=== PATIENT | male | born 1955 | race Caucasian/White ===

== ENCOUNTER 2016-08-01 13:39 | Emergency (ER) | payer MEDICARE, OTHER ==
[2016-08-01] MEDS ORDERED: HYDROmorphone 1 MG/ML 1 ML SYRINGE IM STA (14:08)
--- NOTE | 2016-08-01 14:15 | ED ---
Back Pain HPI - General Chief Complaint: Back Pain/Injury Stated Complaint: Rt Side Pain Time Seen by Provider: 08/01/16 13:59 Source: patient Limitations: no limitations - History of Present Illness Initial Comments: 61-year-old male history of back pain presents with increasing back pain for the last 3 weeks pain radiating down his right lower abdomen worse with bending or moving. Patient suffered a L1 fracture in about 2007. He's had diarrhea multiple imaging studies he's had injections in the past. He did not suffer any new fall. Is no loss of bowel or bladder control pain does not radiate down the legs. He is currently on Percocet and gabapentin and has a pain contract with Dr. Kapadia. He was concerned about his abdomen he has no nausea vomiting diarrhea no pain with eating no fever no chills. He has had diabetes mellitus and hypertension is blood pressure somewhat elevated today per the nurse he states his sugars have been running somewhat elevated. Has been dealing with this with primary care. He did at the time of the injury have an injection of cement into the vertebra - Related Data Home Medications Medication Instructions Recorded Confirmed Gabapentin [Neurontin] 600 mg PO BID 12/17/13 08/01/16 Insulin Aspart [NovoLOG] 7 - 14 unit SQ TID 12/17/13 08/01/16 Insulin Glargine [Lantus] 50 - 100 unit SQ HS 12/17/13 08/01/16 rOPINIRole HCL [Requip] 0.5 mg PO BID 12/17/13 08/01/16 Gabapentin [Gabapentin] 900 mg PO HS 04/27/14 08/01/16 metFORMIN HCL [metFORMIN HCL] 1,000 mg PO BID 04/27/14 08/01/16 oxyCODONE-APAP 10-325MG [Percocet 1 tab PO Q6HR PRN 04/27/14 08/01/16 10-325 mg] Fenofibrate Nanocrystallized 145 mg PO DAILY 08/01/16 08/01/16 [Fenofibrate] Losartan Potassium 100 mg PO DAILY 08/01/16 08/01/16 Metoprolol Succinate [Toprol XL] 100 mg PO DAILY 08/01/16 08/01/16 Previous Rx's Medication Instructions Recorded Gabapentin 800 mg PO TID #90 tab 08/01/16 Allergies Allergy/AdvReac Type Severity Reaction Status Date / Time alprazolam [From Xanax] Allergy Rash/Hives Verified 08/01/16 14:24 duloxetine HCl Allergy "IT DIDN'T Verified 08/01/16 14:24 [From Cymbalta] MAKE ME FEEL WELL" fluoxetine HCl [From Prozac] Allergy Rash/Hives Verified 08/01/16 14:24 pregabalin [From Lyrica] Allergy Swelling Verified 08/01/16 14:24 Review of Systems ROS Statement: Those systems with pertinent positive or pertinent negative responses have been documented in the HPI. ROS Other: All systems not noted in ROS Statement are negative. Constitutional: Denies: fever, chills Eyes: Denies: eye discharge ENT: Denies: ear pain, throat pain, dental pain Respiratory: Denies: cough Cardiovascular: Denies: chest pain Gastrointestinal: Denies: abdominal pain, diarrhea Genitourinary: Denies: urgency, frequency Musculoskeletal: Reports: back pain (Burning pain radiating down from the low back across the right lower abdomen) Neurological: Denies: headache Psychiatric: Denies: anxiety, depression Hematological/Lymphatic: Denies: easy bleeding, easy bruising Past Medical History Past Medical History: Diabetes Mellitus, Hypertension Additional Past Medical History / Comment(s): STEROID INJECTION W/IN 3 MOS, chronic back pain History of Any Multi-Drug Resistant Organisms: None Reported Past Surgical History: Back Surgery Additional Past Surgical History / Comment(s): Facial surgery Past Anesthesia/Blood Transfusion Reactions: No Reported Reaction Past Psychological History: Depression Smoking Status: Current every day smoker Past Alcohol Use History: None Reported Additional Past Alcohol Use History / Comment(s): STARTED SMOKING AT AGE 19 Past Drug Use History: None Reported General Exam Limitations: no limitations General appearance: alert, in no apparent distress Head exam: Present: atraumatic Eye exam: Present: PERRL, EOMI. Absent: scleral icterus ENT exam: Present: normal oropharynx, mucous membranes moist, TM's normal bilaterally Neck exam: Present: normal inspection Respiratory exam: Present: normal lung sounds bilaterally Cardiovascular Exam: Present: regular rate, normal heart sounds GI/Abdominal exam: Present: soft, normal bowel sounds. Absent: tenderness, guarding, rebound Neurological exam: Present: alert, CN II-XII intact Psychiatric exam: Present: normal affect, normal mood Skin exam: Present: warm, dry Course Vital Signs 08/01/16 13:42 Temperature 97.5 F L Pulse Rate 73 Respiratory 20 Rate Blood Pressure 181/79 O2 Sat by Pulse 99 Oximetry Medical Decision Making - Medical Decision Making Good relief from the Dilaudid we'll increase his gabapentin 800 mg 3 times a day. Disposition Clinical Impression: Lumbar radiculopathy Disposition: HOME SELF-CARE Condition: Good Instructions: Chronic Back Pain (ED) Additional Instructions: Continue his Percocet follow-up with Dr. Kapadia and Dr. So Prescriptions: Gabapentin 800 mg PO TID #90 tab Referrals: Debra Rutledge DO [Primary Care Provider] - 1-2 days Time of Disposition: 15:01
[2016-08-01 15:13] VITALS: BP 133/76; PULSE 65; RESP 18; TEMP 97.4
== END 2016-08-01 15:13 | disposition home or self-care (01) ==
LOC: EC 13:39
DX: M54.16 Radiculopathy, lumbar region (principal); G89.29 Other chronic pain; M54.9 Dorsalgia, unspecified; I10 Essential (primary) hypertension; E11.9 Type 2 diabetes mellitus without complications; F17.200 Nicotine dependence, unspecified, uncomplicated; Z79.4 Long term (current) use of insulin; Z79.84 Long term (current) use of oral hypoglycemic drugs; Z79.899 Other long term (current) drug therapy; Z88.8 Allergy status to other drugs, medicaments and biological substances
CPT/HCPCS: 99283; 96372; J1170

== ENCOUNTER → 2019-08-18 | Outpatient (CLI) | payer MEDICARE, OTHER ==
--- NOTE | 2019-08-18 16:41 | MR ---
EXAMINATION TYPE: MR lumbar spine wo con DATE OF EXAM: 08/18/2019 COMPARISON: CT lumbar spine December 22, 2010 HISTORY: Failed back syndrome and radicular pain per order. History of surgery 2008 per patient with pain for 9 years into right leg. TECHNIQUE: Multiplanar, multisequence imaging of the lumbar spine is performed without IV contrast. FINDINGS: Sagittal images of the lumbar spine demonstrate vertebroplasty at L1 level through moderate compression fracture. There is new mild to moderate chronic compression fracture L4 level from 2011 CT. Alignment is stable. Multilevel disc desiccation with disc space heights fairly well maintained. The conus medullaris is normal in position and signal ending inferior L1 level. The bone marrow sig nal intensity is within normal limits. Mild multilevel anterior spurring is seen. Axial images show stable slight retropulsion of L1 vertebra mildly effaces the anterior thecal sac. A djacent disc spaces thought within normal limits. Axial images at L2-L3 level remain within normal limits. Axial images at L3-L4 level show mild facet degenerative changes bilaterally with ujub-wl-[id number] br oad disc bulge most prominent lateral aspects. Spinal canal is preserved. Bilateral neural foramina a re patent. Axial images at L4-L5 level shows moderate facet degenerative changes and ligament flavum hypertrophy effacing posterior lateral thecal sac. There is slight effacement anterior thecal sac due to posteri or retropulsion of the L4 vertebra axial image 12 and sagittal image 9. Moderate right and moderate t o severe left-sided neural foraminal narrowing are felt present. Axial images at L5-S1 level show advanced facet degenerative changes bilaterally. There is moderate l eft and mild right-sided neural foraminal narrowing. There is also a 7 mm synovial cyst on the left c ausing marked mass effect on the lateral aspect spinal canal confirmed on sagittal image 8. No suspicious incidental retroperitoneal findings. Paraspinal muscle bulk is preserved. IMPRESSION: New from 2011 but chronic jbcf-lh-[id number] compression type fracture L4 level. Multilevel degenerative changes greatest in the lower lumbar spine as detailed above.
== END | disposition home or self-care (01) ==
LOC: RADMRIMAIN 15:21
PROVIDERS: ATTEND Physician Assistant
DX: M47.26 Other spondylosis with radiculopathy, lumbar region (principal); S32.048A Other fracture of fourth lumbar vertebra, initial encounter for closed fracture
CPT/HCPCS: 72148

== ENCOUNTER 2020-06-24 13:47 | Emergency (ER) | payer MEDICARE, OTHER ==
[2020-06-24 13:56] VITALS: BP 157/80; PULSE 70; RESP 18; TEMP 98.5
--- NOTE | 2020-06-24 14:53 | ED ---
Back Pain [facility] - General Chief Complaint: Back Pain/Injury Stated Complaint: Back Pain Time Seen by Provider: 06/24/20 14:17 Source: patient Limitations: no limitations - History of Present Illness Initial Comments: Patient is a 65-year-old male presenting to emergency Department with complaints of an increase in his chronic back pain over the past few weeks. Patient has had previous surgeries with Dr. So, over 10 years ago. Patient states he takes Percocets and gabapentin for his pain. He states he hadn't lumbar MRI in July that has yet to follow up with Dr. So. Patient denies any falls or trauma. He states over the past 2 weeks he feels like his lower back pain has increasing. He denies any bowel or bladder incontinence. He denies any numbness and tingling into his lower extremities. He does state that sometimes the pain does radiate into the back of his left or right leg. He states it hurts to stand up straight. He does walk with a walking stick, he has been using this for years. He denies any saddle paresthesias. He denies any fever or chills. He has no further complaints at this time. - Related Data Home Medications Medication Instructions Recorded Confirmed Gabapentin [Neurontin] 600 mg PO BID 12/17/13 08/01/16 INSULIN ASPART (NovoLOG) [NovoLOG] 7 - 14 unit SQ TID 12/17/13 08/01/16 Insulin Glargine [Lantus] 50 - 100 unit SQ HS 12/17/13 08/01/16 rOPINIRole HCL [Requip] 0.5 mg PO BID 12/17/13 08/01/16 Gabapentin 900 mg PO HS 04/27/14 08/01/16 metFORMIN HCL 1,000 mg PO BID 04/27/14 08/01/16 oxyCODONE-APAP 10-325MG [Percocet 1 tab PO Q6HR PRN 04/27/14 08/01/16 10-325 mg] Fenofibrate Nanocrystallized 145 mg PO DAILY 08/01/16 08/01/16 [Fenofibrate] Losartan Potassium 100 mg PO DAILY 08/01/16 08/01/16 Metoprolol Succinate [Toprol XL] 100 mg PO DAILY 08/01/16 08/01/16 Previous Rx's Medication Instructions Recorded Gabapentin 800 mg PO TID #90 tab 08/01/16 Cyclobenzaprine [Flexeril] 5 mg PO BID #10 tablet 06/24/20 Allergies Allergy/AdvReac Type Severity Reaction Status Date / Time alprazolam [From Xanax] Allergy Rash/Hives Verified 06/24/20 13:56 duloxetine HCl Allergy "IT DIDN'T Verified 06/24/20 13:56 [From Cymbalta] MAKE ME FEEL WELL" fluoxetine HCl [From Prozac] Allergy Rash/Hives Verified 06/24/20 13:56 pregabalin [From Lyrica] Allergy Swelling Verified 06/24/20 13:56 Review of Systems ROS Statement: Those systems with pertinent positive or pertinent negative responses have been documented in the HPI. ROS Other: All systems not noted in ROS Statement are negative. Past Medical History Past Medical History: Diabetes Mellitus, Hypertension Additional Past Medical History / Comment(s): STEROID INJECTION W/IN 3 MOS, chronic back pain History of Any Multi-Drug Resistant Organisms: None Reported Past Surgical History: Back Surgery Additional Past Surgical History / Comment(s): Facial surgery Past Anesthesia/Blood Transfusion Reactions: No Reported Reaction Past Psychological History: Depression Smoking Status: Current every day smoker Past Alcohol Use History: None Reported Past Drug Use History: None Reported General Exam - General Exam Comments Initial Comments: GENERAL: Patient is well-developed and well-nourished. Patient is nontoxic and in no acute distress. HEAD: Atraumatic, normocephalic. EYES: Pupils equal round and reactive to light, extraocular movements intact, sclera anicteric, conjunctiva are normal. Eyelids were unremarkable. ENT: TMs normal, nares patent, oropharynx clear without exudates. Moist mucous membranes. NECK: Normal range of motion, supple without lymphadenopathy or JVD. LUNGS: Unlabored respirations. Breath sounds clear to auscultation bilaterally and equal. No wheezes rales or rhonchi. HEART: Regular rate and rhythm without murmurs, rubs or gallops. ABDOMEN: Soft, nontender, normoactive bowel sounds. No guarding, no rebound. No masses appreciated. : Deferred MUSCULOSKELETAL: Patient has no pain to palpation along the lumbar spine, lumbar paraspinals. He does have increased pain with lumbar extension. He has full 5 out of 5 strength of lower extremities bilaterally. He is neurovascular intact, sensation is equal and bilateral. No clubbing or cyanosis. NEUROLOGICAL: Patient is alert and oriented x 3. Motor and sensory are also intact. Cranial nerves II through XII grossly intact. Symmetrical smile. Normal speech, normal gait, patient walks with a walking stick. PSYCH: Normal mood, normal affect. SKIN: Warm, Dry, normal turgor, no rashes or lesions noted. Limitations: no limitations Course Vital Signs 06/24/20 13:52 Temperature 98.5 F Pulse Rate 70 Respiratory 18 Rate Blood Pressure 157/80 O2 Sat by Pulse 97 Oximetry Medical Decision Making - Medical Decision Making Patient is a 65-year-old male, with history of chronic back pain, presenting with an increase in his chronic back pain over the past 2 weeks. He denies any injuries or falls. Lumbar x-rays revealed diffuse osteopenia with multilevel degenerative disc disease, compression deformity of L4 which was present in the MRI in July, no other new findings. Patient has no saddle paresthesia, no numbness and tingling to his lower extremities, strength is equal and bilateral, no signs of cauda equina. I discussed these findings with the patient. I did offer pain medicine here, patient declined. Patient will have a trial of a muscle relaxer and heat to the area. He also follow-up with Dr. Vázquez. He is stable for discharge. He will continue with his already prescribed pain medications as well as gabapentin. Return parameters were discussed with the patient and he verbalized understanding. Disposition Clinical Impression: Acute exacerbation of chronic low back pain Disposition: HOME SELF-CARE Condition: Stable Instructions (If sedation given, give patient instructions): Acute Low Back Pain (ED) Additional Instructions: Please return to the Emergency Department if symptoms worsen or any other concerns. Continue with already prescribed medication for pain. Trial of Flexeril for muscle spasms. Heat to the area, follow-up with orthopedic doctor as discussed. Prescriptions: Cyclobenzaprine [Flexeril] 5 mg PO BID #10 tablet Is patient prescribed a controlled substance at d/c from ED?: No Referrals: Debra Rutledge DO [Primary Care Provider] - 1-2 days Chuy So DO [Doctor of Osteopathic Medicine] - 1-2 days
--- NOTE | 2020-06-24 14:59 | XR ---
EXAM TYPE: LUMBAR SPINE X RAY SERIES COMPARISON: 12/22/2010 HISTORY: Back pain TECHNIQUE: 4 views are submitted. FINDINGS: Alignment is anatomic. The pedicles are intact. Evidence of previous vertebroplasty noted. There is a mild superior endplate compression deformity of L4 which is new relative to the prior exam of 2010 but of indeterminate age. Diffuse osteopenia and multilevel degenerative change, hypertrophic changes and facet arthropathy. IMPRESSION: 1. Diffuse osteopenia with multilevel degenerative disc disease. Age-indeterminate moderate superior endplate compression fracture. Correlate with MRI or CT as clinically warranted.
== END 2020-06-24 15:38 | disposition home or self-care (01) ==
LOC: EC 13:47
DX: G89.29 Other chronic pain (principal); M54.5 Low back pain; M51.36 Other intervertebral disc degeneration, lumbar region; M85.88 Other specified disorders of bone density and structure, other site; E11.9 Type 2 diabetes mellitus without complications; I10 Essential (primary) hypertension; F17.200 Nicotine dependence, unspecified, uncomplicated; Z79.4 Long term (current) use of insulin; Z79.899 Other long term (current) drug therapy; Z88.8 Allergy status to other drugs, medicaments and biological substances
CPT/HCPCS: 72100; 99283

== ENCOUNTER → 2020-08-09 | Outpatient (CLI) | payer MEDICARE, OTHER ==
--- NOTE | 2020-08-09 14:35 | CT ---
EXAMINATION TYPE: CT lumbar spine wo con DATE OF EXAM: 08/09/2020 2:18 PM COMPARISON: CT lumbar spine December 22, 2010 HISTORY: Low back pain, hx of multiple falls with back injuries. CT DLP: 928 mGycm Automated exposure control for dose reduction was used. Unenhanced CT of the lumbar spine was performed. Bone and soft tissue window settings are submitted as well as coronal and sagittal reconstructions. 5 lumbar type vertebra are redemonstrated. There is persistent vertebroplasty and moderate compressio n type fracture at L1 level. Osseous structures are demineralized. There is mild to moderate compress ion type fracture L4 level without linear lucency to suggest acute fracture. There is severe disc spa ce narrowing T12-L1 level with grade 1 retrolisthesis T12 on L1. Posterior L1 retropulsion effacing a nterior thecal sac sagittal image 35 unchanged from prior study. Posterior spur disc complex L4-L5 le sedrick basis anterior thecal sac sagittal image 36. No acute fracture or dislocation is seen. Review of axial images show moderate to advanced facet degenerative changes and ligamentum flavum hyp ertrophy contributing to spinal canal stenosis at L4-L5 level on image 61. Moderate to advanced facet degenerative changes L5-S1 level are identified. Moderate calcified plaque of the abdominal aorta extends into branch vessels. There are scattered amanda cifications throughout the pancreas consistent with products of chronic pancreatitis. IMPRESSION: Demineralization. No acute fracture or dislocation is seen. Persistent moderate compressi on type fracture with vertebroplasty L1 level. Interval but chronic auux-zs-duwizias compression type fracture L4 level. Progression in degenerative changes lower lumbar spine. No paraspinal masses are identified. Lumbar segments are intact.
== END | disposition home or self-care (01) ==
LOC: RADCTMAIN 13:49
PROVIDERS: ATTEND Orthopaedic Surgery
DX: M47.816 Spondylosis without myelopathy or radiculopathy, lumbar region (principal); M81.8 Other osteoporosis without current pathological fracture; S32.018A Other fracture of first lumbar vertebra, initial encounter for closed fracture; Z88.8 Allergy status to other drugs, medicaments and biological substances; Z98.890 Other specified postprocedural states
CPT/HCPCS: 72131

== ENCOUNTER → 2020-08-15 | Day surgery (SDC) | payer MEDICARE, OTHER ==
[2020-08-13 14:09] VITALS: BMI 28.3
[~2020-08-15] MED LIST: DEXAMETHASONE SOD PHOSPHATE 10 MG/ML 1 ML VIAL ONE; IOPAMIDOL M200 10 ML VIAL ONE; IV FLUID CONTINUATION 1,000 ML IV ONE; LACTATED RINGERS 1,000 ML IV ONE; LIDOCAINE 1% (10MG/ML) FOR IV START INTRADERMA ONE; LIDOCAINE 1% (PF) 10 MG/ML (30 ML SDV) ONE; MIDAZOLAM 2 MG/2 ML VIAL ONE; fentaNYL (PF) 50 MCG/ML 2 ML AMP ONE
[2020-08-15 11:18] VITALS: TEMP 97.6
[2020-08-15 11:44] LABS: Glucose,Whole Blood 198 mg/dL (75-99)
--- NOTE | 2020-08-15 11:46 | P.PCN ---
Date of Procedure: 08/15/20 Surgeon: Cade Victoria Pathology: none sent Condition: stable Disposition: PACU Description of Procedure: PREOPERATIVE DIAGNOSIS: Lumbar radiculopathy POSTOPERATIVE DIAGNOSIS: Lumbar radiculopathy PROCEDURE 1. Transforaminal epidural steroid injection under fluoroscopic guidance at L5- S1 left side 2. Lumbar epidurogram. SURGEON: Cade Victoria MD HOLTER TECHNICIAN: ANESTHESIA: Local with 1% lidocaine; IV sedation with Versed and fentanyl. EBL: Minimal PROCEDURE INDICATION: The patient with low back pain and radiculopathy symptoms unresponsive to conservative treatment. PROCEDURE DESCRIPTION / TECHNIQUE: The patient was seen and identified in the preoperative area. Risks, benefits, complications, and alternatives were discussed with the patient. The patient agreed to proceed with the procedure and signed the consent. IV was started, and vital signs were stable. Patient was taken to the OR and time out was completed. The patient was placed in the prone position on procedure table and a pillow was placed under the abdomen to reduce lumbar lordosis. The lumbosacral area was prepped and draped in the usual sterile fashion. Critical pause was taken. Vital signs were closely monitored during the procedure. Conscious sedation was used during the procedure to decrease patients anxiety. The vertebral body of the lumbar vertebra L5 was squared off by tilting the C-arm cephalad then the C-arm was tilted to the oblique position and the target point was at the 6 o'clock position of the pedicle of then skin and deeper tissues were localized with 1% lidocaine. Subsequently, a 22-gauge 5- inch spinal needle was advanced under a tunneled view fluoroscopic guidance just underneath the chin of the Ender dog at the . Under lateral fluoroscopy, the needle was then advanced to the middle of the upper one third of the foramen between( ). After negative aspiration of CSF and blood and with no paresthesias, 1 mL of omnipaque contrast dye was injected excellent epidurogram and outlining of the L nerve root was identified. Subsequently, 2 mL of block solution containing 10 mg of Decadron and 1 mL of Lidocaine 1% PF was injected. Needle was removed and the same . At the end of the procedure, skin was cleansed, and bandages were applied. The patient has severe osteopenia which made the procedure technically more difficult due to difficulty identifying the bony landmarks. COMPLICATIONS: None COMMENTS: DISPOSITION / PLANS: The patient was placed in a supine position and transferred to the recovery area in a stable condition for observation. There was no evidence of lower extremity motor or sensory deficit after the procedure. Patient was discharged from the recovery room after meeting discharge criteria. Home discharge instructions were given to the patient by the staff.
[2020-08-15 12:08] VITALS: BP 134/76; PULSE 72; RESP 16
--- NOTE | 2020-08-15 12:20 | P.CONS ---
History of Present Illness - Reason for Consult Consult date: 08/15/20 - Chief Complaint Lower back and left leg pain - History of Present Illness This is a 65-year-old gentleman who was referred to our clinic by Dr. Hicksfor an L5-S1 transforaminal epidural steroid injection. The patient has chronic low back pain with radiation to the left ankle with numbness and tingling in the left leg in no specific radicular distribution. The patient had vertebral fracture due to trauma previously and also had kyphoplasty. He does have a history of osteopenia. The patient takes Percocet 4 times a day for his pain at home. He has tried physical therapy with little or no benefits as he states. His pain increases by standing, walking and any prolonged physical activities. The patient has a history of diabetes but he denies any treatment with anticoagulants. Past Medical History Past Medical History: Diabetes Mellitus, GERD/Reflux, Hypertension Additional Past Medical History / Comment(s): chronic back pain, rt leg RLS History of Any Multi-Drug Resistant Organisms: None Reported Past Surgical History: Back Surgery Additional Past Surgical History / Comment(s): Facial surgery Past Anesthesia/Blood Transfusion Reactions: No Reported Reaction Smoking Status: Current every day smoker Medications and Allergies Home Medications Medication Instructions Recorded Confirmed Type rOPINIRole HCL [Requip] 0.5 mg PO DAILY 12/17/13 08/15/20 History oxyCODONE-APAP 10-325MG [Percocet 1 tab PO Q6HR PRN 04/27/14 08/15/20 History 10-325 mg] Fenofibrate Nanocrystallized 145 mg PO DAILY 08/01/16 08/15/20 History [Fenofibrate] Gabapentin 800 mg PO TID #90 tab 08/01/16 08/15/20 Rx Losartan Potassium 100 mg PO DAILY 08/01/16 08/15/20 History Metoprolol Succinate [Toprol XL] 100 mg PO DAILY 08/01/16 08/15/20 History Dulaglutide [Trulicity] 1.5 mg SQ WALLIS 08/13/20 08/15/20 History Insulin Glargine,Hum.rec.anlog 36 unit SQ HS 08/13/20 08/15/20 History [Basaglar Kwikpen U-100] Meloxicam [Mobic] 15 mg PO DAILY 08/13/20 08/15/20 History amLODIPine [Norvasc] 5 mg PO DAILY 08/13/20 08/15/20 History buPROPion HCL [Wellbutrin XL] 300 mg PO DAILY 08/13/20 08/15/20 History rOPINIRole HCL [Requip] 1 mg PO HS 08/13/20 08/15/20 History Allergies Allergy/AdvReac Type Severity Reaction Status Date / Time alprazolam [From Xanax] Allergy Rash/Hives Verified 08/13/20 13:47 duloxetine HCl Allergy "IT DIDN'T Verified 08/13/20 13:47 [From Cymbalta] MAKE ME FEEL WELL" fluoxetine HCl [From Prozac] Allergy Rash/Hives Verified 08/13/20 13:47 pregabalin [From Lyrica] Allergy Swelling Verified 08/13/20 13:47 Physical Exam Vitals: Vital Signs Temp Pulse Resp BP Pulse Ox 08/15/20 12:07 72 16 134/76 97 08/15/20 11:50 76 15 128/73 97 08/15/20 11:11 97.6 F 88 16 167/85 94 L Intake and Output 08/14/20 08/15/20 08/15/20 22:59 06:59 14:59 Intake Total 300 Balance 300 Intake: IV 300 Other: Weight 102 kg - EENT Eyes: PERRLA - Neurologic Muscle strength in the lower extremities showed decreased but symmetrical weakness for knee flexion and extension to 4 out of 5 and normal ankle flexion and extension however decreased left toe dorsiflexion 4 out of 5 compared to the right side. He has positive tenderness in the lumbar paravertebral musculature bilaterally Straight leg raising test is mildly positive on the left side Neurologic: CNII-XII intact - Psychiatric Psychiatric: A&O x's 3, appropriate affect, intact judgment & insight Results Results: The patient had an MRI of the lumbar spine in 2019 which showed advanced facet the gentle changes bilaterally in the lower lumbar levels and moderate left neuroforaminal narrowing at the L5-S1 level with 7 mm synovial cyst on the left side causing marked mass effect on the lateral aspect of the spinal canal. It also showed moderate to severe neural foraminal stenosis on the left side at the L4-L5 level with multilevel disc desiccation and also fracture and the vertebral body of L1. Labs: Abnormal Lab Results - Last 24 Hours (Table) 08/15/20 Range/Units 11:23 POC Glucose (mg/dL) 198 H (75-99) mg/dL Assessment and Plan Plan: This is a 65-year-old gentleman with chronic lower back pain with radiation to the left lower extremity due to neuroforaminal stenosis and synovial cyst on the left side causing significant mass effect on the left side of the spinal canal. We will proceed with L5-S1 transforaminal epidural steroid injection on the left side under fluoroscopic guidance. The procedure will be repeated one more time and then the patient will follow up with . I thank you for the referral
--- NOTE | 2020-08-15 13:01 | FL ---
Fluoroscopy HISTORY: Pain 17 seconds fluoroscopy time supplied to the referring clinician. 2 intraoperative C-arm images docum ent the procedure. See dictated report from anesthesia.
== END ==
LOC: ORPAIN 10:59
PROVIDERS: ATTEND Anesthesiology
DX: G89.29 Other chronic pain (principal); M54.16 Radiculopathy, lumbar region; M48.061 Spinal stenosis, lumbar region without neurogenic claudication; M85.80 Other specified disorders of bone density and structure, unspecified site; E11.9 Type 2 diabetes mellitus without complications; I10 Essential (primary) hypertension; K21.9 Gastro-esophageal reflux disease without esophagitis; G25.81 Restless legs syndrome; F17.200 Nicotine dependence, unspecified, uncomplicated; Z88.8 Allergy status to other drugs, medicaments and biological substances; Z87.81 Personal history of (healed) traumatic fracture; Z98.890 Other specified postprocedural states; Z87.39 Personal history of other diseases of the musculoskeletal system and connective tissue; Z79.899 Other long term (current) drug therapy; Z79.891 Long term (current) use of opiate analgesic; Z79.4 Long term (current) use of insulin; Z79.1 Long term (current) use of non-steroidal anti-inflammatories (NSAID)
CPT/HCPCS: 64483; J2250; J1100; J2001; J3010; Q9966; 99152

== ENCOUNTER 2020-08-29 11:24 | Day surgery (SDC) | payer MEDICARE, OTHER ==
[2020-08-28 09:45] VITALS: BMI 28.1
[~2020-08-29 11:24] MED LIST changes: -DEXAMETHASONE SOD PHOSPHATE 10 MG/ML 1 ML VIAL ONE; -IOPAMIDOL M200 10 ML VIAL ONE; -IV FLUID CONTINUATION 1,000 ML IV ONE; -LACTATED RINGERS 1,000 ML IV ONE; +LACTATED RINGERS 1,000 ML IV SCH; -LIDOCAINE 1% (10MG/ML) FOR IV START INTRADERMA ONE; -LIDOCAINE 1% (PF) 10 MG/ML (30 ML SDV) ONE; -MIDAZOLAM 2 MG/2 ML VIAL ONE; -fentaNYL (PF) 50 MCG/ML 2 ML AMP ONE
[2020-08-29 11:55] VITALS: RESP 16; TEMP 97.4
[2020-08-29 12:09] LABS: Glucose,Whole Blood 156 mg/dL (75-99)
[2020-08-29] MEDS ORDERED: LIDOCAINE 1% (10MG/ML) FOR IV START INTRADERMA ONE (12:09)
[2020-08-29] MEDS ORDERED: methylPREDNISolone ACETATE 40 MG/ML 1 ML VIAL ONE (12:21)
[2020-08-29] MEDS ORDERED: fentaNYL (PF) 50 MCG/ML 2 ML AMP ONE (12:21)
[2020-08-29] MEDS ORDERED: MIDAZOLAM 2 MG/2 ML VIAL ONE (12:21)
[2020-08-29] MEDS ORDERED: IOPAMIDOL M200 10 ML VIAL ONE (12:21)
--- NOTE | 2020-08-29 12:36 | P.PCN ---
Date of Procedure: 08/29/20 Procedure(s) Performed: PREOPERATIVE DIAGNOSIS: Lumbar radiculopathy . POSTOPERATIVE DIAGNOSIS: Same as preoperative diagnoses. PROCEDURE 1. Transforaminal epidural steroid injection under fluoroscopic guidance at left L5-S1 level. (Fluoroscopy images stored on file in the radiology Department ) 2. Lumbar epidurogram . ANESTHESIA: Local with 1% lidocaine 3 ml , moderate sedation with intravenous Versed 2 mg ,and fentanyle 50 micrograms. EBL: Minimal PROCEDURE INDICATION: The patient with low back pain and radiculopathy symptoms unresponsive to conservative treatment. PROCEDURE DESCRIPTION / TECHNIQUE: The patient was seen and identified in the preoperative area. Risks, benefits, complications, and alternatives were discussed with the patient. The patient agreed to proceed with the procedure and signed the consent. IV was started, and vital signs were stable. Patient was taken to the OR and time out was completed. The patient was placed in the prone position on procedure table and a pillow was placed under the abdomen to reduce lumbar lordosis. The lumbosacral area was prepped and draped in the usual sterile fashion. Critical pause was taken. Vital signs were closely monitored during the procedure. Conscious sedation was used during the procedure to decrease patient s anxiety. Using oblique fluoroscopy, the chin of the `MelodyEnder dog at left L5-S1 level was identified, and the skin and deeper tissues just below was localized with 1% lidocaine. Subsequently, a 22-gauge 3.5-inch spinal needle was advanced under a tunneled view fluoroscopic guidance just underneath the chin of the `Cuauhtemocy dog at the left L5-S1 Under lateral fluoroscopy, the needle was then advanced to the posterior border of the interforaminal space. After negative aspiration of CSF and blood and with no paresthesias, 1 mL Isovue 200 contrast dye was injected excellent epidurogram and outlining of the nerve root Subsequently, 3 mL of block solution containing 40 mg Depo-Medrol and 2 mL of 0.9% normal saline PF was injected. Needle was removed . At the end of the procedure, skin was cleansed, and bandages were applied. COMPLICATIONS:none DISPOSITION / PLANS: The patient was placed in a supine position and transferred to the recovery area in a stable condition for observation. There was no evidence of lower extremity motor or sensory deficit after the procedure. Patient was discharged from the recovery room after meeting discharge criteria. Home discharge instructions were given to the patient by the staff. The patient was reexamined prior to discharge.
[2020-08-29] MEDS ORDERED: IV FLUID CONTINUATION 700 ML IV ONE (12:45)
[2020-08-29 12:56] VITALS: BP 131/77; PULSE 70
--- NOTE | 2020-08-29 13:54 | FL ---
Fluoroscopy HISTORY: Pain 6 seconds fluoroscopy time supplied to the referring clinician. 1 intraoperative C-arm images docume nt the procedure. See dictated report from anesthesia.
== END 2020-08-29 13:13 | disposition home or self-care (01) ==
LOC: ORPAIN 11:24
PROVIDERS: ATTEND Specialist
DX: M54.16 Radiculopathy, lumbar region (principal); E11.9 Type 2 diabetes mellitus without complications; Z88.1 Allergy status to other antibiotic agents; Z88.8 Allergy status to other drugs, medicaments and biological substances
CPT/HCPCS: 64483; J2250; J1030; J3010; Q9966

== ENCOUNTER 2020-10-08 11:53 | Day surgery (SDC) | payer MEDICARE, OTHER ==
[2020-10-04 14:21] VITALS: BMI 28.2
[2020-10-08 12:35] VITALS: TEMP 97.8
[2020-10-08 12:43] LABS: Glucose,Whole Blood 117 mg/dL (75-99)
[2020-10-08] MEDS ORDERED: methylPREDNISolone ACETATE 40 MG/ML 1 ML VIAL ONE (12:44)
[2020-10-08] MEDS ORDERED: IOPAMIDOL M200 10 ML VIAL ONE (12:44)
[2020-10-08] MEDS ORDERED: fentaNYL (PF) 50 MCG/ML 2 ML AMP ONE (12:44)
[2020-10-08] MEDS ORDERED: MIDAZOLAM 2 MG/2 ML VIAL ONE (12:44)
--- NOTE | 2020-10-08 13:03 | P.PCN ---
Date of Procedure: 10/08/20 Procedure(s) Performed: PREOPERATIVE DIAGNOSIS: Lumbar radiculopathy . POSTOPERATIVE DIAGNOSIS: Same as preoperative diagnoses. PROCEDURE 1. Transforaminal epidural steroid injection under fluoroscopic guidance at left L5-S1 level. (Fluoroscopy images stored on file in the radiology Department ) 2. Lumbar epidurogram . ANESTHESIA: Local with 1% lidocaine 3 ml , moderate sedation with intravenous Versed 2 mg ,and fentanyle 100 micrograms. EBL: Minimal PROCEDURE INDICATION: The patient with low back pain and radiculopathy symptoms unresponsive to conservative treatment. PROCEDURE DESCRIPTION / TECHNIQUE: The patient was seen and identified in the preoperative area. Risks, benefits, complications, and alternatives were discussed with the patient. The patient agreed to proceed with the procedure and signed the consent. IV was started, and vital signs were stable. Patient was taken to the OR and time out was completed. The patient was placed in the prone position on procedure table and a pillow was placed under the abdomen to reduce lumbar lordosis. The lumbosacral area was prepped and draped in the usual sterile fashion. Critical pause was taken. Vital signs were closely monitored during the procedure. Conscious sedation was used during the procedure to decrease patient s anxiety. Using oblique fluoroscopy, the chin of the `Cuauhtemocy dog at left L5-S1 level was identified, and the skin and deeper tissues just below was localized with 0.5% Ropivacaine 3 ml . Subsequently, a 22-gauge 5-inch spinal needle was advanced under a tunneled view fluoroscopic guidance just underneath the chin of the `Cuauhtemocy dog at the left L5-S1 Under lateral fluoroscopy, the needle was then advanced to the posterior border of the interforaminal space. After negative aspiration of CSF and blood and with no paresthesias, 1 mL Isovue 200 contrast dye was injected excellent epidurogram and outlining of the nerve root Subsequently, 3 mL of block solution containing 40 mg Depo-Medrol and 2 mL of 0.9% normal saline PF was injected. Needle was removed . At the end of the procedure, skin was cleansed, and bandages were applied. COMPLICATIONS:none DISPOSITION / PLANS: The patient was placed in a supine position and transferred to the recovery area in a stable condition for observation. There was no evidence of lower extremity motor or sensory deficit after the procedure. Patient was discharged from the recovery room after meeting discharge criteria. Home discharge instructions were given to the patient by
--- NOTE | 2020-10-08 13:11 | FL ---
EXAMINATION TYPE: FL guided pain mgmt statistic DATE OF EXAM: 10/08/2020 HISTORY: Fluoroscopy time 7 seconds of fluoroscopy provided. IMPRESSION: 1. Fluoroscopy time.
[2020-10-08] MEDS ORDERED: IV FLUID CONTINUATION 1,000 ML IV ONE (13:12)
[2020-10-08 13:13] VITALS: RESP 18
[2020-10-08 13:35] VITALS: BP 115/73; PULSE 82
== END 2020-10-08 13:52 | disposition home or self-care (01) ==
LOC: ORPAIN 11:53
PROVIDERS: ATTEND Specialist
DX: M54.16 Radiculopathy, lumbar region (principal); E11.9 Type 2 diabetes mellitus without complications; Z88.8 Allergy status to other drugs, medicaments and biological substances
CPT/HCPCS: 64483; J2250; J1030; J3010; Q9966; 99152

== ENCOUNTER → 2020-12-02 | Outpatient (CLI) | payer MEDICARE, OTHER | END | disposition home or self-care (01) | LOC: LABPAT 09:55 | PROVIDERS: ATTEND Orthopaedic Surgery | DX: Z01.818 Encounter for other preprocedural examination (principal); I10 Essential (primary) hypertension; I44.0 Atrioventricular block, first degree; M48.07 Spinal stenosis, lumbosacral region; M48.061 Spinal stenosis, lumbar region without neurogenic claudication | CPT/HCPCS: 86850; 86900; 86901; 87070; 93005 ==

== ENCOUNTER 2020-12-10 06:11 | Inpatient (IN) | payer MEDICARE, OTHER ==
[2020-12-05 12:49] VITALS: BMI 28.3
[~2020-12-10 06:11] MED LIST changes: +ACETAMINOPHEN TAB 500 MG TAB PO PRN; +GABAPENTIN 300 MG CAP PO PRN; -LACTATED RINGERS 1,000 ML IV SCH; +ONDANSETRON 4 MG/2 ML VIAL IVP PRN; +TRANEXAMIC ACID 1,000 MG in SODIUM CHLORIDE 0.9% 100 ML IVPB PRN
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
[2020-12-10] MEDS ORDERED: DEXAMETHASONE SOD PHOSPHATE 4 MG/ML 1 ML VIAL IV ONE (06:36)
[2020-12-10] MEDS ORDERED: LIDOCAINE 1% (10MG/ML) FOR IV START INTRADERMA PRN (06:36)
[2020-12-10] MEDS ORDERED: CYCLOBENZAPRINE 10 MG TAB PO PRN (07:04)
[2020-12-10] MEDS ORDERED: HYDROmorphone 0.5 MG/0.5 ML SYRINGE IVP PRN (07:04)
[2020-12-10] MEDS ORDERED: ONDANSETRON 4 MG/2 ML VIAL IVP PRN (07:04)
[2020-12-10 07:05] LABS: Glucose,Whole Blood 147 mg/dL (75-99)
[2020-12-10] MEDS: LACTATED RINGERS 1,000 ML IV SCH (07:05)
[2020-12-10] MEDS ORDERED: NEOSTIGMINE 1 MG/ML 10 ML VIAL ONE (07:25)
[2020-12-10] MEDS ORDERED: SUCCINYLCHOLINE CHLORIDE 100 MG/5 ML SYR IV ONE (07:25)
[2020-12-10] MEDS ORDERED: GLYCOPYRROLATE 0.2 MG/ML 2 ML VIAL ONE (07:25)
[2020-12-10] MEDS ORDERED: TRANEXAMIC ACID 1,000 MG/10 ML VIAL ONE (07:25)
[2020-12-10] MEDS ORDERED: ROCURONIUM 10 MG/ML (5 ML VIAL) IV ONE (07:25)
[2020-12-10] MEDS ORDERED: LIDOCAINE 1% INJ 10MG/ML (20 ML MDV) ONE (07:25)
[2020-12-10] MEDS ORDERED: SODIUM CHLORIDE 0.9% 100 ML BAG ONE (07:25)
[2020-12-10] MEDS ORDERED: fentaNYL (PF) 50 MCG/ML 2 ML AMP ONE (07:25)
[2020-12-10] MEDS ORDERED: MIDAZOLAM 2 MG/2 ML VIAL ONE (07:25)
[2020-12-10] MEDS ORDERED: PHENYLEPHRINE-0.9% NACL SYG 1,000 MCG/10 ML SYRINGE ONE (07:25)
[2020-12-10] MEDS ORDERED: PROPOFOL 10 MG/ML 20 ML VIAL IV ONE (07:25)
[2020-12-10] MEDS ORDERED: KETAMINE 10 MG/ML 20 ML VIAL ONE (07:25)
[2020-12-10] MEDS ORDERED: THROMBIN (BOVINE) 5,000 UNIT VIAL TOPICAL ONE (08:10)
[2020-12-10] MEDS ORDERED: GELATIN SPONGE,ABSORB (LARGE) 1 EACH SPONGE TOPICAL ONE (08:10)
[2020-12-10] MEDS ORDERED: VANCOMYCIN 1,000 MG VIAL MISCELLANE ONE (08:10)
[2020-12-10] MEDS ORDERED: BUPIVACAINE (PF) 0.25% 30 ML VIAL SQ ONE (08:10)
[2020-12-10] MEDS ORDERED: LACTATED RINGERS 1,000 ML IV ONE (10:09)
--- NOTE | 2020-12-10 10:57 | FL ---
Fluoroscopy HISTORY: Lumbar laminectomy 16 seconds fluoroscopy time supplied to the referring clinician. 4 intraoperative C-arm images docum ent the procedure. See dictated report from orthopedic surgery.
--- NOTE | 2020-12-10 10:57 | XR ---
Limited lumbar spine HISTORY: Lumbar laminectomy 4 intraoperative C-arm images document the procedure
[2020-12-10 12:01] LABS: Glucose,Whole Blood 187 mg/dL (75-99)
[2020-12-10] MEDS: KETOROLAC 15 MG/ML 1 ML VIAL IVP SCH ×3 (12:16→23:40)
[2020-12-10] MEDS: HYDROmorphone 0.5 MG/0.5 ML SYRINGE IVP PRN ×2 (13:00→13:08)
[2020-12-10] MEDS: ACETAMINOPHEN IV (For NPO) 1,000 MG in EMPTY BAG 1 BAG IVPB SCH ×2 (13:57→19:49)
[2020-12-10] MEDS: 0.9% NACL WITH KCL 20 MEQ/L 1,000 ML IV SCH (14:21)
--- NOTE | 2020-12-10 19:29 | P.OP ---
Date of Procedure: 12/10/20 Preoperative Diagnosis: 1. L4-S1 stenosis 2. 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 L4-5 stenosis 4. Neurogenic claudication Postoperative Diagnosis: 1. L4-S1 stenosis 2. 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 L4-5 stenosis 4. Neurogenic claudication Procedure(s) Performed: 1. L4-5 bilateral laminotomy, medial facetectomy and foraminotomy 2. L5-S1 bilateral laminotomy, medial facetectomy and foraminotomy 3. L4-5 coflex interspinous spacer placement Implants: Coflex 10 mm Anesthesia: GETA Surgeon: Hermes Hicks Washer Assembler #1: Cleve Salmon (was present for the entire case and necessary due to complextiy of the case. ) Estimated Blood Loss (ml): 200 IV fluids (ml): 1,500 Urine output (ml): 300 Pathology: other (L5-S1 L side facet cyst) Condition: stable Disposition: PACU Indications for Procedure: 65 yo male presented with continued leg pain, neurogenic claudication and back pain with buttock radiation and b/l LE radiculopathy. He was worked up and found to have L4-S1 stenosis with L5-S1 facet cyst on the L with severe stenosis. He underwent conservative measures including PT, injections, medications OTC and RX as well as home exercises. None of this helped the pt and he continued to be symptomatic. He has elected to undergo a procedure to address this problem as his legs have gotten weaker and have more pain. Pt does take chronic meds for pain percocet 10, and these are no longer controlling his pain as well. H denies any bowel or bladder issues. No perineal numbness/tingling but he does state constipation. Operative Findings: Severe stenosis L4-S1 with facet and ligamental hypertrophy, exuberent. Large L5-S1 L side facet cyst causing severe central and foraminal stenosis. Description of Procedure: The patient was seen and examined in the preoperative area. All preoperative protocols were followed. Informed consent was obtained risks and benefits of the procedure were discussed at length. Risks including bleeding infection damage to the surrounding tissue and risk of reoperation were discussed with the patient. Risk of anesthesia up to and including was a discussed with the patient. These are outlined in the risk review. They were willing to accept these risks and all of the risks of surgery. The patient was given a weight- based dose of antibiotics in the form of Ancef 2 g. The patient was seen and evaluated by the anesthesia team who deemed them fit for surgery. The site was marked, the patient was willing to proceed with the procedure. The patient was transferred to the operative suite by the Department of anesthesia. They were then drifted off to sleep by the department anesthesia GETA. The patient tolerated this well. [Henry catheter was placed by nursing staff, atraumatically]. Once confirmation of lines and ventilation the patient was transferred to a prone Butch Jamie table very carefully. All bony prominences including wrists, elbows, axilla, chest, hips, and thighs, and feet were padded very well. Special attention was paid to the genitalia and these were padded accordingly. SCDs were placed on bilateral lower extremities and were connected. Arms were well padded and placed [on arm boards up and out in the 90/90 position]. Once in position, again we confirmed good ventilation capabilities and that lines were running appropriately. The patient's lumbar spine was then exposed. 1010s were placed outlining the incision site. Standard alcohol was used to clean the incision site and allowed to dry. C-arm was used to biomark the patient and confirm level for incision which was marked with a skin marker. Operative briefing was performed with all teams and everyone in agreement to proceed. The patient was then prepped and draped in a normal sterile fashion. Timeout was then performed and all parties were in agreement with the procedure to be performed. Skin incision was made midline over the previous about marked area and taken down to the lumbosacral fascia which was identified and cleaned with a Ty. Dissection was using meticulous hemostasis was obtained and line fasciotomy was then made and subperiosteal dissection was taken down over the L4 and L5 lamina as well as the S1 lamina. It was noted the patient had transitional segment in this region which appeared to be more like a lumbar segment and sacral segment however on lateral fluoroscopy were able to confirm our levels of surgery is to be L4 and L5 which were the correct levels. We then proceeded to place the Ve rsatrac retractor was this is in place we irrigated the wound. We then proceeded with laminotomy on the left-hand side at L5-S1 there is a large facet cyst which was encountered during the laminotomy and medial facetectomy as well as a foraminotomy in this area. There is extreme adherence to the dura in this area as well meticulous dissection was done with a [place] 4 to remove this. There were no dural leaks are noted. Foraminotomies was performed as well as this level to open up the area and the cyst was removed in its entirety we did take out a piece of the cyst and sent it for pathology. We then proceeded to perform the L4 5 laminotomy on the left-hand side medial facetectomy as well as foraminotomies were also performed. We took special care not to undercut the lamina on the side too much as we are planning on placing a Coflex device. Interpretation of the right hand side redid a laminotomy of the right handed right side L4 5 region as well as medial facetectomy and foraminotomy. We will also perform the same at L5-S1. Meticulous hemostasis was achieved with FloSeal and Surgicel as well as bipolar electrocautery we then removed the interspinous ligament at L4-L5 using a narrow Ronjair once this was removed we cleaned up the edges of the spinous processes and lamina with a high-speed bur. We then used sizers and lateral fluoroscopy to size and placed the Coflex device within 2-3 mm of the dura. This is confirmed using a ball probe. We then selected a 10 mm device and placed this under AP and lateral fluoroscopy. It was impacted into place and the fins were then crimped into position. The device was tested with a Saxton and was stable. We will take AP and lateral fluoroscopy which showed good placement. The wound was then copiously irrigated with normal sterile saline. We then over the dura performed a Valsalva maneuver to 40 mmHg there is no dural tear noted however due to the erosion of the dura in the area secondary to the high amount of stenosis is elected to Prophylactically Pl., Surgicel as well as Tisseel in this area Surgicel and Tisseel were then placed in a sandwich fashion. We then placed Surgicel powder in the wound to decrease the bleeding and increased clotting in the area. We then placed vancomycin powder deep to the fascia. Fascia was then closed with #1 Vicryl in simple fashion followed by a running unidirectional strata fix for a watertight closure. Cellerate Guzman and placed in the subcu tissue subcu was closed in a layered fashion with 0 Vicryl 2-0 Vicryl followed by 2-0 nylon in the skin. The wound was then cleaned and dressed sterilely with Cellerate gel followed by Telfa 4 x 4's and Tegaderms. The patient was transferred back to his hospital bed atraumatically. Patient was then awakened and extubated by the department of anesthesia having tolerated the procedure very well with no complications. He was transferred to the postoperative care unit in stable condition.
[2020-12-11] MEDS: 0.9% NACL WITH KCL 20 MEQ/L 1,000 ML IV SCH (03:41)
[2020-12-11] MEDS: ACETAMINOPHEN IV (For NPO) 1,000 MG in EMPTY BAG 1 BAG IVPB SCH ×2 (03:41→08:31)
[2020-12-11 04:03] LABS: Basophils % (A) 0 %; Eosinophils # (A) 0.1 k/uL (0-0.7); Eosinophils % (A) 1 %; HCT 37.8 % (39.0-53.0); Lymphocytes # (A) 1.4 k/uL (1.0-4.8); Lymphocytes % (A) 12 %; MCH 30.7 pg (25.0-35.0); MCHC 34.4 g/dL (31.0-37.0); MCV 89.4 fL (80.0-100.0); Mean Platelet Volume 7.2; Monocytes # (A) 0.9 k/uL (0-1.0); Monocytes % (A) 7 %; Neutrophils # (A) 9.6 k/uL (1.3-7.7); Neutrophils % (A) 79 %; Platelet Count 252 k/uL (150-450); RBC 4.23 m/uL (4.30-5.90); RDW 12.7 % (11.5-15.5); WBC 12.1 k/uL (3.8-10.6)
[2020-12-11 05:08] VITALS: BP 121/62; PULSE 73; RESP 18; TEMP 98.5
[2020-12-11] MEDS: KETOROLAC 15 MG/ML 1 ML VIAL IVP SCH (05:58)
[2020-12-11] MEDS ORDERED: METOPROLOL SUCCINATE (ER) 100 MG TAB.ER.24H PO SCH (09:00)
[2020-12-11] MEDS ORDERED: LOSARTAN 50 MG TAB PO SCH (09:00)
[2020-12-11] MEDS ORDERED: buPROPion XL 300 MG TAB.ER.24H PO SCH (09:00)
[2020-12-11] MEDS ORDERED: NICOTINE 14MG/24HR PATCH TRANSDERM SCH (09:00)
[2020-12-11] MEDS ORDERED: amLODIPine 5 MG TAB PO SCH (09:00)
[2020-12-11] MEDS ORDERED: PANTOPRAZOLE 40 MG/10 ML VIAL IVP SCH (09:00)
[2020-12-11] MEDS ORDERED: FENOFIBRATE 160 MG TAB PO SCH (09:00)
--- NOTE | 2020-12-11 09:27 | P.PN ---
Subjective Progress Note Date: 12/11/20 Principal diagnosis: Status post L4-5 bilateral laminotomy, medial facetectomy and foraminotomy, L5- S1 bilateral laminotomy, medial facetectomy and foraminotomy, L4-5 coflex inter spinous spacer placement Patient was examined today at bedside, he is resting comfortably in his hospital chair. She's been ambulating well with no difficulty. Having no bowel or bladder issues at this time. He states the pain is controlled currently. Patient denies any headaches, lightheadedness, chest pain or shortness of breath. Patient is eager to go home today. Patient does have a caregiver that will be around 3-4 days a week, he also has a friend that will be stopped again to visit him. Objective - Vital Signs Vital signs: Vital Signs Temp 98.5 F 12/11/20 05:00 Pulse 73 12/11/20 05:00 Resp 18 12/11/20 05:00 BP 121/62 12/11/20 05:00 Pulse Ox 97 12/11/20 05:00 Intake & Output 12/10/20 12/11/20 12/11/20 18:59 06:59 18:59 Intake Total 2400 Output Total 580 Balance 1820 Weight 101 kg Intake: IV 2250 Intake, IV Titration 150 Amount 0.9% NaCl with KCl 20 Meq 150 /l 1,000 ml @ 75 mls/hr IV .[id number] [facility] Rx#: [id number] Output: Urine 380 Estimated Blood Loss 200 Other: Voiding Method Toilet Toilet Urinal Urinal # Voids 3 - Exam Gen: AOx3, NAD VSS stable at this time Integument: Postoperative bandages regular position and condition, no obvious drainage. There is no obvious fluctuance appreciated with palpation of the midline and paraspinal regions in the lumbar spine Palpation: Mild tenderness with palpation of the paraspinal lumbar region ROM: Full range of motion in all major muscle groups of the bilateral upper and lower extremities Sensory Exam: Senory exam to light touch is intact C5-T1 Senosry exam to light touch is intact L2-S1 Reflexes: 2/4 in all UE and LE Negative Nuris's bilaterally Negative Babinski bilaterally Negative clonus bilaterally - Labs CBC & Chem 7: 12/11/20 03:27 Labs: Abnormal Lab Results - Last 24 Hours (Table) 12/10/20 12/11/20 Range/Units 11:59 03:27 WBC 12.1 H (3.8-10.6) k/uL RBC 4.23 L (4.30-5.90) m/uL Hct 37.8 L (39.0-53.0) % Neutrophils # 9.6 H (1.3-7.7) k/uL POC Glucose (mg/dL) 187 H (75-99) mg/dL Assessment and Plan Assessment: Postop day 1 status post: 1. L4-5 bilateral laminotomy, medial facetectomy and foraminotomy 2. L5-S1 bilateral laminotomy, medial facetectomy and foraminotomy 3. L4-5 coflex interspinous spacer placement Plan: Pain control, plan for discharge home on oral medication Wound care instructions were discussed with patient Activity level and restrictions were discussed with patient Other medical billing assistant and recommendations Plan for discharge home today Time with Patient: Less than 30
--- NOTE | 2020-12-11 09:38 | P.DS ---
Providers Date of admission: 12/10/20 06:11 Expected date of discharge: 12/11/20 Attending physician: Hermes Hicks DO Consults: 12/10/20 07:04 Consult Physician Routine Consulting Provider: Christoph Cheng Reason/Comments: medical management Do you want consulting provider notified?: Yes Primary care physician: Debra Rutledge Hospital Course: Date of admission: 12/10/2000 Date of discharge: 12/11/2020 Admission diagnosis: 1. L4-S1 stenosis 2. 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 L4-5 stenosis Discharge diagnosis: Same Attending physician: Dr. Hicks Surgical procedures: 1. L4-5 bilateral laminotomy, medial facetectomy and foraminotomy 2. L5-S1 bilateral laminotomy, medial facetectomy and foraminotomy 3. L4-5 coflex interspinous spacer placement Brief history: Patient is a 65-year-old male with a history of progressive low back pain with radicular symptoms. At this point patient has failed conservative treatment measures and has opted to proceed with a elective L4 to S1 decompression with Coflex interspinous spacer placement. Hospital course: Details of patient's surgery can be found in operative report. Patient tolerated the procedure well and was subsequently transported to orthopedic floor. Patient's orthopeidc and medical care was provided daily. Patient had daily laboratory tests performed for evaluation of overall blood counts. Patient had daily physical therapy to include strengthening range of motion as well as education with walker ambulation. Patient was noted to have a relatively uneventful postoperative course. Patient reported satisfactory pain control with oral pain medications by postoperative day 0. Patient showed satisfactory progress with physical therapy. Patient moved steadily through the program and had no difficulty meeting the goals by postoperative day 1. Given patient's otherwise satisfactory course and having met physical therapy goals, plan is to discharge patient home on postoperative day 1. Discharge condition/disposition: Patient will be discharged home in stable condition. Discharge medications: See discharge medication list Spine Discharge and Recovery Instructions All medication refills should be obtained through your primary care doctor or your clinic spine surgeon. Please discuss prescription refills at your follow up appointment. Do not call the hospital for medication refills. Dressing: Leave your dressing in place for a total of 5 days post operatively. Then you may remove your dressing and leave open to air. Keep the area clean and if not able to keep area clean, then cover with sterile gauze and tape. Showering: You may shower 3 days after your procedure allowing soap and water to run over incision. Do not scrub. Do not soak. Blot dry. Follow up: Please confirm a follow up appointment with your surgeon 3 weeks post operatively. Please make an appointment to follow up with your PCP in 1-2 weeks after surger y for evaluation 3 phase, 3-week plan POST OP WEEKS 1-3 1. Lifting/carrying/pushing/pulling limited to less than 5 pounds. 2. Do not sit for longer than 15 minutes at one time. Get up and walk around. Prolonged sitting is NOT advised. If you lay down, see if you can tolerate laying down on you front (belly side) 3. Walk for periods of 15 minutes = 1 mile but no longer; do it multiple times times each day. 4. Ice your low back after activity. POST OP WEEKS 3-6 1. Lifting limited to less than 20 pounds. 2. Do not sit for longer than 30 minutes at a time. Frequently change positions. Use a sit-to stand workstation or take frequent breaks from sitting if you have returned to work. 3. Walk for 30 minutes each day. If possible, do these three or more times a day POST OP WEEKS 6+ At your 6-week appointment we will give you a physical therapy referral to focus on a core stabilization and strengthening program. You should also work on leg & buttock strengthening, hamstring & quadriceps stretching, and continue a low impact aerobic activity program such as swimming, walking, or riding a [facility] bicycle. During the initial 6 weeks after your surgery, you are at the highest risk of re-injuring your spine. You should generally avoid BLTs (bending, lifting and twisting combination motions) and follow the above guidelines to reduce the chance of reinjury. You can anticipate post op appointments in our office at approximately 3 weeks and 6 weeks after your surgery. INCISION CARE: If your incision is not draining you do NOT need to cover it with a dressing. Keep your incision clean, dry and intact. In most cases, we apply skin glue, molly or sutures to the incision at the time of surgery. This will be like a crust or have the appearance of a scab and will fall off in time on its own. The stitches or molly need to be removed at 3 weeks post op appointment. You may begin to shower 3 days after surgery (this allows the glue to hatch well). However, please avoid scrubbing the incision site or peeling off any of the skin glue. This will ensure optimal healing of your incision. Also, during this time avoid soaking the incision area in water - this includes swimming pools, hot tubs or baths. No ointments, lotions or oils on the incision until your surgeon allows. Leave molly, sutures or glue in place. Neurological dysfunction that comes on suddenly can also be a sign of a stroke. Below some common symptoms of a stroke are listed: B - balance difficulty such as sudden onset walking or leaning to one side - NEW E - eye problem such as sudden double vision or trouble seeing on one side - NEW F - Facial weakness or numbness on one side - NEW A - Arm or leg weakness or numbness on one side - NEW S - Slurred speech or difficulty with word finding - NEW T - Time is BRAIN! Call 911 as soon as you recognize these symptoms Diet: Consume a regular diet rich in vegetables and lean protein such as chicken or fish. You should consume in a ratio of approximately 20% fats|40% c arbohydrates|40%protein. Vegetables, sweet potatoes, brown rice or quinoa are examples of good carbohydrates. Chips, white bread, cookies and sweets/sugar are examples of bad carbohydrates. Limit your bad carbs, go wild with good carbs. "Life's Simple 7" Guidelines as per [place] [employer] These will help you reclaim your life after surgery and filter tank tender helper in your recovery, keeping in mind your restrictions. (1) Get Active. Physical activity can help people lose weight, control high blood pressure and cholesterol, feel emotionally better, and sleep better. (2) Control Cholesterol. Avoid a diet high in saturated fat, trans fat, & cholesterol. Limit whole milk & cream, ice cream, butter, egg yolks, processed meats (like sausage and hot dogs), and fatty meats. Choose healthy foods that are low in saturated fat, trans fat and cholesterol which include: Fruits and vegetables, fiber rich grain products (like whole grain pasta and brown rice), lean meat such as chicken, fish, nuts, seeds, and legumes. (3) Eat Better. Eat small portions. Shop at the grocery with a list and do not stray from it. Tips for a healthy diet include: Limit sodium intake to less than 1500mg daily, avoid prepackaged, processed, and fast foods, choose a diet rich in fruits, vegetables, and whole grain, high fiber foods, and limit saturated & cholesterol in your diet. (4) Manage Blood Pressure. If you have high blood pressure, you should have a cuff at home so that you can check your blood pressure regularly. Be sure you have a good cuff. An arm one is generally better than a wrist one. Bring the cuff to a doctor's appointment to validate that the measurements that your cuff are taking are accurate. Take your blood pressure twice daily when you are sit ting down and relaxing. Record the numbers in a log and bring this log with you to your doctors' appointments. (5) Lose Weight if your BMI is above 25. A healthy BMI is between 19-25. To calculate Your BMI, you may use a Standard BMI Calculator on the NIH BMI website: <www.nhlbi.nih.gov/guidelines/obesity/BMI/bmicalc.htm>. Weigh oneself daily. If you are overweight, set a goal to lose weight. A pound a week loss if needed is a good target. (6) Reduce Blood Sugar. Limit foods and liquids with "added sugars." (Added sugars include sucrose, fructose, glucose, maltose, dextrose, high fructose corn syrup, corn syrup, concentrated fruit juice and honey). (7) Stop Smoking. If you smoke, quitting smoking is one of the best things that you can do for your health. Smoking increases your risk of heart attack, stroke, and peripheral vascular disease, which is a build-up of plaque in your arteries. Please discard all the cigarettes and lighters in your house. Have a plan for what you will do when you have the urge to smoke. Direct and second- hand smoke shortens your life as well as the lives of your family, friends and others around you. For your health and the health of those around you, please consider quitting! Proper Bending Body Mechanics: Maintain a wide stance with one foot slightly in front of the other. Keep your back straight. Bend utilizing the strength in your hips and knees. Do not bend at the waist. Maintain the lifted object at your waist-level close to your body. Avoid lifting weight that causes immediately pain or pain anywhere in the body afterwards. Smoking/Nicotine If there was ever one thing that you could do to increase your overall health, decrease your risk of cardiovascular problems by about 39% the second you make the choice, it is to STOP SMOKING. Your body's most instant gratification is the second you stop smoking. We have all heard the studies, read the articles but it is true, smoking is extremely bad for your overall health, and moreover it is detrimental to your bone health. Nicotine, IN ANY FORM, kills bone cells, prevents your body from healing fractures, and significantly prolongs healing after surgery. In spine surgery specifically, it increases your risk of not healing your bones to create a fusion and increases your risk of having a revision surgery due to this up to 60%. I know it is hard. I know it feels impossible. But there are ways. Take control of your life. We are here to help you through it. And when you are jose a dy, ask us and we can direct you to help if you desire. Use the START Plan to Quit Smoking (please visit the [employer] and [employer] website listed below for more information): S = Set a quit date. Choose a date within the next 2 weeks, so you have enough time to prepare without losing your motivation to quit. If you mainly smoke at work, quit on the weekend, so you have a few days to adjust to the change. T = Tell family, friends, and co-workers that you plan to quit. Let your friends and family in on your plan to quit smoking and tell them you need their support and encouragement to stop. Look for a quit edgar who wants to stop smoking as well. You can help each other get through the rough times. A = Anticipate and plan for the challenges you'll face while quitting. Most people who begin smoking again do so within the first 3 months. You can help yourself make it through by preparing ahead for common challenges, such as nicotine withdrawal and cigarette cravings. R = Remove cigarettes and other tobacco products from your home, car, and work. Throw away all your cigarettes (no emergency pack!), lighters, ashtrays, and matches. Wash your clothes and freshen up anything that smells like smoke. Shampoo your car, clean your drapes and carpet, and steam your furniture. T = Talk to your doctor about getting help to quit. Your doctor can prescribe medication to help with withdrawal and suggest other alternatives. If you can't see a doctor, you can get many products over the counter at your local pharmacy or grocery store, including the nicotine patch, nicotine lozenges, and nicotine gum. Resources for Quitting Smoking: <https://www.[place].gov/documents/[facility]/Quit_Tobacco_Resources_for_patients_313 480_7.pdf> Supplementation: Take recommended dosages of Vitamin D and Calcium to help fortify your bones and help them to heal. See your health maintenance packet for dosages and recommended levels. DVT/VTE prophylaxis: You will be given compression stockings from the hospital. Wear these daily for the first two weeks after surgery. You may take them off at night. You may be prescribed a medication to help thin your blood. Take this as directed. If you are not prescribed this medication, early and frequent ambulation has been shown to be the best prophylaxis to deep vein thrombosis and sequelae related to this event. Procedures: 1. L4-5 bilateral laminotomy, medial facetectomy and foraminotomy 2. L5-S1 bilateral laminotomy, medial facetectomy and foraminotomy 3. L4-5 coflex interspinous spacer placement Patient Condition at Discharge: Good Plan - Discharge Summary Discharge Rx Participant: Yes New Discharge Prescriptions: New Cyclobenzaprine [Flexeril] 10 mg PO TID #90 tab Sennosides/Docusate Sodium [Senna Plus 8.6-50 mg Softgel] 1 each PO BID PRN #30 capsule PRN Reason: Constipation cefaDROXiL [Duricef] 1 gm PO DAILY #5 tablet Gabapentin 800 mg PO BID 3 Days #6 tab oxyCODONE HCL/ACETAMINOPHEN [Percocet 10-325 mg] 1 tab PO Q4HR PRN 7 Days #56 tab PRN Reason: Pain No Action rOPINIRole HCL [Requip] 0.5 mg PO DAILY oxyCODONE-APAP 10-325MG [Percocet 10-325 mg] 1 tab PO QID Gabapentin 800 mg PO TID #90 tab Losartan Potassium 100 mg PO DAILY Metoprolol Succinate [Toprol XL] 100 mg PO DAILY Fenofibrate Nanocrystallized [Fenofibrate] 145 mg PO DAILY buPROPion HCL [Wellbutrin XL] 300 mg PO DAILY rOPINIRole HCL [Requip] 1 mg PO HS amLODIPine [Norvasc] 5 mg PO DAILY Insulin Glargine,Hum.rec.anlog [Basaglar Kwikpen U-100] 36 unit SQ HS Dulaglutide [Trulicity] 1.5 mg SQ [place] Discharge Medication List rOPINIRole HCL [Requip] 0.5 mg PO DAILY 12/17/13 [History] oxyCODONE-APAP 10-325MG [Percocet 10-325 mg] 1 tab PO QID 04/27/14 [History] Fenofibrate Nanocrystallized [Fenofibrate] 145 mg PO DAILY 08/01/16 [History] Gabapentin 800 mg PO TID #90 tab 08/01/16 [Rx] Losartan Potassium 100 mg PO DAILY 08/01/16 [History] Metoprolol Succinate [Toprol XL] 100 mg PO DAILY 08/01/16 [History] Dulaglutide [Trulicity] 1.5 mg SQ [place]IS 08/13/20 [History] Insulin Glargine,Hum.rec.anlog [Basaglar Kwikpen U-100] 36 unit SQ HS 08/13/20 [History] amLODIPine [Norvasc] 5 mg PO DAILY 08/13/20 [History] buPROPion HCL [Wellbutrin XL] 300 mg PO DAILY 08/13/20 [History] rOPINIRole HCL [Requip] 1 mg PO HS 08/13/20 [History] Cyclobenzaprine [Flexeril] 10 mg PO TID #90 tab 12/11/20 [Rx] Gabapentin 800 mg PO BID 3 Days #6 tab 12/11/20 [Rx] Sennosides/Docusate Sodium [Senna Plus 8.6-50 mg Softgel] 1 each PO BID PRN #30 capsule 12/11/20 [Rx] cefaDROXiL [Duricef] 1 gm PO DAILY #5 tablet 12/11/20 [Rx] oxyCODONE HCL/ACETAMINOPHEN [Percocet 10-325 mg] 1 tab PO Q4HR PRN 7 Days #56 tab 12/11/20 [Rx] Follow up Appointment(s)/Referral(s): Hermes Hicks DO [Doctor of Osteopathic Medicine] - 2 Weeks Debra Rutledge DO [Primary Care Provider] - 1 Week Activity/Diet/Wound Care/Special Instructions: Spine Discharge and Recovery Instructions Date of Surgery: 12/10/2020 Diagnosis: L4-S1 stenosis Procedure: L4 to S1 decompression with L4 5 complex placement Medications: List All medication refills should be obtained through your primary care doctor or your clinic spine surgeon. Please discuss prescription refills at your follow up appointment. Do not call the hospital for medication refills. Dressing: Leave your dressing in place for a total of 3 days post operatively. Then you may remove your dressing and leave open to air. Keep the area clean and if not able to keep area clean, then cover with sterile gauze and tape. Showering: You may shower 3 days after your procedure allowing soap and water to run over incision. Do not scrub. Do not soak. Blot dry. Follow up: Please confirm a follow up appointment with your surgeon 2 weeks post operatively. Please make an appointment to follow up with your PCP in 1-2 weeks after surgery for evaluation 3 phase, 3-week plan POST OP WEEKS 1-3 1. Lifting/carrying/pushing/pulling limited to less than 5 pounds. 2. Do not sit for longer than 15 minutes at one time. Get up and walk around. Prolonged sitting is NOT advised. If you lay down, see if you can tolerate laying down on you front (belly side) 3. Walk for periods of 15 minutes = 1 mile but no longer; do it multiple times times each day. 4.Ice your low back after activity. POST OP WEEKS 3-6 1. Lifting limited to less than 20 pounds. 2. Do not sit for longer than 30 minutes at a time. Frequently change positions. Use a sit-to stand workstation or take frequent breaks from sitting if you have returned to work. 3. Walk for 30 minutes each day. If possible, do these three or more times a day POST OP WEEKS 6+ At your 6-week appointment we will give you a physical therapy referral to focus on a core stabilization and strengthening program. You should also work on leg & buttock strengthening, hamstring & quadriceps stretching, and continue a low impact aerobic activity program such as swimming, walking, or riding a stationary bicycle. During the initial 6 weeks after your surgery, you are at the highest risk of re-injuring your spine. You should generally avoid BLTs (bending, lifting and twisting combination motions) and follow the above guidelines to reduce the chance of reinjury. You can anticipate post op appointments in our office at approximately 3 weeks and 6 weeks after your surgery. INCISION CARE: If your incision is not draining you do NOT need to cover it with a dressing. Keep your incision clean, dry and intact. In most cases, we apply skin glue, molly or sutures to the incision at the time of surgery. This will be like a crust or have the appearance of a scab and will fall off in time on its own. The stitches or molly need to be removed at 3 weeks post op appointment. You may begin to shower 3 days after surgery (this allows the glue to hatch well). However, please avoid scrubbing the incision site or peeling off any of the skin glue. This will ensure optimal healing of your incision. Also, during this time avoid soaking the incision area in water - this includes swimming pools, hot tubs or baths. No ointments, lotions or oils on the incision until your surgeon allows. Leave molly, sutures or glue in place. Neurological dysfunction that comes on suddenly can also be a sign of a stroke. Below some common symptoms of a stroke are listed: B - balance difficulty such as sudden onset walking or leaning to one side - NEW E - eye problem such as sudden double vision or trouble seeing on one side - NEW F - Facial weakness or numbness on one side - NEW A - Arm or leg weakness or numbness on one side - NEW S - Slurred speech or difficulty with word finding - NEW T - Time is BRAIN! Call 911 as soon as you recognize these symptoms Diet: Consume a regular diet rich in vegetables and lean protein such as chicken or fish. You should consume in a ratio of approximately 20% fats|40% carbohydrates|40%protein. Vegetables, sweet potatoes, brown rice or quinoa are examples of good carbohydrates. Chips, white bread, cookies and sweets/sugar are examples of bad carbohydrates. Limit your bad carbs, go wild with good carbs. "Life's Simple 7" Guidelines as per [place] [employer] These will help you reclaim your life after surgery and filter tank tender helper in your recovery, keeping in mind your restrictions. (1) Get Active. Physical activity can help people lose weight, control high blood pressure and cholesterol, feel emotionally better, and sleep better. (2) Control Cholesterol. Avoid a diet high in saturated fat, trans fat, & cholesterol. Limit whole milk & cream, ice cream, butter, egg yolks, processed meats (like sausage and hot dogs), and fatty meats. Choose healthy foods that are low in saturated fat, trans fat and cholesterol which include: Fruits and vegetables, fiber rich grain products (like whole grain pasta and brown rice), lean meat such as chicken, fish, nuts, seeds, and legumes. (3) Eat Better. Eat small portions. Shop at the grocery with a list and do not stray from it. Tips for a healthy diet include: Limit sodium intake to less than 1500mg daily, avoid prepackaged, processed, and fast foods, choose a diet rich in fruits, vegetables, and whole grain, high fiber foods, and limit saturated & cholesterol in your diet. (4) Manage Blood Pressure. If you have high blood pressure, you should have a cuff at home so that you can check your blood pressure regularly. Be sure you have a good cuff. An arm one is generally better than a wrist one. Bring the cuff to a doctor's appointment to validate that the measurements that your cuff are taking are accurate. Take your blood pressure twice daily when you are sitting down and relaxing. Record the numbers in a log and bring this log with you to your doctors' appointments. (5) Lose Weight if your BMI is above 25. A healthy BMI is between 19-25. To calculate Your BMI, you may use a Standard BMI Calculator on the NIH BMI website: <www.nhlbi.nih.gov/guidelines/obesity/BMI/bmicalc.htm>. Weigh oneself daily. If you are overweight, set a goal to lose weight. A pound a week loss if needed is a good target. (6) Reduce Blood Sugar. Limit foods and liquids with "added sugars." (Added sugars include sucrose, fructose, glucose, maltose, dextrose, high fructose corn syrup, corn syrup, concentrated fruit juice and honey). (7) Stop Smoking. If you smoke, quitting smoking is one of the best things that you can do for your health. Smoking increases your risk of heart attack, stroke, and peripheral vascular disease, which is a build-up of plaque in your arteries. Please discard all the cigarettes and lighters in your house. Have a plan for what you will do when you have the urge to smoke. Direct and second- hand smoke shortens your life as well as the lives of your family, friends and others around you. For your health and the health of those around you, please consider quitting! Proper Bending Body Mechanics: Maintain a wide stance with one foot slightly in front of the other. Keep your back straight. Bend utilizing the strength in your hips and knees. Do not bend at the waist. Maintain the lifted object at your waist-level close to your body. Avoid lifting weight that causes immediately pain or pain anywhere in the body afterwards. Smoking/Nicotine If there was ever one thing that you could do to increase your overall health, decrease your risk of cardiovascular problems by about 39% the second you make the choice, it is to STOP SMOKING. Your body's most instant gratification is the second you stop smoking. We have all heard the studies, read the articles but it is true, smoking is extremely bad for your overall health, and moreover it is detrimental to your bone health. Nicotine, IN ANY FORM, kills bone cells, prevents your body from healing fractures, and significantly prolongs healing after surgery. In spine surgery specifically, it increases your risk of not healing your bones to create a fusion and increases your risk of having a revision surgery due to this up to 60%. I know it is hard. I know it feels impossible. But there are ways. Take control of your life. We are here to help you through it. And when you are ready, ask us and we can direct you to help if you desire. Use the START Plan to Quit Smoking (please visit the Helpguide.org website listed below for more information): S = Set a quit date. Choose a date within the next 2 weeks, so you have enough time to prepare without losing your motivation to quit. If you mainly smoke at work, quit on the weekend, so you have a few days to adjust to the change. T = Tell family, friends, and co-workers that you plan to quit. Let your friends and family in on your plan to quit smoking and tell them you need their support and encouragement to stop. Look for a quit edgar who wants to stop smoking as well. You can help each other get through the rough times. A = Anticipate and plan for the challenges you'll face while quitting. Most people who begin smoking again do so within the first 3 months. You can help yourself make it through by preparing ahead for common challenges, such as nicotine withdrawal and cigarette cravings. R = Remove cigarettes and other tobacco products from your home, car, and work. Throw away all your cigarettes (no emergency pack!), lighters, ashtrays, and matches. Wash your clothes and freshen up anything that smells like smoke. Shampoo your car, clean your drapes and carpet, and steam your furniture. T = Talk to your doctor about getting help to quit. Your doctor can prescribe medication to help with withdrawal and suggest other alternatives. If you can't see a doctor, you can get many products over the counter at your local pharmacy or grocery store, including the nicotine patch, nicotine lozenges, and nicotine gum. Resources for Quitting Smoking: <htt ps://www.[place].gov/documents/[facility]/Quit_Tobacco_Resources_for_patients_313480_ 7.pdf> Supplementation: Take recommended dosages of Vitamin D and Calcium to help fortify your bones and help them to heal. See your health maintenance packet for dosages and recommended levels. DVT/VTE prophylaxis: You will be given compression stockings from the hospital. Wear these daily for the first two weeks after surgery. You may take them off at night. You may be prescribed a medication to help thin your blood. Take this as directed. If you are not prescribed this medication, early and frequent ambulation has been shown to be the best prophylaxis to deep vein thrombosis and sequelae related to this event. Discharge Disposition: HOME WITH HOME HEALTH SERVICES
[2020-12-11 10:54] LABS: African American GFR (CKD) 60.3 (60.0-200.0); Anion Gap 11.5 mmol/L (4.00-12.00); BUN/Creat Ratio 16.43 Ratio (12.00-20.00); Calcium 9.4 mg/dL (8.7-10.3); Carbon Dioxide 21.5 mmol/L (21.6-31.8)
[2020-12-11] MEDS ORDERED: INSULIN ASPART (NovoLOG) 100 UNIT/ML VIAL SQ SCH (12:30)
[2020-12-11] MEDS ORDERED: INSULIN DETEMIR (LEVEMIR) 100 UNIT/ML SYR SQ SCH (21:00)
[2020-12-15] MEDS ORDERED: NON FORMULARY DRUG (Dulaglutide [Trulicity] 1.5 MG/0.5 ML Pen.Injctr) SQ SCH (09:00)
== END 2020-12-11 12:43 | disposition home health service (06) | DRG 517 ==
LOC: 2ORMAIN 06:11 → 5NMEDONC 13:12
PROVIDERS: ADMIT Orthopaedic Surgery; ATTEND Orthopaedic Surgery
PROC: 01NR0ZZ Release Sacral Nerve, Open Approach (ICD-10-PCS; principal; 2020-12-10 07:30)
PROC: 01NB0ZZ Release Lumbar Nerve, Open Approach (ICD-10-PCS; principal; 2020-12-10 07:30)
PROC: 0SH008Z Insertion of Spacer into Lumbar Vertebral Joint, Open Approach (ICD-10-PCS; principal; 2020-12-10 07:30)
DX: M48.062 Spinal stenosis, lumbar region with neurogenic claudication (principal); M48.07 Spinal stenosis, lumbosacral region; M54.10 Radiculopathy, site unspecified; M85.68 Other cyst of bone, other site; E11.9 Type 2 diabetes mellitus without complications; M19.90 Unspecified osteoarthritis, unspecified site; F17.210 Nicotine dependence, cigarettes, uncomplicated; Z20.822 Contact with and (suspected) exposure to COVID-19; Z82.0 Family history of epilepsy and other diseases of the nervous system; Z81.8 Family history of other mental and behavioral disorders; I10 Essential (primary) hypertension; Z79.4 Long term (current) use of insulin; K59.00 Constipation, unspecified; Z79.899 Other long term (current) drug therapy
CPT/HCPCS: 72100; 80048; 85025; 86850; 86900; 86901; 87635; 88304

== ENCOUNTER 2020-12-26 21:29 | Inpatient (IN) | payer MEDICARE, OTHER ==
[2020-12-26] MEDS ORDERED: SODIUM CHLORIDE 0.9% 1,000 ML IV STA (21:40)
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
[2020-12-26] MEDS ORDERED: MORPHINE SULFATE 4 MG/ML SYRINGE IVP STA (22:53)
[2020-12-26] MEDS ORDERED: PANTOPRAZOLE 40 MG/10 ML VIAL IVP STA (23:03)
[2020-12-26] MEDS ORDERED: ONDANSETRON 4 MG/2 ML VIAL IVP PRN (23:03)
[2020-12-26] MEDS ORDERED: ONDANSETRON 4 MG/2 ML VIAL IVP STA (23:03)
--- NOTE | 2020-12-26 23:09 | XR ---
EXAMINATION TYPE: XR Hip Complete RT DATE OF EXAM: 12/26/2020 COMPARISON: NONE HISTORY: Fall. Pain TECHNIQUE: 2 views FINDINGS: There is an acute comminuted intertrochanteric fracture right femur. There is no dislocatio n. Acetabulum appears intact. IMPRESSION: Intertrochanteric fracture right femur.
--- NOTE | 2020-12-26 23:11 | XR ---
EXAMINATION TYPE: XR chest 1V DATE OF EXAM: 12/26/2020 COMPARISON: NONE HISTORY: Fall. Weakness. TECHNIQUE: 2 views FINDINGS: There is no heart failure nor confluent pneumonic infiltrate. Costophrenic angles are clear . There are chest leads. Mediastinum is normal. IMPRESSION: No active cardiopulmonary disease.
--- NOTE | 2020-12-26 23:15 | CT ---
EXAMINATION TYPE: CT brain joy wo con DATE OF EXAM: 12/26/2020 COMPARISON: None HISTORY: Pt fall CT DLP: 1570 mGycm Automated exposure control for dose reduction was used. There is slight prominence of the ventricles. There is no mass effect nor midline shift. There is no sign of intracranial hemorrhage. There is cerebral mild cortical atrophy. The calvarium is intact. Th ere is some mucosal thickening left frontal sinus. The skull base is intact. There is normal aeration of the mastoid sinuses. Cervical vertebra have normal alignment. There is large anterior bridging osteophyte formation from C 4 to T1. There is hypertrophic mild multilevel facet arthropathy. IMPRESSION: Multilevel cervical spondylotic changes. No fracture. Cerebral atrophy. No acute intracranial abnormality.
[2020-12-26 23:19] LABS: Basophils % (A) 0 %; Eosinophils # (A) 0.2 k/uL (0-0.7); Eosinophils % (A) 2 %; HCT 38.5 % (39.0-53.0); HGB 13.4 gm/dL (13.0-17.5); Lymphocytes # (A) 1.2 k/uL (1.0-4.8); Lymphocytes % (A) 9 %; MCH 31.2 pg (25.0-35.0); MCHC 34.8 g/dL (31.0-37.0); MCV 89.7 fL (80.0-100.0); Mean Platelet Volume 7.1; Monocytes # (A) 0.7 k/uL (0-1.0); Monocytes % (A) 5 %; Neutrophils # (A) 11.4 k/uL (1.3-7.7); Neutrophils % (A) 84 %; Platelet Count 415 k/uL (150-450); RBC 4.29 m/uL (4.30-5.90); RDW 12.2 % (11.5-15.5); WBC 13.6 k/uL (3.8-10.6)
[2020-12-26 23:29] LABS: Albumin 3.9 g/dL (3.5-5.0); Calcium 9.6 mg/dL (8.4-10.2); Magnesium 1.7 mg/dL (1.6-2.3); Phosphorus 3.3 mg/dL (2.5-4.5); Total Bilirubin 0.4 mg/dL (0.2-1.3); Total Protein 6.3 g/dL (6.3-8.2)
[2020-12-26 23:35] LABS: Appearance,Urine Clear (Clear); Bilirubin,Urine Negative (Negative); Blood,Urine Negative (Negative); Color,Urine Yellow; Glucose,Urine (UA) 4+ (Negative); Ketones,Urine Negative (Negative); Leukocyte Esterase,Urine Negative (Negative); Nitrite,Urine Negative (Negative); Protein,Urine Trace (Negative); Specific Gravity,Urine 1.017 (1.001-1.035); Urobilinogen,Urine <2.0 mg/dL (<2.0)
[2020-12-26 23:41] LABS: Prothrombin Time 10.4 sec (9.0-12.0)
[2020-12-27 00:03] LABS: Potassium 4.5 mmol/L (3.5-5.1)
--- NOTE | 2020-12-27 00:03 | XR ---
EXAMINATION TYPE: XR pelvis AP view DATE OF EXAM: 12/26/2020 COMPARISON: 12/22/2010 HISTORY: Pain TECHNIQUE: Single view FINDINGS: The pelvic ring is intact. There is comminuted intertrochanteric fracture of the right femu r. Hip joint spaces are fairly normal. Sacroiliac joints are intact. There is some vascular calcifica tion. IMPRESSION: Acute fracture right proximal femur. No pelvic fracture seen.
--- NOTE | 2020-12-27 00:05 | XR ---
EXAMINATION TYPE: XR femur RT DATE OF EXAM: 12/26/2020 COMPARISON: NONE HISTORY: Pain TECHNIQUE: 4 views FINDINGS: There is acute intertrochanteric fracture right femur with mild coxa vera deformity. There is no dislocation. The hip joint space is fairly normal. The distal femur is intact. There is no sign of knee joint effusion. IMPRESSION: Acute intertrochanteric fracture right femur.
[2020-12-27] MEDS: MORPHINE SULFATE 4 MG/ML SYRINGE IVP PRN ×4 (03:35→20:50)
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
[2020-12-27] MEDS: PANTOPRAZOLE 40 MG/10 ML VIAL IVP SCH (08:12)
--- NOTE | 2020-12-27 09:05 | XR ---
EXAM TYPE: LUMBAR SPINE X RAY SERIES COMPARISON: NONE HISTORY: Pain TECHNIQUE: 3 views are submitted. FINDINGS: Evidence of previous vertebroplasty. Stable appearing wedge deformity of L4. Diffuse osteopenia. Hype rtrophic and degenerative change of the spine with multilevel facet arthropathy. Metallic density pos terior to L4-L5 suggest previous surgery correlate clinically. IMPRESSION: 1. Diffuse osteopenia with multilevel hypertrophic and degenerative change. 2. Stable wedge deformity L4.
[2020-12-27] MEDS: GABAPENTIN 400 MG CAP PO SCH ×3 (10:10→20:50)
[2020-12-27] MEDS: amLODIPine 5 MG TAB PO SCH (10:10)
[2020-12-27] MEDS: METOPROLOL SUCCINATE (ER) 100 MG TAB.ER.24H PO SCH (10:10)
[2020-12-27] MEDS: LOSARTAN 50 MG TAB PO SCH (10:10)
[2020-12-27] MEDS: buPROPion XL 300 MG TAB.ER.24H PO SCH (10:11)
[2020-12-27 11:41] LABS: Glucose,Whole Blood 242 mg/dL (75-99)
[2020-12-27] MEDS: INSULIN ASPART (NovoLOG) 100 UNIT/ML VIAL SQ SCH ×3 (11:42→20:50)
[2020-12-27] MEDS ORDERED: LACTATED RINGERS 1,000 ML IV ONE ×3 (15:57→18:43)
[2020-12-27 16:02] LABS: Glucose,Whole Blood 195 mg/dL (75-99)
[2020-12-27] MEDS ORDERED: ONDANSETRON 4 MG/2 ML VIAL IVP ONE (16:27)
[2020-12-27] MEDS ORDERED: DEXAMETHASONE SOD PHOSPHATE 4 MG/ML 1 ML VIAL IVP ONE (16:27)
[2020-12-27] MEDS ORDERED: SUCCINYLCHOLINE CHLORIDE VIAL 200 MG/10 ML VIAL IV ONE (16:32)
[2020-12-27] MEDS ORDERED: KETAMINE 10 MG/ML 20 ML VIAL ONE (16:32)
[2020-12-27] MEDS ORDERED: ROCURONIUM 10 MG/ML (5 ML VIAL) IV ONE (16:32)
[2020-12-27] MEDS ORDERED: PROPOFOL 10 MG/ML 20 ML VIAL IV ONE (16:32)
[2020-12-27] MEDS ORDERED: fentaNYL (PF) 50 MCG/ML 2 ML AMP ONE (16:32)
[2020-12-27] MEDS ORDERED: LIDOCAINE 1% INJ 10MG/ML (20 ML MDV) ONE (16:32)
[2020-12-27] MEDS ORDERED: MIDAZOLAM 2 MG/2 ML VIAL ONE (16:32)
[2020-12-27] MEDS ORDERED: SODIUM CHLORIDE 0.9% 100 ML with ceFAZolin 2,000 MG IV ONE ×2 (16:38)
--- NOTE | 2020-12-27 16:43 | P.PN ---
Progress Note - Text Progress Note Date: 12/27/20 Orthopedic Surgery Risk Review Abdulaziz Serrano is a 65-year-old malepresenting for evaluation of sudden onset right hip pain, inability to ambulate after fall from standing at home It was my pleasure to have seen and examined Abdulaziz Serrano. In our visit today we have had a chance to go over subjective complaints, physical examination findings and treatments including the natural course history without intervention and various interventional options. hisimaging demonstrates right intertrochanteric hip fracture with subtrochanteric extension. On physical exam, Abdulaziz Serrano demonstrates pain with motion of right hip, which is NV intact at this time. I have explained to the patient that this fracture needs stabilization. Based on the patients imaging, physical exam, and the rapid progression and disabling n ature of her symptoms, at this time I recommend surgery in the form or a: right hip and intramedullary nail fixation I discussed the risk and benefits of this procedure at length with Abdulaziz Serrano. Questions were invited and answered, and the patient wishes to proceed as outlined below. Currently, I am recommendin. right hip intramedullary nail fixation 2. Review of surgical risks and benefits as well as an educational packet on the proposed surgical procedure. Risks: All surgical procedures come with inherent risks, including those related to positioning, anesthesia, intraoperative findings, and postoperative complications. It is important to understand that surgery does not come with any guarantee of a successful outcome as complications and adverse events are always possible. The patient was given a handout discussing the surgical procedure and risks associated with the intervention, both of which were discussed with the patient. These risks include but are not limited to the following: - Experiencing same, different or even worse symptoms compared to before surgery. - Requiring further surgery or other forms of treatment presently or at some time in the future . - On an extreme but fortunately relatively rare basis severe complication such as blindness, stroke, heart attack, temporary and/or permanent nerve injury, paralysis, coma, or may occur, sometimes without known explanation. - Surgical complications may include but are not limited to risk of infection, fluid accumulation in the surgical dissection site, including a seroma or hematoma, that requires additional surgery, wound drainage, bleeding, new numbness or weakness, vision changes/loss, spinal fluid leakage, non-healing and/or infected incision, headaches, difficulty or inability to swallow, hoarseness, hemopneumothorax, pneumothorax, injury to nerves, spinal cord, blood vessels, lymphatics or other vital organs (i.e., bowel injury, injury to the great vessels); heterotopic bone formation; complications related to the hardware such as screws, rods, including misplaced hardware, device failure, hardware fracture/breakage, or hardware loosening; retained surgical instrumentations or devices and the need for further surgery. - Medical risks of the planned surgery include but are not limited to generalized Infections to the whole body or local areas outside of the surgical site (sepsis), heart attack, bleeding, anaphylaxis, meningitis, seizure, epilepsy, hearing loss, burn brown, laceration of the head or other areas of the body, bruising, hypersensitivity of the skin, bladder over distension; allergic reaction; shoulder injury related to positioning; fat, blood and air clots to other areas of the body like heart, lungs, brain; failure of internal organs such as lungs, kidneys, liver and excessive bleeding. If blood transfusions are necessary, note that transfusions may cause intolerance reactions such as anaphylaxis or other complex reactions. Despite best efforts, the results of surgery might not heal in terms of bone, soft tissues such as skin, fascia, ligaments, and joints. [facility] is an educational center that serves as a training facility for physician assistants, nurses, orthopedic residents and fellows. Residents are physicians who are completing their surgical intensive training following medical school. They assist in the operating room with direct supervision of the attending surgeons. [employer] are surgeons who have completed their training and eligible for board certification. They have opted for an elective year of more specialized training in their field. They assist in the operating room under the supervision of the attending surgeons. Physician assistants are medically trained surgical providers who function in the outpatient, inpatient, and operating room setting under the direct supervision of the attending surgeon. [facility] has multiple operating rooms with single and overlapping rooms running daily. They currently function under the required guidelines as produced by the Senate Finance Committee with regards to the overlapping rooms and will continue to comply with changes to this policy as they occur. The requirements include and are complied with as follows: (1) the critical portions of the overlapping rooms will not occur at the same time, (2) the attending physician will be physically present during the critical portions of the pr ocedure and immediately available during the entire case, and (3) a back-up attending is designated should the primary attending not be immediately available. The patient has had a chance to review all the listed information, has been given print outs detailing this information, and has had all his/her questions answered to their satisfaction. It was my pleasure to have seen and examinedAbdulaziz Serrano. In our visit today we have had a chance to go over my understanding of our patient's current condition, the natural course history without intervention and various interventional options. Questions were invited and answered, and the patient wishes to proceed as outlined above. I have seen and examined the patient for 25 minutes and we have spent more than 50% of the time in repeat and detailed counseling about the patient's condition, its natural course history with out and as much as can be predicted with surgery and re-review of various surgical treatment options. In conclusion, Abdulaziz Serrano requested we proceed with the above suggested surgery and are willing to accept risks and limitations of the suggested surgery as nature of the disease process and our best attempts at treatment for the condition. Thank you again for allowing us to be part of your patient's care. Please don't hesitate to contact me if you have any further questions. Signed and authenticated by: Hermes Song [facility] [address] [place], [address] [address]
[2020-12-27] MEDS ORDERED: TRANEXAMIC ACID 1,000 MG/10 ML VIAL IRRIGATION ONE (16:45)
[2020-12-27] MEDS ORDERED: TRANEXAMIC ACID 1,000 MG in SODIUM CHLORIDE 0.9% 100 ML IVPB ONE (16:45)
[2020-12-27 19:00] LABS: Glucose,Whole Blood 205 mg/dL (75-99)
[2020-12-27] MEDS ORDERED: INSULIN ASPART (NovoLOG) 100 UNIT/ML VIAL SQ ONE (19:06)
--- NOTE | 2020-12-27 19:13 | P.OP ---
Date of Procedure: 12/27/20 Preoperative Diagnosis: 1. Right IT fracture, 3 part, displaced, comminuted, closed 2. s/p L4-5 decompression with coflex placement 3. s/p ffs Postoperative Diagnosis: 1. Right IT fracture, 3 part, displaced, comminuted, closed 2. s/p L4-5 decompression with coflex placement 3. s/p ffs Procedure(s) Performed: 1. Closed reduction with IM nail fixation right hip Implants: [employer] intertan nail 46 x 11.5 130 deg with 120 mm lag screw 115 mm compression screw and 42.5 distal locking screw Anesthesia: GETA Surgeon: Hermes Hicks Tube Man #1: Cleve Salmon (Was present for the entire case and was necessary due to the complexity of the case. ) Estimated Blood Loss (ml): 100 IV fluids (ml): 500 Urine output (ml): 200 Pathology: none sent Condition: stable Disposition: PACU Indications for Procedure: 65 yo male sustained a ffs at home. He had been doing very well after his lumbar decompression and follow up in office stating he was doing well but having some weakness after surgery that was not unexpected. He was otherwise strong and was getting up to go outside when he tripped and fell onto his right hip. He had immediate pain and inability to abulate and was brought to ED via EMS. Found to have IT fracture on the R. We discussed surgery and he agreed. We discussed all the risks and benefits of surgery including but not limited to bleeding, infection, damage to surrounding tissues, weakness, risk of anesthesia up to and including , he was willing to assume these risks and all the risks of surgery. He was willing to proceed. Description of Procedure: The patient was seen and examined in the preoperative area. All preoperative protocols were followed. Informed consent was obtained risks and benefits of the procedure were discussed at length. Risks including bleeding infection damage to the surrounding tissue and risk of reoperation were discussed with the patient. Risk of anesthesia up to and including was a discussed with the patient. These are outlined in the risk reviewed. They were willing to accept these risks and all of the risks of surgery. The patient was given a weight-bas ed dose of antibiotics in the form of 2 g Ancef IVPB. The patient was seen and evaluated by the anesthesia team who deemed them fit for surgery. The site was marked, the patient was willing to proceed with the procedure. The patient was transferred to the operative suite by the Department of anesthesia. There were then drifted off to sleep by the department of anesthesia and GETA anesthesia was used. Once adequate anesthesia had been obtained the patient was carefully transferred to the operative bed. All bony prominences were padded accordingly. SCDs were placed on the nonoperative lower extremities. Arms were well padded. once on the hand table is placed in a boot on the right-hand side in a well leg white on the left-hand side right leg was well-padded and exposed was then reduced on the Dori table x-rays were taken ensured and showed good reduction T fracture in the AP and lateral planes Preoperative briefing was done with the operative team and everyone was ready fo r the procedure to start. The patientsright leg was then prepped and draped in the normal sterile fashion. Timeout was then performed and all parties in agreement with the procedure to be performed. then marked to make appointment made an incision to centers proximally greater trochanter tip within traveled down to the fascia with blunt dissection until the tip was palpated within place a guidewire in the tip of the greater trochanter which was placed in AP and lateral in good position to allow for access to the canal as well as the femoral neck discovered wire was then placed opening reamer was placed over this under fluoroscopic guidance we then placed a ball-tipped guidewire through this hole down to the tip of the patella under fluoroscopic guidance in AP and lateral were then measured for a nail it measured 48 and so we placed a 46 11 x 11.5 nail we did ream to 13 sequentially starting at 9 by ones I which allowed for easy fit of the nail. Once we reaming was completed we placed the nail under fluoroscopic guidance this was then tapped into place once in good position the guide for the lag screw was placed on the lateral portion of the leg incision was made over the lateral portion leg in line with this taken down through the tensor fascia to bone which we then seated the jig against bone pin was then placed and measured 120 mm screw was selected we ensured that the pin was within 10 mm of the subchondral bone on AP and lateral fluoroscopy and that we are center center in the head and neck we then overdrilled this pin. We then drilled for the compression screw and the second slot under AP and lateral fluoroscopy and then placed the spatula to hold it in position we then placed to the leg screw over the wire and secured this in the position it was in good position on AP and lateral fluoroscopy and had good bite. We then removed the spatula and placed the compression screw under AP and lateral fluoroscopy the set and good position. This also had good bite. We then confirmed our positions on AP and lateral fluoroscopy and we are in good position. We then removed the jig for the lateral aspect and removed the outrigger getting jig. Then turned our attention to the distal hole were reperformed perfect circles to allow to drill in this area skin knife was used to incise down to the fascia a stat was used to clear the bone and we then drilled under perfect circles in the lateral guidance through the nail we then took an AP and measured for the screw length of the screw was selected and placed under AP and lateral fluoroscopy and had good bite within took our final shots to confirm good placement of the nail as well as reduction of the fracture maintained. We then copiously irrigated the wounds with normal sterile saline fascia was closed with 0 Vicryl in a simple fashion subcu was closed 2-0 Vicryl followed by molly within the skin the wound was then cleaned and dressed sterilely with sterile Adaptic 4 x 4's ABDs and tape. The patient was then transferred back to their hospital bed. There were awakened by department of anesthesia having tolerated the procedure very well with no complications. The patient was then transported to the postoperative care unit in stable condition.
[2020-12-27] MEDS ORDERED: SODIUM CHLORIDE 0.9% 1,000 ML IV ONE (19:24)
--- NOTE | 2020-12-27 19:36 | XR ---
EXAMINATION TYPE: XR femur RT DATE OF EXAM: 12/27/2020 COMPARISON: Yesterday HISTORY: Hip surgery TECHNIQUE: 7 views FINDINGS: Multiple fluoroscopic images were obtained at show placement of intramedullary kale and schaffer sverse screw fixing the intertrochanteric fracture of the right femur. Components appear in anatomic position. IMPRESSION: No complicating process seen.
--- NOTE | 2020-12-27 20:42 | XR ---
EXAMINATION TYPE: XR Hip RT and AP Pelvis DATE OF EXAM: 12/27/2020 COMPARISON: Yesterday HISTORY: Postop TECHNIQUE: 4 views FINDINGS: There is intramedullary kale and transverse screw fixing the intertrochanteric fracture of t he right femur in anatomic position. Pelvic ring is intact. IMPRESSION: No complicating process seen.
--- NOTE | 2020-12-27 20:43 | XR ---
EXAMINATION TYPE: XR femur RT DATE OF EXAM: 12/27/2020 COMPARISON: NONE HISTORY: Postop femur TECHNIQUE: 4 views FINDINGS: There is intramedullary kale in the femur. There is transverse screw fixing the intertrochan teric fracture in anatomic position. The knee joint appears anatomic. There is some narrowing of the knee joint spaces. IMPRESSION: Satisfactory reduction. No complicating process seen.
[2020-12-27 20:44] LABS: Glucose,Whole Blood 237 mg/dL (75-99)
[2020-12-27] MEDS ORDERED: INSULIN DETEMIR (LEVEMIR) 100 UNIT/ML SYR SQ SCH (21:00)
[2020-12-28] MEDS: MORPHINE SULFATE 4 MG/ML SYRINGE IVP PRN ×2 (05:45→20:07)
[2020-12-28 07:11] LABS: Glucose,Whole Blood 229 mg/dL (75-99)
[2020-12-28] MEDS: amLODIPine 5 MG TAB PO SCH (07:39)
[2020-12-28] MEDS: GABAPENTIN 400 MG CAP PO SCH ×3 (07:39→20:06)
[2020-12-28] MEDS: PANTOPRAZOLE 40 MG/10 ML VIAL IVP SCH (07:39)
[2020-12-28] MEDS: METOPROLOL SUCCINATE (ER) 100 MG TAB.ER.24H PO SCH (07:39)
[2020-12-28] MEDS: buPROPion XL 300 MG TAB.ER.24H PO SCH (07:40)
[2020-12-28] MEDS: LOSARTAN 50 MG TAB PO SCH (07:40)
[2020-12-28] MEDS: INSULIN ASPART (NovoLOG) 100 UNIT/ML VIAL SQ SCH ×4 (07:40→21:15)
[2020-12-28] MEDS: oxyCODONE-APAP 10-325MG 1 EACH TAB PO PRN ×2 (07:46→15:44)
--- NOTE | 2020-12-28 07:51 | P.PN ---
Subjective Progress Note Date: 12/28/20 Principal diagnosis: Status post intramedullary nailing right intertrochanteric femur fracture Patient evaluated at bedside, resting comfortably. Pain is little bit worse today., We will restart his home oral pain medication. He has been up ambulating at this time. He denies any headaches, lightheadedness, chest pain or shortness of breath. Objective - Vital Signs Vital signs: Vital Signs Temp 98.5 F 12/28/20 02:36 Pulse 82 12/28/20 02:36 Resp 17 12/28/20 02:36 BP 130/74 12/28/20 02:36 Pulse Ox 92 L 12/28/20 02:36 Intake & Output 12/27/20 12/28/20 12/28/20 18:59 06:59 18:59 Intake Total 1100 200 Output Total 975 1350 Balance 125 -1150 Weight 102.512 kg Intake: IV 1100 200 Output: Urine 875 1350 Estimated Blood Loss 100 Other: Voiding Method Indwelling Catheter # Bowel Movements 0 - Exam Right lower extremity: Postoperative bandages removed at the site, molly are all in good position and condition. Minimal swelling and ecchymosis present. No drainage is present. Patient is able to wiggle the toes and no difficulty, plantar flexion, dorsiflexion, EHL and FHL are intact. Knee extension, knee flexion and hip flexion were difficult due to pain. Calf is soft, no tenderness with palpation. Sensory exam to light touch is intact throughout the extremity, soft tissue touch is diminished on the plantar aspect of the foot due to chronic neuropathy. Dorsalis pedis pulses 2+. Low back: At surgery on 12/27/2020 the incision was examined from his recent lumbar surger y. The sutures are all in good position and condition. There is no erythema or areas of soft tissue swelling. A new silver impregnated dressing was applied. - Labs CBC & Chem 7: 12/26/20 22:47 12/26/20 22:47 Labs: Abnormal Lab Results - Last 24 Hours (Table) 12/27/20 12/27/20 12/27/20 Range/Units 11:39 16:01 18:58 POC Glucose (mg/dL) 242 H 195 H 205 H (75-99) mg/dL 12/27/20 12/28/20 Range/Units 20:42 07:09 POC Glucose (mg/dL) 237 H 229 H (75-99) mg/dL Assessment and Plan Assessment: Postoperative day #1 status post right intramedullary nail right intertrochanteric femur fracture with subtrochanteric extension History of recent lumbar decompression with fusion Other medical comorbidities Plan: Pain control, continue IV medication as needed. Oral pain medication was restarted. GI and DVT prophylaxis, will heparin on 12/29/2020 Wound care instructions: dressing change every 2 days, continue to ice the right hip as needed Weight-bear as tolerated with walker, PT/OT evaluation Medical recommendations Discharge planning: Patient will likely need subacute rehab, plan for discharge on 12/31/2020 Time with Patient: Less than 30
[2020-12-28 11:24] LABS: Potassium 4.2 mmol/L (3.5-5.1)
[2020-12-28 11:25] LABS: African American GFR (CKD) 87 (>60 ml/min/1.73 sqM); Anion Gap 9 mmol/L; Blood Urea Nitrogen 20 mg/dL (9-20); Calcium 8.7 mg/dL (8.4-10.2); Carbon Dioxide 22 mmol/L (22-30); Chloride 105 mmol/L (98-107); Glucose 220 mg/dL (74-99); Non-African American GFR(CKD) 75 (>60 ml/min/1.73 sqM); Sodium 136 mmol/L (137-145)
[2020-12-28 11:34] LABS: Glucose,Whole Blood 262 mg/dL (75-99)
[2020-12-28 11:48] LABS: Basophils # (A) 0.03 X 10*3/uL (0.00-0.10); Basophils % (A) 0.3 %; Eosinophils # (A) 0.03 X 10*3/uL (0.04-0.35); Eosinophils % (A) 0.3 %; HCT 34.6 % (39.6-50.0); HGB 11.6 g/dL (13.0-17.0); Lymphocytes % (A) 9.9 %; MCH 30.4 pg (27.0-32.0); MCHC 33.5 g/dL (32.0-37.0); MCV 90.6 fL (80.0-97.0); Mean Platelet Volume 10.4 fL (9.5-12.2); Monocytes # (A) 1.05 X 10*3/uL (0.20-1.00); Monocytes % (A) 10.4 %; Neutrophils # (A) 7.93 X 10*3/uL (1.80-7.70); Neutrophils % (A) 78.7 %; Platelet Count 240 X 10*3/uL (140-440); RBC 3.82 X 10*6/uL (4.40-5.60); RDW 12.2 % (11.5-14.5); WBC 10.08 X 10*3/uL (4.50-10.00)
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
[2020-12-28] MEDS ORDERED: GABAPENTIN 300 MG CAP PO SCH (16:00)
[2020-12-28 16:42] LABS: Glucose,Whole Blood 305 mg/dL (75-99)
[2020-12-28 20:23] LABS: Glucose,Whole Blood 309 mg/dL (75-99)
[2020-12-28] MEDS ORDERED: INSULIN DETEMIR (LEVEMIR) 100 UNIT/ML SYR SQ SCH (21:00)
[2020-12-29] MEDS: MORPHINE SULFATE 4 MG/ML SYRINGE IVP PRN ×3 (07:03→19:36)
[2020-12-29 07:05] LABS: Glucose,Whole Blood 200 mg/dL (75-99)
[2020-12-29] MEDS: LOSARTAN 50 MG TAB PO SCH (07:05)
[2020-12-29] MEDS: METOPROLOL SUCCINATE (ER) 100 MG TAB.ER.24H PO SCH (07:06)
[2020-12-29] MEDS: amLODIPine 5 MG TAB PO SCH (07:06)
[2020-12-29] MEDS: buPROPion XL 300 MG TAB.ER.24H PO SCH (07:06)
[2020-12-29] MEDS: PANTOPRAZOLE 40 MG TABLET PO SCH (07:06)
[2020-12-29] MEDS: GABAPENTIN 400 MG CAP PO SCH ×3 (07:06→20:10)
[2020-12-29] MEDS: INSULIN ASPART (NovoLOG) 100 UNIT/ML VIAL SQ SCH ×4 (07:09→21:04)
[2020-12-29] MEDS: oxyCODONE-APAP 10-325MG 1 EACH TAB PO PRN ×2 (08:23→14:26)
--- NOTE | 2020-12-29 08:42 | P.PN ---
Subjective Progress Note Date: 12/29/20 Principal diagnosis: Status post intramedullary nailing right intertrochanteric femur fracture Patient evaluated at bedside, resting comfortably. Patient notes some soreness in the right lower extremity and low back. He denies any headaches, lightheadedness, chest pain or shortness of breath. Objective - Vital Signs Vital signs: Vital Signs Temp 98.7 F 12/29/20 06:52 Pulse 82 12/29/20 06:52 Resp 14 12/29/20 07:09 BP 130/75 12/29/20 06:52 Pulse Ox 94 L 12/29/20 06:52 Intake & Output 12/28/20 12/29/20 12/29/20 18:59 06:59 18:59 Intake Total 2340 Output Total 500 1000 Balance 1840 -1000 Intake: Intake, IV Titration 500 Amount Sodium Chloride 0.9% 100 400 ml @ 0 mls/hr IV .STK-MED ONE with ceFAZolin 2,000 mg Rx#:[id number] ceFAZolin 2 gm In Sodium 100 Chloride 0.9% 50 ml @ 100 mls/hr IVPB Q8HR [facility] Rx# :[id number] Oral 1840 Output: Urine 500 1000 Other: Voiding Method Indwelling Catheter Indwelling Catheter Indwelling Catheter - Exam Right lower extremity: Postoperative bandages removed at the site, molly are all in good position and condition. Minimal swelling and ecchymosis present. No drainage is present. Patient is able to wiggle the toes and no difficulty, plantar flexion, dorsiflexion, EHL and FHL are intact. Knee extension, knee flexion and hip flexion were difficult due to pain. Calf is soft, no tenderness with palpation. Sensory exam to light touch is intact throughout the extremity, soft tissue touch is diminished on the plantar aspect of the foot due to chronic neuropathy. Dorsalis pedis pulses 2+. Low back: At surgery on 12/27/2020 the incision was examined from his recent lumbar chrissie jordan. The sutures are all in good position and condition. There is no erythema or areas of soft tissue swelling. A new silver impregnated dressing was applied. - Labs CBC & Chem 7: 12/28/20 07:11 12/28/20 07:11 Labs: Abnormal Lab Results - Last 24 Hours (Table) 12/28/20 12/28/20 12/28/20 Range/Units 07:11 07:11 11:30 WBC 10.08 H (4.50-10.00) X 10*3/uL RBC 3.82 L (4.40-5.60) X 10*6/uL Hgb 11.6 L (13.0-17.0) g/dL Hct 34.6 L (39.6-50.0) % Neutrophils # 7.93 H (1.80-7.70) X 10*3/uL Monocytes # 1.05 H (0.20-1.00) X 10*3/uL Eosinophils # 0.03 L (0.04-0.35) X 10*3/uL Sodium 136 L (137-145) mmol/L Glucose 220 H (74-99) mg/dL POC Glucose (mg/dL) 262 H (75-99) mg/dL 12/28/20 12/28/20 12/29/20 Range/Units 16:31 20:19 07:03 WBC (4.50-10.00) X 10*3/uL RBC (4.40-5.60) X 10*6/uL Hgb (13.0-17.0) g/dL Hct (39.6-50.0) % Neutrophils # (1.80-7.70) X 10*3/uL Monocytes # (0.20-1.00) X 10*3/uL Eosinophils # (0.04-0.35) X 10*3/uL Sodium (137-145) mmol/L Glucose (74-99) mg/dL POC Glucose (mg/dL) 305 H 309 H 200 H (75-99) mg/dL Assessment and Plan Assessment: Postoperative day #2 status post right intramedullary nail right inter trochanteric femur fracture with subtrochanteric extension History of recent lumbar decompression with fusion Other medical comorbidities Plan: Pain control, continue IV medication as needed. Oral pain medication was restarted. GI and DVT prophylaxis, continue heparin 5000 units every 12 Wound care instructions: dressing change every 2 days, continue to ice the right hip as needed Weight-bear as tolerated with walker, PT/OT evaluation Medical recommendations Discharge planning: Patient will likely need subacute rehab, plan for discharge on 12/31/2020 Time with Patient: Less than 30
[2020-12-29] MEDS: HEPARIN SODIUM,PORCINE/PF 5,000 UNIT/0.5 ML SYRINGE SQ SCH ×2 (10:19→20:11)
[2020-12-29 11:30] LABS: Glucose,Whole Blood 186 mg/dL (75-99)
--- NOTE | 2020-12-29 11:30 | P.PN ---
Subjective Patient is a pleasant 65-year-old male was admitted for intramedullary nailing of right intertrochanteric femoral fracture. Patient is clinically doing well blood sugars are elevated. Patient was started on a low-dose of Lantus and long-acting insulin as patient was nothing by mouth last night. Patient started eating today and blood sugars are very high. Patient also takes with Prozac at home. Patient will be resumed on home regimen. Patient blood sugars are fairly stable on home regimen which will be continued. Patient also has mild acute renal failure because of which I cut down on developing came which will be resumed again as his creatinine and kidney function improved. Patient presently doesn't have any signs or symptoms of sepsis does have mild leukocytosis patient doesn't have a Henry catheter. 12/29/2020 Patient is passing gas. Constitutional: Denied any fatigue denied any fever. Cardio vascular: denied any chest pain, palpitations Gastrointestinal denied any nausea vomiting Pulmonary: Denied any shortness of breath cough Neurologic denied any new focal deficits All inpatient medications were reviewed and appropriate changes in these medications as dictated in the interval history and assessment and plan. Objective - Vital Signs Vital signs: Vital Signs Temp 98.7 F 12/29/20 06:52 Pulse 82 12/29/20 06:52 Resp 14 12/29/20 07:09 BP 130/75 12/29/20 06:52 Pulse Ox 94 L 12/29/20 06:52 Intake & Output 12/28/20 12/29/20 12/29/20 18:59 06:59 18:59 Intake Total 2340 Output Total 500 1000 Balance 1840 -1000 Intake: Intake, IV Titration 500 Amount Sodium Chloride 0.9% 100 400 ml @ 0 mls/hr IV .STK-MED ONE with ceFAZolin 2,000 mg Rx#:[id number] ceFAZolin 2 gm In Sodium 100 Chloride 0.9% 50 ml @ 100 mls/hr IVPB Q8HR [facility] Rx# :[id number] Oral 1840 Output: Urine 500 1000 Other: Voiding Method Indwelling Catheter Indwelling Catheter Indwelling Catheter - Exam PHYSICAL EXAMINATION: GENERAL: The patient is alert and oriented x3, not in any acute distress. Well developed, well nourished. HEENT: Pupils are round and equally reacting to light. EOMI. No scleral icterus. No conjunctival pallor. Normocephalic, atraumatic. No pharyngeal erythema. No thyromegaly. CARDIOVASCULAR: S1 and S2 present. No murmurs, rubs, or gallops. PULMONARY: Chest is clear to auscultation, no wheezing or crackles. ABDOMEN: Soft, nontender, nondistended, normoactive bowel sounds. No palpable organomegaly. MUSCULOSKELETAL: Deferred to orthopedic surgery EXTREMITIES: No cyanosis, clubbing, or pedal edema. NEUROLOGICAL: Gross neurological examination did not reveal any focal deficits. SKIN: No rashes. - Labs CBC & Chem 7: 12/28/20 07:11 12/28/20 07:11 Labs: Abnormal Lab Results - Last 24 Hours (Table) 12/28/20 12/28/20 12/28/20 Range/Units 07:11 07:11 11:30 WBC 10.08 H (4.50-10.00) X 10*3/uL RBC 3.82 L (4.40-5.60) X 10*6/uL Hgb 11.6 L (13.0-17.0) g/dL Hct 34.6 L (39.6-50.0) % Neutrophils # 7.93 H (1.80-7.70) X 10*3/uL Monocytes # 1.05 H (0.20-1.00) X 10*3/uL Eosinophils # 0.03 L (0.04-0.35) X 10*3/uL Sodium 136 L (137-145) mmol/L Glucose 220 H (74-99) mg/dL POC Glucose (mg/dL) 262 H (75-99) mg/dL 12/28/20 12/28/20 12/29/20 Range/Units 16:31 20:19 07:03 WBC (4.50-10.00) X 10*3/uL RBC (4.40-5.60) X 10*6/uL Hgb (13.0-17.0) g/dL Hct (39.6-50.0) % Neutrophils # (1.80-7.70) X 10*3/uL Monocytes # (0.20-1.00) X 10*3/uL Eosinophils # (0.04-0.35) X 10*3/uL Sodium (137-145) mmol/L Glucose (74-99) mg/dL POC Glucose (mg/dL) 305 H 309 H 200 H (75-99) mg/dL Assessment and Plan Plan: -Type 2 diabetes mellitus uncontrolled elevated blood sugars , will increase along acting insulin. -Hypertension continue with present regimen -Diabetic peripheral neuropathy patient will be resumed on home regimen of gabapentin -Acute renal failure we'll azotemia secondary to intravascular depletion, dehydration improved serum creatinine now. -Right intertrochanteric fracture status post intramedullary nailing DVT prophylaxis and pain management as per primary service -Continued nicotine use: Counseling was provided
[2020-12-29] MEDS: CYCLOBENZAPRINE 10 MG TAB PO SCH ×2 (16:21→20:10)
[2020-12-29] MEDS: FERROUS SULFATE 325 MG TAB PO SCH (16:21)
[2020-12-29 16:46] LABS: Glucose,Whole Blood 335 mg/dL (75-99)
[2020-12-29 20:16] LABS: Glucose,Whole Blood 422 mg/dL (75-99)
[2020-12-29] MEDS ORDERED: INSULIN DETEMIR (LEVEMIR) 100 UNIT/ML SYR SQ SCH (21:00)
[2020-12-30] MEDS: MORPHINE SULFATE 4 MG/ML SYRINGE IVP PRN (02:13)
[2020-12-30] MEDS: oxyCODONE-APAP 10-325MG 1 EACH TAB PO PRN ×5 (03:55→23:27)
--- NOTE | 2020-12-30 04:56 | FL ---
EXAMINATION TYPE: FL guidance operating room DATE OF EXAM: 12/27/2020 FLUOROSCOPY Fluoroscopy time of 2 minutes 32 seconds was used during right hip ORIF. 7 image/s document/s the chani quintanilla.
[2020-12-30 07:22] LABS: Glucose,Whole Blood 203 mg/dL (75-99)
--- NOTE | 2020-12-30 07:47 | P.PN ---
Subjective Progress Note Date: 12/30/20 Principal diagnosis: R hip fracture Patient seen and examined is sitting up in bed eating breakfast he complains of pain. He states is very difficult to ambulate and he tried yesterday was able to do so he will try again today he denies any other symptoms denies any numbness or tingling denies effusion chills shortness breath or chest pain. He states his back feels really good and really has no issues but his hip is very painful in his right leg is painful. Objective - Vital Signs Vital signs: Vital Signs Temp 100.2 F H 12/30/20 03:15 Pulse 62 12/30/20 03:15 Resp 17 12/30/20 03:15 BP 112/65 12/30/20 03:15 Pulse Ox 93 L 12/30/20 03:15 Intake & Output 12/29/20 12/30/20 12/30/20 18:59 06:59 18:59 Intake Total 720 Output Total 400 1000 Balance 320 -1000 Intake: Oral 720 Output: Urine 400 1000 Other: Voiding Method Indwelling Catheter Indwelling Catheter # Voids 1 - Exam Patient is alert and oriented 3 appears well-nourished well-hydrated is in no acute distress. They does not appear septic. On exam the patient has no tenderness to palpation of her thoracic or lumbar spine. There is no edema or ballottement sign. Lower extremities with 5 out of 5 strength in all major muscle groups Upper extremities show 5/5 strength in all major muscle groups. There is FROM that is painless of the b/l UE and LE in all major joints. They are intact to light touch sensation in L2 to S1 nerve distribution. Patient has palpable dorsalis pedis was posterior tibial pulses. Compartments are soft and compressible. Patient shows a negative Homans, Chase's, negative Babinski's negative clonus bilaterally. negative straight leg raise bilaterally. No tensioning signs. Cranial nerves II through XII are grossly intact. Overall alignment is well-maintained in the sagittal coronal planes. Incisions are clean dry and intact dressing are clean dry and intact of the back as well as right leg will change right leg dressings today. - Labs CBC & Chem 7: 12/28/20 07:11 12/28/20 07:11 Labs: Abnormal Lab Results - Last 24 Hours (Table) 12/29/20 12/29/20 12/29/20 Range/Units 11:28 16:44 20:14 POC Glucose (mg/dL) 186 H 335 H 422 H (75-99) mg/dL 12/30/20 Range/Units 07:13 POC Glucose (mg/dL) 203 H (75-99) mg/dL Assessment and Plan Assessment: 65-year-old male postop day 2 right inch medullary nail fixation Status post lumbar decompression Status post fall from standing Plan: -Appreciate medicine management. Symptom Control: -Pain control: Adequate at this time . Would recommend low on the narcotic side of pain medications if needed. Could try a muscle relaxer as well Activity: -Aggressive ambulation protocol. OOB with all meals. OOB or in chair 4-5x daily. -PT/OT Prophylaxis: -TEDs, SCDs, mechanical ppx. OK for heparin today. Early ambulation is best. -GI ppx. Imaging/labs: No further imaging needed at this time -Trend labs as appropriate Dispo: Pending, will likely need rehab
[2020-12-30] MEDS: GABAPENTIN 400 MG CAP PO SCH ×3 (07:50→21:32)
[2020-12-30] MEDS: CYCLOBENZAPRINE 10 MG TAB PO SCH ×2 (07:54→19:24)
[2020-12-30] MEDS: buPROPion XL 300 MG TAB.ER.24H PO SCH (07:54)
[2020-12-30] MEDS: FERROUS SULFATE 325 MG TAB PO SCH ×2 (07:54→16:12)
[2020-12-30] MEDS: HEPARIN SODIUM,PORCINE/PF 5,000 UNIT/0.5 ML SYRINGE SQ SCH ×2 (07:54→21:33)
[2020-12-30] MEDS: PANTOPRAZOLE 40 MG TABLET PO SCH (07:54)
[2020-12-30] MEDS: INSULIN ASPART (NovoLOG) 100 UNIT/ML VIAL SQ SCH ×5 (07:55→21:33)
[2020-12-30] MEDS: LOSARTAN 50 MG TAB PO SCH (08:35)
[2020-12-30] MEDS: METOPROLOL SUCCINATE (ER) 100 MG TAB.ER.24H PO SCH (08:36)
[2020-12-30] MEDS: amLODIPine 5 MG TAB PO SCH (08:36)
[2020-12-30 08:45] LABS: African American GFR (CKD) 79 (>60 ml/min/1.73 sqM); Anion Gap 7 mmol/L; Blood Urea Nitrogen 30 mg/dL (9-20); Calcium 8.4 mg/dL (8.4-10.2); Carbon Dioxide 23 mmol/L (22-30); Chloride 103 mmol/L (98-107); Glucose 176 mg/dL (74-99); Non-African American GFR(CKD) 68 (>60 ml/min/1.73 sqM); Sodium 133 mmol/L (137-145)
[2020-12-30 11:14] LABS: Basophils # (A) 0.06 X 10*3/uL (0.00-0.10); Basophils % (A) 0.5 %; Eosinophils # (A) 0.45 X 10*3/uL (0.04-0.35); Eosinophils % (A) 3.8 %; HCT 33.1 % (39.6-50.0); HGB 10.8 g/dL (13.0-17.0); Lymphocytes # (A) 1.38 X 10*3/uL (0.90-5.00); Lymphocytes % (A) 11.5 %; MCH 29.5 pg (27.0-32.0); MCHC 32.6 g/dL (32.0-37.0); MCV 90.4 fL (80.0-97.0); Mean Platelet Volume 10.6 fL (9.5-12.2); Monocytes # (A) 1.46 X 10*3/uL (0.20-1.00); Monocytes % (A) 12.2 %; Neutrophils # (A) 8.59 X 10*3/uL (1.80-7.70); Neutrophils % (A) 71.5 %; Platelet Count 268 X 10*3/uL (140-440); RBC 3.66 X 10*6/uL (4.40-5.60); RDW 11.9 % (11.5-14.5)
[2020-12-30 11:29] LABS: Glucose,Whole Blood 358 mg/dL (75-99)
--- NOTE | 2020-12-30 14:53 | P.PN ---
Subjective Progress Note Date: 12/30/20 This is a 65-year-old gentleman status post fall admitted with right intertrochanteric fracture status post intramedullary nailing, recent lumbar surgery 12/10 and multiple other medical issues.Reports "sharp" pain with movement. Unable to stand up at bedside yesterday with PT, but sat at at bedside. PT pending for today. T-max 100.2, WBC 12. Maintaining O2 sats in the 90s on room air .Good diet intake, denies nausea vomiting or diarrhea, hyperglycemic. BUN 30, creatinine 1.12. Passing flatus. Denies chest pain, palpitations or increasing shortness of breath. Objective - Vital Signs Vital signs: Vital Signs Temp 99.1 F 12/30/20 13:42 Pulse 81 12/30/20 13:42 Resp 18 12/30/20 13:42 BP 101/62 12/30/20 13:42 Pulse Ox 97 12/30/20 13:42 Intake & Output 12/29/20 12/30/20 12/30/20 18:59 06:59 18:59 Intake Total 720 Output Total 400 1000 Balance 320 -1000 Intake: Oral 720 Output: Urine 400 1000 Other: Voiding Method Indwelling Catheter Indwelling Catheter Indwelling Catheter # Voids 1 - Exam PHYSICAL EXAMINATION: GENERAL: alert and oriented x3, no acute distress. HEENT: Pupils are round and equally reacting to light. EOMI. No scleral icterus. No conjunctival pallor. Normocephalic, atraumatic CARDIOVASCULAR: S1 and S2 present. No murmurs, rubs, or gallops. PULMONARY: Chest is clear to auscultation, no wheezing or crackles. Bilateral bases diminished. ABDOMEN: Soft, nontender, nondistended, normoactive bowel sounds. No palpable organomegaly. EXTREMITIES: Right lower extremity dressing C,D,I, mild edema.No cyanosis, clubbing or pedal edema. NEUROLOGICAL: Gross neurological examination did not reveal any focal deficits. SKIN: Warm and dry, No rashes. - Labs CBC & Chem 7: 12/30/20 07:44 12/30/20 07:44 Labs: Abnormal Lab Results - Last 24 Hours (Table) 12/29/20 12/29/20 12/30/20 Range/Units 16:44 20:14 07:13 WBC (4.50-10.00) X 10*3/uL RBC (4.40-5.60) X 10*6/uL Hgb (13.0-17.0) g/dL Hct (39.6-50.0) % Immature Gran # (0.00-0.04) X 10*3/uL Neutrophils # (1.80-7.70) X 10*3/uL Monocytes # (0.20-1.00) X 10*3/uL Eosinophils # (0.04-0.35) X 10*3/uL Sodium (137-145) mmol/L BUN (9-20) mg/dL Glucose (74-99) mg/dL POC Glucose (mg/dL) 335 H 422 H 203 H (75-99) mg/dL 12/30/20 12/30/20 12/30/20 Range/Units 07:44 07:44 11:22 WBC 12.00 H (4.50-10.00) X 10*3/uL RBC 3.66 L (4.40-5.60) X 10*6/uL Hgb 10.8 L (13.0-17.0) g/dL Hct 33.1 L (39.6-50.0) % Immature Gran # 0.06 H (0.00-0.04) X 10*3/uL Neutrophils # 8.59 H (1.80-7.70) X 10*3/uL Monocytes # 1.46 H (0.20-1.00) X 10*3/uL Eosinophils # 0.45 H (0.04-0.35) X 10*3/uL Sodium 133 L (137-145) mmol/L BUN 30 H (9-20) mg/dL Glucose 176 H (74-99) mg/dL POC Glucose (mg/dL) 358 H (75-99) mg/dL Assessment and Plan Assessment: Right intertrochanteric fracture, reported prior fall, status post intramedullary nailing History of recent lumbar decompression with fusion Atelectasis Diabetes mellitus type 2, uncontrolled, hyperglycemia Diabetic peripheral neuropathy Acute renal failure, azotemia, secondary to intravascular depletion, dehydration Ongoing nicotine dependence, smoking cessation reinforced Plan: Continue on current medication regime ,monitoring and symptomatic treatment. Chest x-ray ordered related to fever, mild leukocytosis, suspect ate lectasis. Aggressive pulmonary toileting with Incentive spirometer ordered. Levemir dose increased, pre-meal insulin added with parameters. Close monitoring of Accu-Cheks. PT/OT. Pain management/anticoagulation as per orthopedic surgery. The impression and plan of care has been dictated as directed. : I performed a history and examination of this patient, discussed the same with the dictator. I agree with the dictator's note ,documented as a scribe. Any additional findings or plans will be noted.
--- NOTE | 2020-12-30 15:51 | XR ---
EXAMINATION TYPE: XR chest 1V portable DATE OF EXAM: 12/30/2020 COMPARISON: 12/26/2020 HISTORY: Fever TECHNIQUE: Single frontal view of the chest is obtained. FINDINGS: There is no focal air space opacity, pleural effusion, or pneumothorax seen. The cardiac silhouette size is within normal limits. The osseous structures are intact. Heart is enlarged and t here is a coarsened interstitium with hyperinflation. Diffuse osteopenia. A vague nodular density in the left retrosternal region. IMPRESSION: 1. Cardiomegaly, COPD and chronic interstitial lung disease. Vague nodular density in the retrosterna l region on the left likely is artifactual and was not clearly seen on the prior exam. Possibly relat ed to nipple shadow. Standard PA and lateral views the chest could be obtained in a short-term basis.
[2020-12-30 16:10] LABS: Glucose,Whole Blood 258 mg/dL (75-99)
[2020-12-30] MEDS ORDERED: INSULIN DETEMIR (LEVEMIR) 100 UNIT/ML SYR SQ SCH (21:00)
[2020-12-30 21:11] LABS: Glucose,Whole Blood 181 mg/dL (75-99)
[2020-12-31] MEDS: oxyCODONE-APAP 10-325MG 1 EACH TAB PO PRN (05:21)
[2020-12-31 07:13] LABS: Glucose,Whole Blood 378 mg/dL (75-99)
[2020-12-31] MEDS: LOSARTAN 50 MG TAB PO SCH (08:09)
[2020-12-31] MEDS: METOPROLOL SUCCINATE (ER) 100 MG TAB.ER.24H PO SCH (08:09)
[2020-12-31] MEDS: PANTOPRAZOLE 40 MG TABLET PO SCH (08:09)
[2020-12-31] MEDS: HEPARIN SODIUM,PORCINE/PF 5,000 UNIT/0.5 ML SYRINGE SQ SCH ×2 (08:09→20:39)
[2020-12-31] MEDS: CYCLOBENZAPRINE 10 MG TAB PO SCH (08:09)
[2020-12-31] MEDS: buPROPion XL 300 MG TAB.ER.24H PO SCH (08:09)
[2020-12-31] MEDS: GABAPENTIN 400 MG CAP PO SCH ×3 (08:09→20:39)
[2020-12-31] MEDS: FERROUS SULFATE 325 MG TAB PO SCH ×2 (08:10→16:58)
[2020-12-31] MEDS: amLODIPine 5 MG TAB PO SCH (08:10)
[2020-12-31] MEDS: INSULIN ASPART (NovoLOG) 100 UNIT/ML VIAL SQ SCH ×8 (08:10→20:39)
--- NOTE | 2020-12-31 10:24 | P.PN ---
Subjective Progress Note Date: 12/31/20 Principal diagnosis: Status post intramedullary nailing right intertrochanteric femur fracture Patient evaluated at bedside, resting comfortably. Discussed with nursing prior to entering the patient's room. He is having some confusion today. He's not moving very much at this time. He notes mostly discomfort in the right lower extremity. He denies any headaches, lightheadedness, chest pain or shortness of breath. Objective - Vital Signs Vital signs: Vital Signs Temp 98.8 F 12/31/20 07:49 Pulse 95 12/31/20 07:49 Resp 18 12/31/20 07:49 BP 107/63 12/31/20 07:49 Pulse Ox 95 12/31/20 07:49 Intake & Output 12/30/20 12/31/20 12/31/20 18:59 06:59 18:59 Output Total 600 1000 Balance -600 -1000 Output: Urine 600 1000 Other: Voiding Method Indwelling Catheter Indwelling Catheter Indwelling Catheter # Bowel Movements 0 - Exam Right lower extremity: Minimal swelling and ecchymosis present. No drainage is present. Patient is able to wiggle the toes and no difficulty, plantar flexion, dorsiflexion, EHL and FHL are intact. Knee extension, knee flexion and hip flexion were difficult due to pain. Calf is soft, no tenderness with palpation. Sensory exam to light touch is intact throughout the extremity, soft tissue touch is diminished on the plantar aspect of the foot due to chronic neuropathy. Dorsalis pedis pulses 2+. - Labs CBC & Chem 7: 12/30/20 07:44 12/30/20 07:44 Labs: Abnormal Lab Results - Last 24 Hours (Table) 12/30/20 12/30/20 12/30/20 Range/Units 07:44 11:22 16:06 WBC 12.00 H (4.50-10.00) X 10*3/uL RBC 3.66 L (4.40-5.60) X 10*6/uL Hgb 10.8 L (13.0-17.0) g/dL Hct 33.1 L (39.6-50.0) % Immature Gran # 0.06 H (0.00-0.04) X 10*3/uL Neutrophils # 8.59 H (1.80-7.70) X 10*3/uL Monocytes # 1.46 H (0.20-1.00) X 10*3/uL Eosinophils # 0.45 H (0.04-0.35) X 10*3/uL POC Glucose (mg/dL) 358 H 258 H (75-99) mg/dL 12/30/20 12/31/20 Range/Units 21:09 07:11 WBC (4.50-10.00) X 10*3/uL RBC (4.40-5.60) X 10*6/uL Hgb (13.0-17.0) g/dL Hct (39.6-50.0) % Immature Gran # (0.00-0.04) X 10*3/uL Neutrophils # (1.80-7.70) X 10*3/uL Monocytes # (0.20-1.00) X 10*3/uL Eosinophils # (0.04-0.35) X 10*3/uL POC Glucose (mg/dL) 181 H 378 H (75-99) mg/dL Assessment and Plan Assessment: Postoperative day #3 status post right intramedullary nail right intertro chanteric femur fracture with subtrochanteric extension History of recent lumbar decompression with fusion Other medical comorbidities Plan: Pain control, will adjust medication GI and DVT prophylaxis, continue heparin 5000 units every 12 Wound care instructions: dressing change every 2 days, continue to ice the right hip as needed Weight-bear as tolerated with walker, PT/OT evaluation Primary mission will be changed to internal medicine at this time, our orthop edic team will remain on for consult Discharge planning: Hopeful discharge to rehab seen Time with Patient: Less than 30
[2020-12-31 11:25] LABS: Glucose,Whole Blood 259 mg/dL (75-99)
[2020-12-31] MEDS ORDERED: IPRATROPIUM-ALBUTEROL 3 ML NEB INHALATION PRN (13:45)
[2020-12-31] MEDS: oxyCODONE-APAP 7.5-325MG 1 EACH TAB PO PRN (14:02)
[2020-12-31] MEDS: SENNOSIDES-DOCUSATE SODIUM 1 EACH TAB PO SCH ×2 (14:02→20:39)
--- NOTE | 2020-12-31 14:19 | P.PN ---
Subjective Progress Note Date: 12/31/20 This is a 65-year-old gentleman status post fall admitted with right intertrochanteric fracture status post intramedullary nailing, recent lumbar surgery 12/10 and multiple other medical issues.Reports "sharp" pain with movement. Unable to stand up at bedside yesterday with PT, but sat at at bedside. PT pending for today. T-max 100.2, WBC 12. Maintaining O2 sats in the 90s on room air .Good diet intake, denies nausea vomiting or diarrhea, hyperglycemic. BUN 30, creatinine 1.12. Passing flatus. Denies chest pain, palpitations or increasing shortness of breath. 12/31/2020 reports rough night, did not sleep well. Reports pain about the same. Sleepy this morning reporting periods of confusion, upon awakening he states confused, disoriented; thought he was in [place], [place]. Chest x-ray reported cardiomegaly, COPD, chronic interstitial lung disease, vague nodular density in the retroperitoneal region on the left, likely artifact, possibly related to nipple shadow . T-max 100.2, WBC trending up, 12. Maintaining O2 sats in the 90s on room air. Borderline hypotension, mildly elevated renal function, Norvasc discontinued. Objective - Vital Signs Vital signs: Vital Signs Temp 98.8 F 12/31/20 07:49 Pulse 95 12/31/20 07:49 Resp 18 12/31/20 07:49 BP 107/63 12/31/20 07:49 Pulse Ox 95 12/31/20 07:49 Intake & Output 12/30/20 12/31/20 12/31/20 18:59 06:59 18:59 Output Total 600 1000 Balance -600 -1000 Output: Urine 600 1000 Other: Voiding Method Indwelling Catheter Indwelling Catheter Indwelling Catheter # Bowel Movements 0 - Exam PHYSICAL EXAMINATION: GENERAL: alert and oriented x3, no acute distress. HEENT: Pupils are round and equally reacting to light. No scleral icterus. No c onjunctival pallor. Normocephalic, atraumatic CARDIOVASCULAR: S1 and S2 present. No murmurs, rubs, or gallops. PULMONARY: Chest is clear to auscultation, Bilateral bases diminished. ABDOMEN: Soft, nontender, nondistended, normoactive bowel sounds. No palpable organomegaly. EXTREMITIES: Right lower extremity dressing C,D,I, mild edema.No cyanosis, clubbing or pedal edema. NEUROLOGICAL: Gross neurological examination did not reveal any focal deficits. SKIN: Warm and dry, No rashes. - Labs CBC & Chem 7: 12/30/20 07:44 12/30/20 07:44 Labs: Abnormal Lab Results - Last 24 Hours (Table) 12/30/20 12/30/20 12/31/20 Range/Units 16:06 21:09 07:11 POC Glucose (mg/dL) 258 H 181 H 378 H (75-99) mg/dL 12/31/20 Range/Units 11:22 POC Glucose (mg/dL) 259 H (75-99) mg/dL Assessment and Plan Assessment: Right intertrochanteric fracture, reported prior fall, status post intramedullary nailing History of recent lumbar decompression with fusion Atelectasis Acute metabolic encephalopathy, suspect secondary to atelectasis, opioids. Pro- calcitonin ordered. Diabetes mellitus type 2, uncontrolled, hyperglycemia Diabetic peripheral neuropathy Acute renal failure, azotemia, secondary to intravascular depletion, dehydration Ongoing nicotine dependence, smoking cessation reinforced COPD Chronic interstitial lung disease Plan: Continue on current medication regime ,monitoring and symptomatic treatment. Pro-calcitonin level ordered. Maintain aggressive pulmonary toileting,reinstructed on how to use his incentive spirometer. Borderline hypotension, Norvasc discontinued.gentle IV fluid hydration .close monitoring of renal function with repeat labs ordered for a.m. Levemir dose increased, pre- meal insulin increased with parameters. Close monitoring of Accu-Cheks. PT/OT. Pain management/anticoagulation as per orthopedic surgery. Discharge planning in progress, soon. The impression and plan of care has been dictated as directed. : I performed a history and examination of this patient, discussed the same with the dictator. I agree with the dictator's note ,documented as a scribe. Any additional findings or plans will be noted.
[2020-12-31 16:37] LABS: Glucose,Whole Blood 222 mg/dL (75-99)
[2020-12-31] MEDS: SODIUM CHLORIDE 0.9% 1,000 ML IV SCH (16:59)
[2020-12-31] MEDS: IPRATROPIUM-ALBUTEROL 3 ML NEB INHALATION SCH ×2 (17:07→21:32)
[2020-12-31] MEDS: SYMBICORT 160-4.5 MCG INHALER INHALATION SCH ×2 (17:07→21:33)
[2020-12-31 20:17] LABS: Glucose,Whole Blood 248 mg/dL (75-99)
[2020-12-31] MEDS: CYCLOBENZAPRINE 5 MG TAB PO SCH (20:39)
[2020-12-31] MEDS: DOCUSATE 100 MG CAP PO SCH (20:39)
[2020-12-31] MEDS: INSULIN DETEMIR (LEVEMIR) 100 UNIT/ML SYR SQ SCH (20:39)
[2020-12-31] MEDS: LEVOFLOXACIN 750MG-D5W PMX 750 MG in DEXTROSE/WATER 1 150ML.BAG IVPB SCH (22:43)
[2021-01-01 06:45] LABS: Glucose,Whole Blood 146 mg/dL (75-99)
[2021-01-01] MEDS: GABAPENTIN 400 MG CAP PO SCH ×3 (08:47→21:05)
[2021-01-01] MEDS: buPROPion XL 300 MG TAB.ER.24H PO SCH (08:47)
[2021-01-01] MEDS: DOCUSATE 100 MG CAP PO SCH ×2 (08:47→21:05)
[2021-01-01] MEDS: METOPROLOL SUCCINATE (ER) 100 MG TAB.ER.24H PO SCH (08:47)
[2021-01-01] MEDS: CYCLOBENZAPRINE 5 MG TAB PO SCH ×2 (08:47→21:05)
[2021-01-01] MEDS: HEPARIN SODIUM,PORCINE/PF 5,000 UNIT/0.5 ML SYRINGE SQ SCH ×2 (08:47→21:04)
[2021-01-01] MEDS: LOSARTAN 50 MG TAB PO SCH (08:47)
[2021-01-01] MEDS: SENNOSIDES-DOCUSATE SODIUM 1 EACH TAB PO SCH ×2 (08:47→21:05)
[2021-01-01] MEDS: PANTOPRAZOLE 40 MG TABLET PO SCH (08:47)
[2021-01-01] MEDS: FERROUS SULFATE 325 MG TAB PO SCH ×2 (08:47→16:57)
[2021-01-01] MEDS: INSULIN ASPART (NovoLOG) 100 UNIT/ML VIAL SQ SCH ×7 (09:06→21:11)
[2021-01-01] MEDS: SYMBICORT 160-4.5 MCG INHALER INHALATION SCH ×2 (09:43→22:24)
[2021-01-01] MEDS: IPRATROPIUM-ALBUTEROL 3 ML NEB INHALATION SCH ×4 (09:44→22:24)
[2021-01-01] MEDS: oxyCODONE-APAP 7.5-325MG 1 EACH TAB PO PRN ×2 (09:59→16:58)
[2021-01-01 10:28] LABS: Basophils # (A) 0.04 X 10*3/uL (0.00-0.10); Basophils % (A) 0.4 %; Eosinophils # (A) 0.33 X 10*3/uL (0.04-0.35); Eosinophils % (A) 2.9 %; HCT 30.4 % (39.6-50.0); HGB 10.1 g/dL (13.0-17.0); Lymphocytes # (A) 0.95 X 10*3/uL (0.90-5.00); Lymphocytes % (A) 8.5 %; MCHC 33.2 g/dL (32.0-37.0); MCV 90.2 fL (80.0-97.0); Mean Platelet Volume 10.7 fL (9.5-12.2); Monocytes # (A) 1.41 X 10*3/uL (0.20-1.00); Monocytes % (A) 12.6 %; Neutrophils # (A) 8.43 X 10*3/uL (1.80-7.70); Platelet Count 292 X 10*3/uL (140-440); RBC 3.37 X 10*6/uL (4.40-5.60); RDW 12.2 % (11.5-14.5); WBC 11.23 X 10*3/uL (4.50-10.00)
--- NOTE | 2021-01-01 10:32 | P.PN ---
Subjective Progress Note Date: 01/01/21 Principal diagnosis: Status post intramedullary nailing right intertrochanteric femur fracture Patient evaluated at bedside, resting comfortably. Discussed with the patient he needs to get out of bed and start moving. I discussed with nursing today that his goal is to get in the shower and also up in the hospital chair. He denies any headaches, lightheadedness, chest pain or shortness of breath. Objective - Vital Signs Vital signs: Vital Signs Temp 98.4 F 01/01/21 08:00 Pulse 85 01/01/21 09:54 Resp 16 01/01/21 08:00 BP 110/70 01/01/21 08:00 Pulse Ox 93 L 01/01/21 08:00 Intake & Output 12/31/20 01/01/21 01/01/21 18:59 06:59 18:59 Output Total 375 Balance -375 Output: Urine 375 Other: Voiding Method Indwelling Catheter Urinal # Voids 2 - Exam Right lower extremity: Minimal swelling and ecchymosis present. No drainage is present. Patient is able to wiggle the toes and no difficulty, plantar flexion, dorsiflexion, EHL and FHL are intact. Knee extension, knee flexion and hip flexion were difficult due to pain. Calf is soft, no tenderness with palpation. Sensory exam to light touch is intact throughout the extremity, soft tissue touch is diminished on the plantar aspect of the foot due to chronic neuropathy. Dorsalis pedis pulses 2+. - Labs CBC & Chem 7: 01/01/21 05:35 12/30/20 07:44 Labs: Abnormal Lab Results - Last 24 Hours (Table) 12/31/20 12/31/20 12/31/20 Range/Units 09:34 11:22 16:36 WBC (4.50-10.00) X 10*3/uL RBC (4.40-5.60) X 10*6/uL Hgb (13.0-17.0) g/dL Hct (39.6-50.0) % Immature Gran # (0.00-0.04) X 10*3/uL Neutrophils # (1.80-7.70) X 10*3/uL Monocytes # (0.20-1.00) X 10*3/uL POC Glucose (mg/dL) 259 H 222 H (75-99) mg/dL Procalcitonin 0.38 H (0.02-0.09) ng/mL 12/31/20 01/01/21 01/01/21 Range/Units 20:15 05:35 06:45 WBC 11.23 H (4.50-10.00) X 10*3/uL RBC 3.37 L (4.40-5.60) X 10*6/uL Hgb 10.1 L (13.0-17.0) g/dL Hct 30.4 L (39.6-50.0) % Immature Gran # 0.07 H (0.00-0.04) X 10*3/uL Neutrophils # 8.43 H (1.80-7.70) X 10*3/uL Monocytes # 1.41 H (0.20-1.00) X 10*3/uL POC Glucose (mg/dL) 248 H 146 H (75-99) mg/dL Procalcitonin (0.02-0.09) ng/mL Assessment and Plan Assessment: Postoperative day #5 status post right intramedullary nail right intertrochanteric femur fracture with subtrochanteric extension History of recent lumbar decompression with fusion Other medical comorbidities Plan: Pain control, continue with oral medication GI and DVT prophylaxis, continue heparin 5000 units every 12 Wound care instructions: dressing change every 2 days, continue to ice the right hip as needed Weight-bear as tolerated with walker, PT/OT evaluation Discharge planning: Orthopedic standpoint patient is stable for discharge to rehab Time with Patient: Less than 30
[2021-01-01 11:15] LABS: Glucose,Whole Blood 153 mg/dL (75-99)
[2021-01-01 12:47] VITALS: BMI 28.2
[2021-01-01] MEDS: SODIUM CHLORIDE 0.9% 1,000 ML IV SCH (12:53)
[2021-01-01 16:12] LABS: Glucose,Whole Blood 190 mg/dL (75-99)
[2021-01-01] MEDS ORDERED: bisacodyL 10 MG SUPP RECTAL STA (16:21)
--- NOTE | 2021-01-01 16:35 | P.PN ---
Subjective Progress Note Date: 01/01/21 This is a 65-year-old gentleman status post fall admitted with right intertrochanteric fracture status post intramedullary nailing, recent lumbar surgery 12/10 and multiple other medical issues.Reports "sharp" pain with movement. Unable to stand up at bedside yesterday with PT, but sat at at bedside. PT pending for today. T-max 100.2, WBC 12. Maintaining O2 sats in the 90s on room air .Good diet intake, denies nausea vomiting or diarrhea, hyperglycemic. BUN 30, creatinine 1.12. Passing flatus. Denies chest pain, palpitations or increasing shortness of breath. 12/31/2020 reports rough night, did not sleep well. Reports pain about the same. Sleepy this morning reporting periods of confusion, upon awakening he states confused, disoriented; thought he was in [place], at first he [place] he was [place]. Chest x-ray reported cardiomegaly, COPD, chronic interstitial lung disease, vague nodular density in the retroperitoneal region on the left, likely artifact, possibly related to nipple shadow . T-max 100.2, WBC trending up, 12. Maintaining O2 sats in the 90s on room air. Borderline hypotension, mildly elevated renal function, Norvasc discontinued. 01/01/2021. Calcitonin elevated at 0.38, Levaquin initiated. Afebrile, T-max 99.1, labs pending. Pain currently controlled. Passing flatus, no bowel movement. Minimal movement/activity/ambulation. Denies chest pain, pa lpitations or shortness of breath. Reports occasional cough. Objective - Vital Signs Vital signs: Vital Signs Temp 98.9 F 01/01/21 14:00 Pulse 85 01/01/21 14:00 Resp 16 01/01/21 14:00 BP 93/59 01/01/21 14:00 Pulse Ox 93 L 01/01/21 14:00 Intake & Output 12/31/20 01/01/21 01/01/21 18:59 06:59 18:59 Output Total 375 Balance -375 Weight 102.512 kg Output: Urine 375 Other: Voiding Method Indwelling Catheter Urinal # Voids 2 - Exam PHYSICAL EXAMINATION: GENERAL: alert and oriented x3, no acute distress. HEENT: Pupils are round and equally reacting to light. No scleral icterus. No conjunctival pallor. Normocephalic, atraumatic CARDIOVASCULAR: S1 and S2 present. No murmurs, rubs, or gallops. PULMONARY: Bilateral bases diminished with fine bibasilar crackles. ABDOMEN: Soft, nontender, nondistended, normoactive bowel sounds. No palpable organomegaly. EXTREMITIES: Right lower minimal edema, no drainage.No cyanosis, clubbing or pedal edema. NEUROLOGICAL: Gross neurological examination did not reveal any focal deficits. SKIN: Warm and dry, No rashes. - Labs CBC & Chem 7: 01/01/21 05:35 12/30/20 07:44 Labs: Abnormal Lab Results - Last 24 Hours (Table) 12/31/20 12/31/20 12/31/20 Range/Units 09:34 16:36 20:15 WBC (4.50-10.00) X 10*3/uL RBC (4.40-5.60) X 10*6/uL Hgb (13.0-17.0) g/dL Hct (39.6-50.0) % Immature Gran # (0.00-0.04) X 10*3/uL Neutrophils # (1.80-7.70) X 10*3/uL Monocytes # (0.20-1.00) X 10*3/uL POC Glucose (mg/dL) 222 H 248 H (75-99) mg/dL Procalcitonin 0.38 H (0.02-0.09) ng/mL 01/01/21 01/01/21 01/01/21 Range/Units 05:35 06:45 11:14 WBC 11.23 H (4.50-10.00) X 10*3/uL RBC 3.37 L (4.40-5.60) X 10*6/uL Hgb 10.1 L (13.0-17.0) g/dL Hct 30.4 L (39.6-50.0) % Immature Gran # 0.07 H (0.00-0.04) X 10*3/uL Neutrophils # 8.43 H (1.80-7.70) X 10*3/uL Monocytes # 1.41 H (0.20-1.00) X 10*3/uL POC Glucose (mg/dL) 146 H 153 H (75-99) mg/dL Procalcitonin (0.02-0.09) ng/mL 01/01/21 Range/Units 16:11 WBC (4.50-10.00) X 10*3/uL RBC (4.40-5.60) X 10*6/uL Hgb (13.0-17.0) g/dL Hct (39.6-50.0) % Immature Gran # (0.00-0.04) X 10*3/uL Neutrophils # (1.80-7.70) X 10*3/uL Monocytes # (0.20-1.00) X 10*3/uL POC Glucose (mg/dL) 190 H (75-99) mg/dL Procalcitonin (0.02-0.09) ng/mL Assessment and Plan Assessment: Right intertrochanteric fracture, reported prior fall, status post intramedullary nailing History of recent lumbar decompression with fusion Atelectasis Acute metabolic encephalopathy, suspect secondary to atelectasis, opioids. Pro- calcitonin ordered. Diabetes mellitus type 2, uncontrolled, hyperglycemia Diabetic peripheral neuropathy Acute renal failure, azotemia, secondary to intravascular depletion, dehydration Ongoing nicotine dependence, smoking cessation reinforced COPD Chronic interstitial lung disease Plan: Continue on current medication regime ,monitoring and symptomatic treatment. Maintain antibiotics. Labs pending, if improvement in renal function, we will DC IV fluids.Aggressive pulmonary toileting,incentive spirometer reinforced. Increase activity as ordered per orthopedic surgery with assistance from PT. Close monitoring of Accu-Cheks. PT/OT. Pain manag ement/anticoagulation as per orthopedic surgery. Discharge planning in progress for tomorrow to subacute rehab. The impression and plan of care has been dictated as directed. : I performed a history and examination of this patient, discussed the same with the dictator. I agree with the dictator's note ,documented as a scribe. Any additional findings or plans will be noted.
[2021-01-01 17:57] LABS: African American GFR (CKD) 90.5 (60.0-200.0); Anion Gap 8.2 mmol/L (4.00-12.00); Calcium 8.1 mg/dL (8.7-10.3); Carbon Dioxide 22.8 mmol/L (21.6-31.8); Non-African American GFR(CKD) 78.1 (60.0-200.0); Potassium 4.3 mmol/L (3.5-5.5)
[2021-01-01 20:56] LABS: Glucose,Whole Blood 178 mg/dL (75-99)
[2021-01-01] MEDS: LEVOFLOXACIN 750MG-D5W PMX 750 MG in DEXTROSE/WATER 1 150ML.BAG IVPB SCH (21:06)
[2021-01-01] MEDS: INSULIN DETEMIR (LEVEMIR) 100 UNIT/ML SYR SQ SCH (21:11)
[2021-01-02 06:57] LABS: Glucose,Whole Blood 182 mg/dL (75-99)
[2021-01-02 07:32] VITALS: BP 116/97; RESP 16; TEMP 97.6
[2021-01-02] MEDS: buPROPion XL 300 MG TAB.ER.24H PO SCH (08:20)
[2021-01-02] MEDS: LOSARTAN 50 MG TAB PO SCH (08:20)
[2021-01-02] MEDS: oxyCODONE-APAP 7.5-325MG 1 EACH TAB PO PRN (08:20)
[2021-01-02] MEDS: CYCLOBENZAPRINE 5 MG TAB PO SCH (08:20)
[2021-01-02] MEDS: METOPROLOL SUCCINATE (ER) 100 MG TAB.ER.24H PO SCH (08:20)
[2021-01-02] MEDS: FERROUS SULFATE 325 MG TAB PO SCH (08:21)
[2021-01-02] MEDS: GABAPENTIN 400 MG CAP PO SCH (08:21)
[2021-01-02] MEDS: HEPARIN SODIUM,PORCINE/PF 5,000 UNIT/0.5 ML SYRINGE SQ SCH (08:21)
[2021-01-02] MEDS: PANTOPRAZOLE 40 MG TABLET PO SCH (08:21)
[2021-01-02] MEDS: INSULIN ASPART (NovoLOG) 100 UNIT/ML VIAL SQ SCH ×4 (08:21→12:02)
[2021-01-02] MEDS: DOCUSATE 100 MG CAP PO SCH (08:21)
[2021-01-02] MEDS: SENNOSIDES-DOCUSATE SODIUM 1 EACH TAB PO SCH (08:21)
[2021-01-02] MEDS: SYMBICORT 160-4.5 MCG INHALER INHALATION SCH (09:35)
[2021-01-02] MEDS: IPRATROPIUM-ALBUTEROL 3 ML NEB INHALATION SCH ×3 (09:35→16:19)
[2021-01-02 11:06] LABS: Glucose,Whole Blood 229 mg/dL (75-99)
--- NOTE | 2021-01-02 12:03 | P.DS ---
Providers Date of admission: 12/26/20 23:02 Expected date of discharge: 01/02/21 Attending physician: Christoph Cheng MD Consults: 12/27/20 06:36 Consult Physician Routine Consulting Provider: Christoph Cheng Consult Reason/Comments: med Do you want consulting provider notified?: Yes Primary care physician: Debra Rutledge [place] Course: Final Diagnoses: Right intertrochanteric fracture, reported prior fall, status post intramedullary nailing History of recent lumbar decompression with fusion Possible early left-sided pneumonia Atelectasis Acute metabolic encephalopathy, suspect secondary to atelectasis, opioids. Pro- calcitonin ordered. Diabetes mellitus type 2, uncontrolled, hyperglycemia Diabetic peripheral neuropathy Acute renal failure, azotemia, secondary to intravascular depletion, dehydration Ongoing nicotine dependence, smoking cessation reinforced COPD Chronic interstitial lung disease Hospital course:This is a 65-year-old gentleman status post fall admitted with right intertrochanteric fracture status post intramedullary nailing, recent lumbar surgery 12/10 and multiple other medical issues.Reports "sharp" pain with movement. Unable to stand up at bedside yesterday with PT, but sat at at bedside. PT pending for today. T-max 100.2, WBC 12. Maintaining O2 sats in the 90s on room air .Good diet intake, denies nausea vomiting or diarrhea, hyp erglycemic. BUN 30, creatinine 1.12. Passing flatus. Denies chest pain, palpitations or increasing shortness of breath. 12/31/2020 reports rough night, did not sleep well. Reports pain about the s dimple. Sleepy this morning reporting periods of confusion, upon awakening he states confused, disoriented; thought he was in [place], at first he [place] he was [place] bus [place]. Chest x-ray reported cardiomegaly, COPD, chronic interstitial lung disease, vague nodular density in the retroperitoneal region on the left, likely artifact, possibly related to nipple shadow . T-max 100.2, WBC trending up, 12. Maintaining O2 sats in the 90s on room air. Borderline hypotension, mildly elevated renal function, Norvasc discontinued. 01/01/2021. Calcitonin elevated at 0.38, Levaquin initiated. Afebrile, T-max 99.1, labs pending. Pain currently controlled. Passing flatus, no bowel movement. Minimal movement/activity/ambulation. Denies chest pain, palpitations or shortness of breath. Reports occasional cough. Patient needs much encouragement to increase activity. Advised he is not to be staying in his bed. Needs to be up in chair and increase activity, shower. Continue aggressive pulmonary toileting with incentive spirometer reinforced. Antibiotics 3 more days related to suspected early pneumonia on top of atelectasis. Maintaining O2 sats in the 90s on room air. Afebrile. Denies chest pain, palpitations or shortness of breath. Denies lightheadedness dizziness or focal deficits. Significant clinical improvement. Cleared by orthopedic surgery for discharge. Pain management/anticoagulation as per orthopedic surgery. Patient will be discharged to [facility] subacute rehab today in a stable condition with guarded prognosis pending her follow-up chest x-ray. The impression and plan of care has been dictated as directed. : I performed a history and examination of this patient, discussed the same with the dictator. I agree with the dictator's note ,documented as a scribe. Any additional findings or plans will be noted. Patient Condition at Discharge: Stable Plan - Discharge Summary Discharge Rx Participant: No New Discharge Prescriptions: New Cyclobenzaprine [Flexeril] 5 mg PO BID PRN #14 tablet PRN Reason: Muscle Spasm Heparin Sodium,Porcine [Heparin Sodium] 5,000 unit SQ Q12HR #10 vial polyethylene glycoL 3350 [Miralax] 17 gm PO DAILY PRN #3 packet PRN Reason: Constipation oxyCODONE-APAP 7.5-325MG [Percocet 7.5-325 mg] 1 tab PO Q6HR PRN 3 Days #12 tab PRN Reason: Pain Ipratropium-Albuterol Nebulize [Duoneb 0.5 mg-3 mg/3 ml Soln] 3 ml INHALATION RT-QID ml Ipratropium-Albuterol Nebulize [Duoneb 0.5 mg-3 mg/3 ml Soln] 3 ml INHALATION Q4H PRN ml PRN Reason: Shortness Of Breath Or Wheezing Ferrous Sulfate [Iron (65 MG Elemental)] 325 mg PO BID-W/MEALS tab Pantoprazole [Protonix] 40 mg PO DAILY tablet. Budesonide-Formot 160-4.5 Mcg [Symbicort 160-4.5 Mcg Inhaler] 2 puff INHALATION RT-BID puff Amoxicillin/Potassium Clav [Augmentin 875-125 Tablet] 1 tab PO Q12HR 3 Days #6 tab Docusate [Colace] 100 mg PO DAILY PRN #10 capsule PRN Reason: Constipation Gabapentin 800 mg PO TID 3 Days #9 tab Sennosides-Docusate Sodium [Senokot-S] 2 each PO BID tab INSULIN LISPRO (HumaLOG) [humaLOG] 0 unit SQ ACHS #1 vial Continue Losartan Potassium 100 mg PO DAILY Metoprolol Succinate [Toprol XL] 100 mg PO DAILY Fenofibrate Nanocrystallized [Fenofibrate] 145 mg PO DAILY buPROPion HCL [Wellbutrin XL] 300 mg PO DAILY rOPINIRole HCL [Requip] 1 mg PO HS amLODIPine [Norvasc] 5 mg PO DAILY Insulin Glargine,Hum.rec.anlog [Basaglar Kwikpen U-100] 36 unit SQ HS rOPINIRole HCL [Requip] 0.5 mg PO DAILY Dulaglutide [Trulicity] 3 mg SQ [place] Discontinued oxyCODONE-APAP 10-325MG [Percocet 10-325 mg] 1 tab PO QID Gabapentin 800 mg PO TID #90 tab Cyclobenzaprine [Flexeril] 10 mg PO TID #90 tab Naloxegol Oxalate [Movantik] 25 mg PO DAILY PRN PRN Reason: Constipation Discharge Medication List Fenofibrate Nanocrystallized [Fenofibrate] 145 mg PO DAILY 08/01/16 [History] Losartan Potassium 100 mg PO DAILY 08/01/16 [History] Metoprolol Succinate [Toprol XL] 100 mg PO DAILY 08/01/16 [History] Insulin Glargine,Hum.rec.anlog [Basaglar Kwikpen U-100] 36 unit SQ HS 08/13/20 [History] amLODIPine [Norvasc] 5 mg PO DAILY 08/13/20 [History] buPROPion HCL [Wellbutrin XL] 300 mg PO DAILY 08/13/20 [History] rOPINIRole HCL [Requip] 1 mg PO HS 08/13/20 [History] Dulaglutide [Trulicity] 3 mg SQ [place] 12/26/20 [History] rOPINIRole HCL [Requip] 0.5 mg PO DAILY 12/26/20 [History] Amoxicillin/Potassium Clav [Augmentin 875-125 Tablet] 1 tab PO Q12HR 3 Days #6 tab 01/02/21 [Rx] Budesonide-Formot 160-4.5 Mcg [Symbicort 160-4.5 Mcg Inhaler] 2 puff INHALATION RT-BID puff 01/02/21 [Rx] Cyclobenzaprine [Flexeril] 5 mg PO BID PRN #14 tablet 01/02/21 [Rx] Docusate [Colace] 100 mg PO DAILY PRN #10 capsule 01/02/21 [Rx] Ferrous Sulfate [Iron (65 MG Elemental)] 325 mg PO BID-W/MEALS tab 01/02/21 [Rx] Gabapentin 800 mg PO TID 3 Days #9 tab 01/02/21 [Rx] Heparin Sodium,Porcine [Heparin Sodium] 5,000 unit SQ Q12HR #10 vial 01/02/21 [Rx] INSULIN LISPRO (HumaLOG) [humaLOG] 0 unit SQ ACHS #1 vial 01/02/21 [Rx] Ipratropium-Albuterol Nebulize [Duoneb 0.5 mg-3 mg/3 ml Soln] 3 ml INHALATION Q4H PRN ml 01/02/21 [Rx] Ipratropium-Albuterol Nebulize [Duoneb 0.5 mg-3 mg/3 ml Soln] 3 ml INHALATION RT-QID ml 01/02/21 [Rx] Pantoprazole [Protonix] 40 mg PO DAILY tablet. 01/02/21 [Rx] Sennosides-Docusate Sodium [Senokot-S] 2 each PO BID tab 01/02/21 [Rx] oxyCODONE-APAP 7.5-325MG [Percocet 7.5-325 mg] 1 tab PO Q6HR PRN 3 Days #12 tab 01/02/21 [Rx] polyethylene glycoL 3350 [Miralax] 17 gm PO DAILY PRN #3 packet 01/02/21 [Rx] Follow up Appointment(s)/Referral(s): Christoph Cheng MD [STAFF PHYSICIAN] - 1 Week (After DC from subacute rehab) Hermes Hicks DO [Doctor of Osteopathic Medicine] - 01/10/21 8:40 am Activity/Diet/Wound Care/Special Instructions: Chest x-ray pending [facility] Orthopedic discharge instructions: 1. Resume home medications 2. Pain medication as needed 3. Heparin 5000 units every 12 for DVT prophylaxis 4. Okay to shower directly over incisions 5. Weight-bear as tolerated with walker at all times 6. Plan for [facility] at [facility] 1 week CBC,BMP in 3 days Discharge Disposition: TRANSFER TO SNF/ECF
--- NOTE | 2021-01-02 12:46 | XR ---
EXAMINATION TYPE: XR chest 1V portable DATE OF EXAM: 01/02/2021 COMPARISON: 12/30/2020 HISTORY: Follow-up pneumonia TECHNIQUE: Single frontal view of the chest is obtained. FINDINGS: The heart is mildly enlarged. There is underlying suspected COPD and chronic interstitial lung disease with focal infiltrate involving the right lower lobe. No sizable pleural effusion or pne umothorax as visualized. Diffuse osteopenia. IMPRESSION: 1. COPD, cardiomegaly and right lower lobe infiltrate new from prior exam. 2. Persistent retrocardiac nodule on the left unchanged from prior exam.
--- NOTE | 2021-01-02 12:55 | P.PN ---
Subjective Progress Note Date: 01/02/21 Principal diagnosis: Status post intramedullary nailing right intertrochanteric femur fracture Patient evaluated at bedside, resting comfortably. Patient states they really he has been having some left-sided chest pain with deep breaths. He notices more of a sharp pain. He denies any pressure-like feeling in the chest. He states that when he moves and has to exert himself more he notices the discomfort. He denies any headaches, lightheadedness, chest pain or shortness o f breath. Objective - Vital Signs Vital signs: Vital Signs Temp 97.6 F 01/02/21 07:31 Pulse 80 01/02/21 09:45 Resp 16 01/02/21 07:52 BP 116/97 01/02/21 07:31 Pulse Ox 93 L 01/02/21 07:31 Intake & Output 01/01/21 01/02/21 01/02/21 18:59 06:59 18:59 Intake Total 600 750 Output Total 350 Balance 600 750 -350 Weight 102.512 kg Intake: IV 600 600 Sodium Chloride 0.9% 1, 600 600 000 ml @ 50 mls/hr IV . Q20H AISHWARYA Rx#:[id number] Intake, IV Titration 150 Amount Levofloxacin 750Mg-D5w 150 Pmx 750 mg In Dextrose/ Water 1 150ml.bag @ 100 mls/hr IVPB Q24H AISHWARYA Rx#: [id number] Output: Urine 350 Other: Voiding Method Urinal Urinal # Bowel Movements 1 - Exam Right lower extremity: Minimal swelling and ecchymosis present. No drainage is present. Patient is able to wiggle the toes and no difficulty, plantar flexion, dorsiflexion, EHL and FHL are intact. Knee extension, knee flexion and hip flexion were difficult due to pain. Calf is soft, no tenderness with palpation. Sensory exam to light touch is intact throughout the extremity, soft tissue touch is diminished on the plantar aspect of the foot due to chronic neuropathy. Dorsalis pedis pulses 2+. Low back: The silver dressing was changed at bedside. The nylon sutures are in good posi tion and condition. Minimal tenderness with palpation throughout the lumbar spine. No areas of fluctuance appreciated. - Labs CBC & Chem 7: 01/01/21 05:35 01/01/21 05:35 Labs: Abnormal Lab Results - Last 24 Hours (Table) 01/01/21 01/01/21 01/01/21 Range/Units 05:35 16:11 20:54 Sodium 134 L (135-145) mmol/L BUN 30.0 H (9.0-27.0) mg/dL BUN/Creatinine Ratio 30.00 H (12.00-20.00) Ratio Glucose 143 H (70-110) mg/dL POC Glucose (mg/dL) 190 H 178 H (75-99) mg/dL Calcium 8.1 L (8.7-10.3) mg/dL 01/02/21 01/02/21 Range/Units 06:51 11:05 Sodium (135-145) mmol/L BUN (9.0-27.0) mg/dL BUN/Creatinine Ratio (12.00-20.00) Ratio Glucose (70-110) mg/dL POC Glucose (mg/dL) 182 H 229 H (75-99) mg/dL Calcium (8.7-10.3) mg/dL Microbiology - Last 24 Hours (Table) 12/31/20 22:50 Blood Culture - Preliminary Blood No Growth after 24 hours Assessment and Plan Assessment: Postoperative day #6 status post right intramedullary nail right intertrochanteric femur fracture with subtrochanteric extension History of recent lumbar decompression with fusion Other medical comorbidities Plan: Discussed with nursing to contact internal medicine regarding the chest pain issue prior to discharge Pain control, plan for discharge on oral medication GI and DVT prophylaxis, continue heparin 5000 units every 12 Wound care instructions: dressing change every 2 days, continue to ice the right hip as needed Weight-bear as tolerated with walker, PT/OT evaluation Discharge planning: Orthopedic standpoint patient is stable for discharge to rehab Time with Patient: Less than 30
[2021-01-02 16:20] VITALS: PULSE 80
[2021-01-02] MEDS ORDERED: LEVOFLOXACIN 750 MG TAB PO SCH (21:00)
[2021-01-02 22:05] LABS: Hemoglobin A1C 7.6 % (4.0-6.0)
== END 2021-01-02 18:04 | DRG 480 ==
LOC: EC 21:29 → 4SSUR 23:02
PROVIDERS: ADMIT Family Medicine; ATTEND Family Medicine
PROC: 0QS636Z Reposition Right Upper Femur with Intramedullary Internal Fixation Device, Percutaneous Approach (ICD-10-PCS; principal; 2020-12-27 12:50)
DX: S72.141A Displaced intertrochanteric fracture of right femur, initial encounter for closed fracture (principal); J18.9 Pneumonia, unspecified organism; G93.41 Metabolic encephalopathy; J44.0 Chronic obstructive pulmonary disease with (acute) lower respiratory infection; J98.11 Atelectasis; E11.42 Type 2 diabetes mellitus with diabetic polyneuropathy; I95.9 Hypotension, unspecified; E11.65 Type 2 diabetes mellitus with hyperglycemia; Z79.4 Long term (current) use of insulin; E86.0 Dehydration; Z20.822 Contact with and (suspected) exposure to COVID-19; E86.9 Volume depletion, unspecified; F32.9 Major depressive disorder, single episode, unspecified; I10 Essential (primary) hypertension; G89.29 Other chronic pain; M19.90 Unspecified osteoarthritis, unspecified site; M25.512 Pain in left shoulder; M54.9 Dorsalgia, unspecified; R79.89 Other specified abnormal findings of blood chemistry; F17.210 Nicotine dependence, cigarettes, uncomplicated; Z71.6 Tobacco abuse counseling; Z79.899 Other long term (current) drug therapy; Z79.891 Long term (current) use of opiate analgesic; Z87.820 Personal history of traumatic brain injury; Z87.828 Personal history of other (healed) physical injury and trauma; Z98.1 Arthrodesis status; Z98.890 Other specified postprocedural states; W01.0XXA Fall on same level from slipping, tripping and stumbling without subsequent striking against object, initial encounter; Y92.009 Unspecified place in unspecified non-institutional (private) residence as the place of occurrence of the external cause; Z88.8 Allergy status to other drugs, medicaments and biological substances
CPT/HCPCS: 70450; 71045; 72100; 72125; 72170; 73502; 80048; 80053; 81003; 82550; 83036; 83605; 83735; 83880; 84100; 84145; 84484; 85025; 85610; 85730; 87040; 87635; 93005; 94640; 96374; 99285

== ENCOUNTER → 2021-01-08 | Outpatient (CLI) | payer MEDICARE, OTHER ==
--- NOTE | 2021-01-08 17:54 | XR ---
EXAMINATION TYPE: XR lumbar spine 2 or 3V DATE OF EXAM: 01/08/2021 COMPARISON: 12/27/2020 HISTORY: Laminectomy TECHNIQUE: 3 views FINDINGS: There is posterior surgery at L4-5. Vertebra have normal alignment. There is 25% anterior w edging of L4 vertebral body unchanged. There is 50% wedging of L1 vertebral body with vertebroplasty unchanged. I see no acute fracture. Sacroiliac joints appear intact. IMPRESSION: Fractures of L1 and L4 without change.
--- NOTE | 2021-01-08 17:58 | XR ---
EXAMINATION TYPE: XR femur RT DATE OF EXAM: 01/08/2021 COMPARISON: 12/27/2020 HISTORY: Postop femur TECHNIQUE: 4 views FINDINGS: There is intramedullary kale with transverse screw fixing the intertrochanteric fracture of the right femur. Fragments are in anatomic position. There are lateral skin molly. Hip joint is martínez tomic. Knee joint appears anatomic. IMPRESSION: Right hip surgery. No complicating process seen. No change in position compared to old ex am.
== END | disposition home or self-care (01) ==
LOC: RADXRMAIN 16:39
PROVIDERS: ATTEND Orthopaedic Surgery
DX: Z98.890 Other specified postprocedural states (principal); S32.019A Unspecified fracture of first lumbar vertebra, initial encounter for closed fracture; S32.049A Unspecified fracture of fourth lumbar vertebra, initial encounter for closed fracture
CPT/HCPCS: 72100

== ENCOUNTER → 2021-11-28 | Outpatient (CLI) | payer MEDICARE, OTHER ==
--- NOTE | 2021-11-30 10:58 | NM ---
EXAMINATION TYPE: NM bone scan whole body DATE OF EXAM: 11/28/2021 COMPARISON: Right femur radiograph 01/08/2021 HISTORY: 66-year-old male right shoulder pain, broke right femur last year. Osteoarthritis throughout the body. Technique: Delayed whole-body scanning was performed following the injection of 23.5 mCi Tc 99m MDP. Images acquired 4 hours post injection. FINDINGS: Activity along the intertrochanteric region of the proximal right femur compatible with site of previ ous fracture. Small foci on either side distal right femur compatible with site of the distal interlo cking screw. Mild increased degenerative tracer activity posterior elements lower lumbar spine. Also mild increase d tracer activity at both shoulders and sternoclavicular joints, fairly symmetric side to side. IMPRESSION: 1. Mild degenerative tracer activity in both shoulders and sternoclavicular joints appear symmetric s viry to side. 2. Linear activity at the right intertrochanteric region at the site of previous fracture fixation. C onsider radiographic follow-up to ensure appropriate healing. 3. No scintigraphic evidence for osseous metastatic disease.
== END | disposition home or self-care (01) ==
LOC: RADNMMAIN 10:12
PROVIDERS: ATTEND Family Medicine
DX: M19.012 Primary osteoarthritis, left shoulder (principal); M19.011 Primary osteoarthritis, right shoulder; M19.09 Primary osteoarthritis, other specified site
CPT/HCPCS: 78306; A9503

== ENCOUNTER → 2022-03-18 | Outpatient (CLI) | payer OTHER ==
--- NOTE | 2022-03-18 12:04 | FL ---
EXAMINATION TYPE: FL barium swallow w video DATE OF EXAM: 03/18/2022 COMPARISON: NONE HISTORY: Dysphasia TECHNIQUE: Fluoroscopy. FINDINGS: Fluoroscopic guidance was provided for the procedure performed in conjunction with the [facility] pathology department. Please see complete report forthcoming from the Speech Pathology departmen t. Various consistencies from thin liquid to solids were administered. Fluoroscopy time 54 seconds. Number of images: 0. No aspiration or penetration was evident. No significant pooling was observed in the vallecula. There was normal propulsion of the bolus. There is a large anterior vertebral body spurs at C5. There appears to be anterior cervical fusion of C5-6. IMPRESSION: 1. No aspiration or penetration. 2. Large spur at the anterior C5
== END | disposition home or self-care (01) ==
LOC: RADFLMAIN 10:49
PROVIDERS: ATTEND Family Medicine
DX: R13.10 Dysphagia, unspecified (principal)
CPT/HCPCS: 74230

== ENCOUNTER 2022-06-24 11:17 | Emergency (ER) | payer OTHER ==
[2022-06-24 11:35] VITALS: RESP 18; TEMP 97.7
[2022-06-24] MEDS ORDERED: SODIUM CHLORIDE 0.9% 500 ML 500 ML IV STA (11:52)
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
[2022-06-24 13:15] LABS: Basophils # (A) 0.1 k/uL (0-0.2); Basophils % (A) 1 %; Eosinophils # (A) 0.2 k/uL (0-0.7); Eosinophils % (A) 3 %; HCT 41.6 % (39.0-53.0); Lymphocytes # (A) 1.7 k/uL (1.0-4.8); Lymphocytes % (A) 23 %; MCH 31.3 pg (25.0-35.0); MCHC 33.8 g/dL (31.0-37.0); MCV 92.7 fL (80.0-100.0); Mean Platelet Volume 9.9; Monocytes # (A) 0.5 k/uL (0-1.0); Monocytes % (A) 7 %; Neutrophils # (A) 4.8 k/uL (1.3-7.7); Neutrophils % (A) 65 %; Platelet Count 302 k/uL (150-450); RBC 4.48 m/uL (4.30-5.90); RDW 14.3 % (11.5-15.5); WBC 7.3 k/uL (3.8-10.6)
[2022-06-24 13:27] LABS: Albumin 3.8 g/dL (3.5-5.0); Calcium 8.9 mg/dL (8.4-10.2); Magnesium 1.9 mg/dL (1.6-2.3); Partial Thromboplastin Time 25.8 sec (22.0-30.0); Potassium 4.1 mmol/L (3.5-5.1); Prothrombin Time 10.2 sec (9.0-12.0); Total Bilirubin 1.1 mg/dL (0.2-1.3); Total Protein 6.3 g/dL (6.3-8.2)
[2022-06-24] MEDS ORDERED: SODIUM CHLORIDE 0.9% 1,000 ML IV ONE (13:34)
--- NOTE | 2022-06-24 13:44 | XR ---
EXAMINATION TYPE: XR chest 2V DATE OF EXAM: 06/24/2022 COMPARISON: Chest x-ray January 02, 2021 HISTORY: Dyspnea. TECHNIQUE: Frontal and lateral views of the chest are obtained. FINDINGS: There is chronic parenchyma change bilaterally without suspicious focal air space opacity, pleural effusion, or pneumothorax seen. The cardiac silhouette size is enlarged. The osseous stru ctures are demineralized. IMPRESSION: Chronic emphysematous change and cardiomegaly without acute pulmonary process.
[2022-06-24 14:15] VITALS: BP 120/60; PULSE 70
== END 2022-06-24 15:01 | disposition home or self-care (01) ==
LOC: EC 11:17
DX: R06.02 Shortness of breath (principal); E86.0 Dehydration; E11.9 Type 2 diabetes mellitus without complications; I10 Essential (primary) hypertension; F32.A Depression, unspecified; F17.210 Nicotine dependence, cigarettes, uncomplicated; Z79.4 Long term (current) use of insulin; Z79.899 Other long term (current) drug therapy; Z86.16 Personal history of COVID-19; Z88.8 Allergy status to other drugs, medicaments and biological substances
CPT/HCPCS: 36415; 71046; 80053; 83735; 85025; 85610; 85730; 93005; 99285

== ENCOUNTER 2022-12-06 19:48 | Emergency (ER) | payer OTHER ==
[2022-12-06] MEDS ORDERED: SODIUM CHLORIDE 0.9% 500 ML 500 ML IV STA (19:52)
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
[2022-12-06 19:59] VITALS: RESP 16; TEMP 97.7
[2022-12-06 20:33] LABS: Basophils % (A) 0 %; Eosinophils # (A) 0.3 k/uL (0-0.7); Eosinophils % (A) 4 %; HCT 38.2 % (39.0-53.0); HGB 12.9 gm/dL (13.0-17.5); Lymphocytes # (A) 1.3 k/uL (1.0-4.8); Lymphocytes % (A) 17 %; MCHC 33.8 g/dL (31.0-37.0); MCV 91.7 fL (80.0-100.0); Mean Platelet Volume 7.8; Monocytes # (A) 0.6 k/uL (0-1.0); Monocytes % (A) 7 %; Neutrophils # (A) 5.3 k/uL (1.3-7.7); Neutrophils % (A) 69 %; Platelet Count 248 k/uL (150-450); RBC 4.17 m/uL (4.30-5.90); RDW 12.9 % (11.5-15.5); WBC 7.7 k/uL (3.8-10.6)
[2022-12-06 20:53] LABS: Albumin 3.7 g/dL (3.5-5.0); Calcium 8.9 mg/dL (8.4-10.2); Magnesium 1.8 mg/dL (1.6-2.3); Partial Thromboplastin Time 24.7 sec (22.0-30.0); Phosphorus 3.5 mg/dL (2.5-4.5); Potassium 4.7 mmol/L (3.5-5.1); Prothrombin Time 10.9 sec (9.0-12.0); Total Bilirubin 1.2 mg/dL (0.2-1.3); Total Protein 5.9 g/dL (6.3-8.2)
[2022-12-06] MEDS ORDERED: SODIUM CHLORIDE 0.9% 1,000 ML IV STA (21:23)
[2022-12-06 22:56] VITALS: BP 122/85; PULSE 72
== END 2022-12-06 23:05 | disposition home or self-care (01) ==
LOC: EC 19:48
DX: R53.1 Weakness (principal); E86.0 Dehydration; E11.9 Type 2 diabetes mellitus without complications; I10 Essential (primary) hypertension; M19.90 Unspecified osteoarthritis, unspecified site; F32.A Depression, unspecified; F17.200 Nicotine dependence, unspecified, uncomplicated; Z88.8 Allergy status to other drugs, medicaments and biological substances; Z86.16 Personal history of COVID-19; Z79.4 Long term (current) use of insulin; Z79.899 Other long term (current) drug therapy
CPT/HCPCS: 36415; 80053; 83735; 83880; 84100; 84484; 85025; 85610; 85730; 93005; 96360; 96361; 99285

== ENCOUNTER → 2023-03-02 | Outpatient (CLI) | payer OTHER ==
--- NOTE | 2023-03-02 10:31 | US ---
EXAMINATION TYPE: US abdomen complete DATE OF EXAM: 03/02/2023 COMPARISON: CLINICAL INDICATION: Male, 67 years old with history of I71.4 ABDOMINAL AORTIC ANEURYSM; Per order, david live with 2021 study- No 2021 study here at [facility]. Patient states he has a AAA. Per order, abdomen and Ao. TECHNIQUE: Multiple sonographic images of the abdomen are obtained. FINDINGS: EXAM MEASUREMENTS: Liver Length: 19.5 cm Gallbladder Wall: 0.3 cm CBD: 0.9 cm Spleen: 12.9 cm Right Kidney: 10.1 x 5.1 x 5.6 cm Left Kidney: 10.8 x 5.9 x 5.5 cm BASKETBALL COACH NOTES: Limited due to bowel gas Pancreas: Head and tail obscured by overlying bowel gas Liver: Enlarged in size. Gallbladder: Multiple mobile echogenic foci with shadowing Evidence for sonographic Zendejas's sign: neg CBD: Appears dilated Spleen: Upper limits of normal in size Right Kidney: No hydronephrosis or masses seen Left Kidney: No hydronephrosis or masses seen Upper IVC: wnl Abd Aorta: Mid portion obscured by overlying bowel gas. No AAA visualized in portions seen. Proxim al appears ectatic and limited visualization due to bowel gas. The head and tail of the pancreas is obscured by overlying bowel gas. The body is unremarkable. Hepat omegaly without focal lesion identified. The midportion of the abdominal aorta is obscured by overlyi ng bowel gas. The proximal portion appears ectatic measuring 2.7 cm. The upper IVC is within normal l imits. No hydronephrosis, solid masses, or upper thighs involving both kidneys. Cortical medullary di fferentiation is maintained. The spleen is at the upper limits of normal. Common bile duct is mildly dilated measuring 9 mm. Cholelithiasis is demonstrated without pericholecystic fluid or wall thickeni ng. Per remittance clerk, negative sonographic Zendejas sign. IMPRESSION: 1. Cholelithiasis without evidence for acute cholecystitis. 2. Mild common bile duct dilatation measuring up to 9 mm. Correlation with obstructive biliary labs is recommended and consideration for MRCP. 3. Ectasia of the proximal abdominal aorta measuring up to 2.7 cm. 4. Hepatomegaly.
== END | disposition home or self-care (01) ==
LOC: RADUSWWP 09:08
PROVIDERS: ATTEND Emergency Medicine
DX: K80.20 Calculus of gallbladder without cholecystitis without obstruction (principal); K83.8 Other specified diseases of biliary tract; R16.0 Hepatomegaly, not elsewhere classified; I77.811 Abdominal aortic ectasia
CPT/HCPCS: 76700

== ENCOUNTER → 2023-04-05 | Outpatient (CLI) | payer OTHER ==
--- NOTE | 2023-04-05 13:21 | CTL ---
EXAMINATION TYPE: CT Low Dose Lung DATE OF EXAM ORDERED: 04/05/2023 COMPARISON: 03/10/2022 HISTORY: . Low Dose CT Lung Screening CT DLP: 139.[address] CTDI: 3.7 mGy IV CONTRAST USED: None. SCREENING VISIT: First visit COMPARISON: None. TECHNIQUE: Low dose computed tomography scan was performed through the chest at 1 millimeter thick se ctions and reconstructed images in the coronal plane at [address] DIAGNOSTIC QUALITY: Satisfactory FINDINGS: LUNG NODULES: Scattered peripheral calcified granulomas measuring up to 2 mm. No concerning pulmonar y nodule greater than 4 mm in size. LUNGS: COPD: Severity: Mild Fibrosis: Severity:None Lymph nodes: None Other findings: None RIGHT PLEURAL SPACE: Effusion: None Calcification: None Thickening: None Pneumothorax: None LEFT PLEURAL SPACE: Effusion: None Calcification: None Thickening: None Pneumothorax: None HEART: Heart Size: Mildly enlarged Coronary calcification: Mild Pericardial effusion: None OTHER FINDINGS: Upper abdomen: No significant abnormality Bony thorax: Degenerative changes Supraclavicular region: No significant abnormalityOther: No significant abnormalityI IMPRESSION: Benign FOLLOW UP CT CHEST RECOMMENDATION: Follow-up screening in one year CT LUNG RAD: LUNG RAD CATEGORY Lung-Rad 2 Benign Appearance or Behavior
== END | disposition home or self-care (01) ==
LOC: RADCTMAIN 12:45
PROVIDERS: ATTEND Nurse Practitioner Family
DX: Z12.2 Encounter for screening for malignant neoplasm of respiratory organs (principal); F17.210 Nicotine dependence, cigarettes, uncomplicated
CPT/HCPCS: 71271

== ENCOUNTER 2023-05-27 14:56 | Emergency (ER) | payer OTHER ==
[2023-05-27 15:17] VITALS: TEMP 98.4
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
[2023-05-27 16:30] LABS: Basophils % (A) 0 %; Eosinophils # (A) 0.2 k/uL (0-0.7); Eosinophils % (A) 2 %; HCT 39.5 % (39.0-53.0); HGB 13.5 gm/dL (13.0-17.5); Lymphocytes # (A) 1.3 k/uL (1.0-4.8); Lymphocytes % (A) 13 %; MCH 31.6 pg (25.0-35.0); MCHC 34.2 g/dL (31.0-37.0); MCV 92.5 fL (80.0-100.0); Mean Platelet Volume 7.8; Monocytes # (A) 0.5 k/uL (0-1.0); Monocytes % (A) 5 %; Neutrophils # (A) 8.1 k/uL (1.3-7.7); Neutrophils % (A) 79 %; Platelet Count 278 k/uL (150-450); RBC 4.27 m/uL (4.30-5.90); RDW 12.6 % (11.5-15.5); WBC 10.3 k/uL (3.8-10.6)
[2023-05-27 16:46] LABS: ALT 19 U/L (4-49); AST 23 U/L (17-59); African American GFR (CKD) 56 (>60 ml/min/1.73 sqM); Albumin 3.8 g/dL (3.5-5.0); Alkaline Phosphatase 70 U/L (38-126); Anion Gap 9 mmol/L; Blood Urea Nitrogen 30 mg/dL (9-20); Calcium 9.1 mg/dL (8.4-10.2); Carbon Dioxide 23 mmol/L (22-30); Chloride 106 mmol/L (98-107); Glucose 236 mg/dL (74-99); Magnesium 1.8 mg/dL (1.6-2.3); Non-African American GFR(CKD) 48 (>60 ml/min/1.73 sqM); Potassium 4.1 mmol/L (3.5-5.1); Sodium 138 mmol/L (137-145); Total Bilirubin 0.9 mg/dL (0.2-1.3); Total Protein 6.3 g/dL (6.3-8.2)
[2023-05-27 16:53] LABS: Prothrombin Time 10.9 sec (10.0-12.5)
--- NOTE | 2023-05-27 17:00 | XR ---
EXAMINATION TYPE: XR chest 1V portable DATE OF EXAM: 05/27/2023 COMPARISON: 06/24/2022 INDICATION: Syncope TECHNIQUE: Single frontal view of the chest is obtained semiupright position. FINDINGS: The heart size is mildly prominent. The pulmonary vasculature is normal. The lungs are clear. IMPRESSION: 1. Mild cardiomegaly.
[2023-05-27 17:01] LABS: Partial Thromboplastin Time 19.6 sec (22.0-30.0)
--- NOTE | 2023-05-27 17:17 | CT ---
EXAMINATION TYPE: CT brain cspine wo con DATE OF EXAM: 05/27/2023 COMPARISON: 12/26/2020 HISTORY: syncope and fall. CT DLP: 1483.2 mGycm. Automated Exposure Control for Dose Reduction was Utilized. TECHNIQUE: CT scan of the head and cervical spine are performed without contrast. FINDINGS: There is no acute intracranial hemorrhage, mass effect, or midline shift identified. The v entricles and sulci are within normal limits in size. The globes are intact and the visualized sinuse s are clear. Cervical spine is visualized in its entirety from C1 through upper thoracic levels and demonstrates s atisfactory alignment without evidence of acute fracture or dislocation. Prevertebral soft tissue ap pears within normal limits. The C1-C2 articulation is unremarkable. IMPRESSION: 1. No acute fracture or dislocation evident in the cervical spine. 2. No acute intracranial hemorrhage, mass effect, or midline shift.
[2023-05-27 18:17] LABS: Appearance,Urine Clear (Clear); Bilirubin,Urine Negative (Negative); Blood,Urine Negative (Negative); Color,Urine Light Yellow; Glucose,Urine (UA) 4+ (Negative); Ketones,Urine Negative (Negative); Leukocyte Esterase,Urine Negative (Negative); Nitrite,Urine Negative (Negative); Protein,Urine Negative (Negative); Specific Gravity,Urine 1.013 (1.001-1.035); Urobilinogen,Urine <2.0 mg/dL (<2.0)
[2023-05-27 18:38] VITALS: BP 141/73; PULSE 74; RESP 18
== END 2023-05-27 18:49 | disposition home or self-care (01) ==
LOC: EC 14:56
DX: R42 Dizziness and giddiness (principal); I44.0 Atrioventricular block, first degree; E11.9 Type 2 diabetes mellitus without complications; I10 Essential (primary) hypertension; M19.90 Unspecified osteoarthritis, unspecified site; F32.A Depression, unspecified; Z88.8 Allergy status to other drugs, medicaments and biological substances; Z79.4 Long term (current) use of insulin; Z79.899 Other long term (current) drug therapy; W18.30XA Fall on same level, unspecified, initial encounter
CPT/HCPCS: 36415; 70450; 71045; 72125; 80053; 81003; 83735; 84484; 85025; 85610; 85730; 93005; 99285

== ENCOUNTER → 2024-01-04 | Outpatient (CLI) | payer OTHER ==
--- NOTE | 2024-01-04 15:10 | XR ---
EXAMINATION TYPE: XR lumbar spine 2 or 3V DATE OF EXAM: 01/04/2024 12:47 PM CLINICAL INDICATION:Male, 68 years old with history of M25.551 M54.5 PAIN IN RIGHT HIP LOW BACK PAIN, UNS; [facility] COMPARISON: 01/08/2021 TECHNIQUE: XR lumbar spine 2 or 3V - Frontal, lateral and coned in L5-S1 lateral views of the spine. FINDINGS: Postsurgical changes with L1 vertebroplasty cement. Fixation device between L4 and L5 spino us processes. There is severe degeneration with osteophyte formation and joint space narrowing. No ev idence of any acute osseous pathology. Atherosclerosis of the arterial vasculature. Wedging of the L 4 vertebral body not on similar from prior. IMPRESSION: 1. No acute fracture. 2. Moderate to severe multilevel disc degeneration.
--- NOTE | 2024-01-04 15:11 | XR ---
EXAMINATION TYPE: XR Hip RT and AP Pelvis DATE OF EXAM: 01/04/2024 12:47 PM CLINICAL INDICATION:Male, 68 years old with history of M25.551 M54.5 PAIN IN RIGHT HIP LOW BACK PAIN, UNS; [facility] COMPARISON: 12/27/2020 ] TECHNIQUE: XR Hip RT and AP Pelvis; hip was examined in the frontal and lateral projections and a AP pelvis. FINDINGS: Right hip fixation hardware appears intact. Degeneration with osteophyte formation joint sp [place] narrowing bilaterally. No evidence for acute process, joint dislocation or significant soft tissu e swelling. Atherosclerosis of the arterial vasculature. IMPRESSION: 1. No acute process. 2. Moderate bilateral hip osteoporosis. 3. Right hip fixation hardware appears intact.
== END | disposition home or self-care (01) ==
LOC: RADXRMAIN 11:49
PROVIDERS: ATTEND Nurse Practitioner
DX: M51.36 Other intervertebral disc degeneration, lumbar region (principal); M81.0 Age-related osteoporosis without current pathological fracture
CPT/HCPCS: 72100; 73502

== ENCOUNTER 2024-03-22 10:12 | Observation (INO) | payer OTHER ==
[2024-03-22 10:19] VITALS: TEMP 98.2
[2024-03-22 10:56] LABS: Basophils % (A) 0 %; Eosinophils # (A) 0.3 k/uL (0-0.7); Eosinophils % (A) 5 %; HCT 40.7 % (39.0-53.0); HGB 13.4 gm/dL (13.0-17.5); Lymphocytes # (A) 1.3 k/uL (1.0-4.8); Lymphocytes % (A) 20 %; MCH 31.2 pg (25.0-35.0); MCHC 32.9 g/dL (31.0-37.0); MCV 94.9 fL (80.0-100.0); Mean Platelet Volume 8.7; Monocytes # (A) 0.5 k/uL (0-1.0); Monocytes % (A) 8 %; Neutrophils # (A) 4.4 k/uL (1.3-7.7); Neutrophils % (A) 65 %; Platelet Count 209 k/uL (150-450); RBC 4.29 m/uL (4.30-5.90); RDW 13.6 % (11.5-15.5); WBC 6.8 k/uL (3.8-10.6)
--- NOTE | 2024-03-22 11:14 | XR ---
EXAMINATION TYPE: XR chest 2V DATE OF EXAM: 03/22/2024 COMPARISON: 05/27/2023 TECHNIQUE: PA and lateral views submitted. HISTORY: Weakness FINDINGS: Bibasilar subsegmental consolidation. No pleural effusion or pneumothorax.. Heart is enlarged. Underl warner COPD. No overt failure.. Osseous structures demonstrate hypertrophic and degenerative changes of the spine. IMPRESSION: 1. Basilar subsegmental atelectasis versus early infiltrate. 2. Cardiomegaly with changes of COPD.
[2024-03-22 11:23] LABS: ALT 13 U/L (4-49); AST 24 U/L (17-59); African American GFR (CKD) 61 (>60 ml/min/1.73 sqM); Albumin 3.7 g/dL (3.5-5.0); Alkaline Phosphatase 98 U/L (38-126); Anion Gap 8 mmol/L; Blood Urea Nitrogen 19 mg/dL (9-20); Calcium 9.3 mg/dL (8.4-10.2); Carbon Dioxide 22 mmol/L (22-30); Chloride 109 mmol/L (98-107); Glucose 170 mg/dL (74-99); Magnesium 1.9 mg/dL (1.6-2.3); Non-African American GFR(CKD) 53 (>60 ml/min/1.73 sqM); Potassium 4.1 mmol/L (3.5-5.1); Sodium 139 mmol/L (137-145); Total Bilirubin 1.2 mg/dL (0.2-1.3)
[2024-03-22 11:40] LABS: Partial Thromboplastin Time 24.3 sec (22.0-30.0); Prothrombin Time 11.2 sec (10.0-12.5)
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
[2024-03-22] MEDS ORDERED: NALOXONE 0.4 MG/ML 1 ML VIAL IV PRN (14:02)
[2024-03-22] MEDS: SODIUM CHLORIDE 0.9% 1,000 ML IV SCH (14:26)
[2024-03-22] MEDS ORDERED: FLUTICASONE NASAL 50MCG/SPRAY 16GM BTL EA NOSTRIL PRN (16:00)
[2024-03-22] MEDS ORDERED: DEXTROSE 50% SYRINGE 50 ML IVP PRN ×2 (16:03)
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
[2024-03-22 16:53] LABS: Appearance,Urine Clear (Clear); Bilirubin,Urine Negative (Negative); Blood,Urine Negative (Negative); Color,Urine Light Yellow; Glucose,Urine (UA) 4+ (Negative); Ketones,Urine Negative (Negative); Leukocyte Esterase,Urine Negative (Negative); Nitrite,Urine Negative (Negative); PH, Urine 5.5 (5.0-8.0); Protein,Urine Trace (Negative); Specific Gravity,Urine 1.027 (1.001-1.035); Urobilinogen,Urine <2.0 mg/dL (<2.0)
[2024-03-22 17:10] LABS: Cocaine Screen,Urine Not Detected (NotDetected); Phencyclidine Screen,Urine Not Detected (NotDetected); Urn Cannabinoid Scrn Not Detected (NotDetected)
[2024-03-22 17:11] LABS: Amphetamine Screen,Urine Not Detected (NotDetected); Barbiturate Screen,Urine Not Detected (NotDetected); Benzodiazepines Screen,Urine Detected (NotDetected); Methadone Screen, Urine Not Detected (NotDetected); Opiate Screen,Urine Detected (NotDetected); Oxycodone Screen, Urine Not Detected (NotDetected); Tricyclic Antidepressant,Urine Not Detected (NotDetected)
[2024-03-22 17:16] LABS: Glucose,Whole Blood 156 mg/dL (70-110)
[2024-03-22] MEDS: INSULIN ASPART (NovoLOG) 100 UNIT/ML VIAL SQ SCH (17:21)
--- NOTE | 2024-03-22 17:56 | P.DS ---
Providers Date of admission: 03/22/24 14:03 Attending physician: Denis Esqueda MD Primary care physician: Rick Ibarra MD Hospital Course: Discharge Diagnosis: Accidental ingestion of a Xanax pill Acute encephalopathy secondary to the above Diabetes mellitus Diabetic neuropathy Chronic pain Hospital Course: Patient is a 68-year-old male with a past medical history of diabetes mellitus type 2, diabetic peripheral neuropathy, COPD, chronic interstitial lung disease, lymphedema who was brought in for weakness and lethargy. Per EMS patient had accidentally taken Xanax that was not prescribed to him. In the ED patient was somnolent and difficult to arouse so he was referred for admission. When I went to go see the patient he was awake and alert and answering questions appropriately. Patient states that his PCP had increased his Lasix dose and he was expecting to get it in the mail. He states that he received a prescription package yesterday that had his name and address on it. He states that he did not look on the prescription bottle to see what the medication was or to whom it was was prescribed to. He states that he took the medication this morning thinking it was his increased dose of Lasix. He later realized that it was Xanax that had been prescribed to a different patient. His home care nurse found him today on the ground and called EMS. Patient states that he was trying to open the door and had fallen due to weakness. Patient's mental status had already resolved by the time I went to go see him. I had the nurse ambulate him and patient did well. Patient is amenable to going home. Patient deemed stable for discharge. Patient instructed to return the bottle of Xanax to pharmacy so that it can properly get disposed Please see my H&P for physical exam A total of [33] minutes of time were spent preparing this complex discharge summary . Patient Condition at Discharge: Stable Plan - Discharge Summary New Discharge Prescriptions: Continue Losartan Potassium 100 mg PO DAILY Metoprolol Succinate [Toprol XL] 100 mg PO DAILY Fenofibrate Nanocrystallized [Fenofibrate] 145 mg PO DAILY rOPINIRole HCL [Requip] 1 mg PO HS Insulin Glargine,Hum.rec.anlog [Basaglar Kwikpen U-100] 25 unit SQ HS Celecoxib [CeleBREX] 100 mg PO BID Empagliflozin [Jardiance] 10 mg PO DAILY Fluticasone Propionate [Flonase Allergy Relief] 1 spray EA NOSTRIL DAILY PRN PRN Reason: Congestion HYDROcodone/APAP 7.5-325MG [[place] 7.5-325] 1 - 2 tab PO BID PRN PRN Reason: Pain Menthol [Biofreeze] 1 applic TOPICAL BID PRN PRN Reason: Pain methocarbamoL 1,000 mg PO TID Gabapentin 800 mg PO TID 3 Days #9 tab Buprenorphine [Buprenorphine 5 MCG/HR] 1 patch TRANSDERM MO Diclofenac Sodium Gel [Voltaren 1% Gel] 1 applic TOPICAL TID PRN PRN Reason: Pain Furosemide [Lasix] 20 mg PO DAILY Loratadine [Claritin] 10 mg PO DAILY Multivitamins, Thera [Multivitamin (formulary)] 1 tab PO DAILY Semaglutide [Ozempic] 1 mg SQ Q7D Discharge Medication List Fenofibrate Nanocrystallized [Fenofibrate] 145 mg PO DAILY 08/01/16 [History] Losartan Potassium 100 mg PO DAILY 08/01/16 [History] Metoprolol Succinate [Toprol XL] 100 mg PO DAILY 08/01/16 [History] Insulin Glargine,Hum.rec.anlog [Basaglar Kwikpen U-100] 25 unit SQ HS 08/13/20 [History] rOPINIRole HCL [Requip] 1 mg PO HS 08/13/20 [History] Gabapentin 800 mg PO TID 3 Days #9 tab 01/02/21 [Rx] Buprenorphine [Buprenorphine 5 MCG/HR] 1 patch TRANSDERM MO 03/22/24 [History] Celecoxib [CeleBREX] 100 mg PO BID 03/22/24 [History] Diclofenac Sodium Gel [Voltaren 1% Gel] 1 applic TOPICAL TID PRN 03/22/24 [History] Empagliflozin [Jardiance] 10 mg PO DAILY 03/22/24 [History] Fluticasone Propionate [Flonase Allergy Relief] 1 spray EA NOSTRIL DAILY PRN 03/22/24 [History] Furosemide [Lasix] 20 mg PO DAILY 03/22/24 [History] HYDROcodone/APAP 7.5-325MG [[place] 7.5-325] 1 - 2 tab PO BID PRN 03/22/24 [History] Loratadine [Claritin] 10 mg PO DAILY 03/22/24 [History] Menthol [Biofreeze] 1 applic TOPICAL BID PRN 03/22/24 [History] Multivitamins, Thera [Multivitamin (formulary)] 1 tab PO DAILY 03/22/24 [History] Semaglutide [Ozempic] 1 mg SQ Q7D 03/22/24 [History] methocarbamoL 1,000 mg PO TID 03/22/24 [History] Follow up Appointment(s)/Referral(s): Rick Ibarra MD [Primary Care Provider] - 1-2 days Discharge Disposition: HOME SELF-CARE
[2024-03-22 18:46] VITALS: BP 140/64; PULSE 58; RESP 16
[2024-03-22] MEDS ORDERED: INSULIN DETEMIR (LEVEMIR) 100 UNIT/ML SYR SQ SCH (21:00)
[2024-03-23] MEDS ORDERED: LORATADINE 10 MG TAB PO SCH (09:00)
[2024-03-23] MEDS ORDERED: FENOFIBRATE 160 MG TAB PO SCH (09:00)
[2024-03-23] MEDS ORDERED: MULTIVITAMINS, THERA 1 EACH TAB PO SCH (09:00)
[2024-03-23] MEDS ORDERED: ENOXAPARIN 40 MG/0.4 ML SYRINGE SQ SCH (09:00)
[2024-03-23] MEDS ORDERED: METOPROLOL SUCCINATE (ER) 100 MG TAB.ER.24H PO SCH (09:00)
[2024-03-23] MEDS ORDERED: FUROSEMIDE 20 MG TAB PO SCH (09:00)
[2024-03-23] MEDS ORDERED: MELOXICAM 7.5 MG TAB PO SCH (09:00)
[2024-03-23] MEDS ORDERED: LOSARTAN 50 MG TAB PO SCH (09:00)
[2024-03-23] MEDS ORDERED: DAPAGLIFLOZIN PROPANEDIOL 5 MG TABLET PO SCH (09:00)
== END 2024-03-22 18:44 | disposition home or self-care (01) ==
LOC: EC 10:12 → 6NMEDSUR 14:03
PROVIDERS: ADMIT Student in an Organized Health Care Education/Training Program; ATTEND Student in an Organized Health Care Education/Training Program
DX: T42.4X1A Poisoning by benzodiazepines, accidental (unintentional), initial encounter (principal); G92.8 Other toxic encephalopathy; J44.9 Chronic obstructive pulmonary disease, unspecified; E11.42 Type 2 diabetes mellitus with diabetic polyneuropathy; J84.9 Interstitial pulmonary disease, unspecified; I44.0 Atrioventricular block, first degree; R00.1 Bradycardia, unspecified; R07.89 Other chest pain; G89.29 Other chronic pain; F17.200 Nicotine dependence, unspecified, uncomplicated; W19.XXXA Unspecified fall, initial encounter; I89.0 Lymphedema, not elsewhere classified; Z79.51 Long term (current) use of inhaled steroids; Z79.4 Long term (current) use of insulin; Z79.85 Long-term (current) use of injectable non-insulin antidiabetic drugs; Z79.01 Long term (current) use of anticoagulants; Z79.84 Long term (current) use of oral hypoglycemic drugs; Z79.1 Long term (current) use of non-steroidal anti-inflammatories (NSAID); Z79.899 Other long term (current) drug therapy; Z88.8 Allergy status to other drugs, medicaments and biological substances
CPT/HCPCS: 36415; 71046; 80053; 80306; 81003; 83605; 83735; 84484; 85025; 85610; 85730; 93005; 99285

== ENCOUNTER → 2024-04-10 | Outpatient (CLI) | payer OTHER ==
--- NOTE | 2024-04-10 12:06 | CTL ---
EXAMINATION TYPE: CT Low Dose Lung DATE OF EXAM ORDERED: 04/10/2024 HISTORY: . Low Dose CT Lung Screening CT DLP: 103.[address] CTDI: 2.6 mGy IV CONTRAST USED: None. SCREENING VISIT: 3 COMPARISON: 04/05/2023 TECHNIQUE: Low dose computed tomography scan was performed through the chest at 1 millimeter thick se ctions and reconstructed images in the coronal plane at [address] DIAGNOSTIC QUALITY: Satisfactory FINDINGS: LUNG NODULES: Scattered peripheral calcified granulomas measuring up to 2 mm. No concerning pulmonar y nodule greater than 4 mm in size. LUNGS: COPD: Severity: Mild Fibrosis: Severity: Mild Lymph nodes: None Other findings: None RIGHT PLEURAL SPACE: Effusion: None Calcification: None Thickening: None Pneumothorax: None LEFT PLEURAL SPACE: Effusion: None Calcification: None Thickening: None Pneumothorax: None HEART: Heart Size: Mildly enlarged Coronary calcification: Mild Pericardial effusion: None OTHER FINDINGS: Upper abdomen: No significant abnormality Bony thorax: Degenerative changes Supraclavicular region: No significant abnormalityOther: No significant abnormalityI IMPRESSION: Benign FOLLOW UP CT CHEST RECOMMENDATION: Follow-up screening in one year CT LUNG RAD: LUNG RAD CATEGORY 2 benign appearance and behavior [facility], , 04/10/2024 12:04 PM
== END | disposition home or self-care (01) ==
LOC: RADCTMAIN 10:55
PROVIDERS: ATTEND Internal Medicine Hospice and Palliative Medicine
DX: Z87.891 Personal history of nicotine dependence
CPT/HCPCS: 71271

== ENCOUNTER → 2024-08-15 | Outpatient (CLI) | payer OTHER ==
--- NOTE | 2024-08-15 10:33 | BD ---
EXAMINATION TYPE: Axial Bone Density DATE OF EXAM: 08/15/2024 CLINICAL HISTORY: 69 years old Male. ICD-10 CODE: M81.0 AGE RELATED OSTEOPOROSIS , Additional Histo ry: Height: 6 ft 3 in Weight: 215 FRAX RISK QUESTIONS: Alcohol (3 or more units per day): no Family History (Parent hip fracture): unknown Glucocorticoids (More than 3mos): no (Ex: prednisone, prednisolone, methylprednisolone, dexamethasone, and hydrocortisone). History of Fracture in Adulthood: yes Secondary Osteoporosis: 1. Type 1 Diabetes: no 2. Hyperthyroidism: no 4. Malnutrition: no 5. Chronic liver disease: no Rheumatoid Arthritis: no Current Tobacco Use: yes RISK FACTORS HISTORY OF: Surgery to Spine/Hip(right/left)/Wrist (right/left): rt hip surg 2020 / lumbar surg 2019 MEDICATIONS: Thyroid Medications: none Osteoporosis Medications: none EXAM MEASUREMENTS: Bone mineral density about the L hip (g/cm2): 0.486 T Score values are as follows: -----L Neck: -4.0 -----L Total: -3.6 Z Score values are as follows: -----L Neck: -3.7 -----L Total: -3.5 baseline Bone mineral density about the L Wrist (g/cm2): 0.576 T Score values are as follows: -----Dist. R+U: -3.2 -----Prox. R+U: -2.7 -----Radius total: -2.6 Z Score values are as follows: -----Dist. R+U: -2.4 -----Prox. R+U: -1.9 -----Radius total: -1.8 baseline FRAX%s: The graph provided illustrates a 37.8 % chance for a major osteoporotic fx and a 28.2 % chanc e for the hips probability for fx in 10 years time. IMPRESSION: Osteoporosis (T Score less than -2.5). There is increased fracture risk and therapy is usually indicated based on age. Re-Screen 1-2 years. NOTE: T-SCORE=SD OF THE YOUNG ADULT MEAN. [facility], , 08/15/2024 10:27 AM
--- NOTE | 2024-08-15 10:43 | US ---
EXAMINATION TYPE: US duplex aorta DATE OF EXAM: 08/15/2024 COMPARISON: NONE CLINICAL INDICATION: Male, 69 years old with history of F17.210 CURRENT SMOKER; TECHNIQUE: Multiple sonographic images of the abdominal aorta are obtained with grayscale and color D oppler imaging. 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 [facility], , 08/15/2024 10:41 AM
== END | disposition home or self-care (01) ==
LOC: RADBDWWP 09:51
PROVIDERS: ATTEND Internal Medicine Hospice and Palliative Medicine
DX: M81.0 Age-related osteoporosis without current pathological fracture (principal); F17.210 Nicotine dependence, cigarettes, uncomplicated; I70.0 Atherosclerosis of aorta
CPT/HCPCS: 77080; 93979

== ENCOUNTER → 2024-11-28 | Outpatient (CLI) | payer OTHER ==
--- NOTE | 2024-11-28 13:50 | US ---
EXAMINATION TYPE: US carotid duplex BILAT DATE OF EXAM: 11/28/2024 COMPARISON: NONE CLINICAL INDICATION: Male, 69 years old with history of R55 SYNCOPE; Syncope Additional History: .... TECHNIQUE: Grayscale, color Doppler and spectral Doppler evaluation of the bilateral carotid systems and vertebral arteries. Indirect Doppler criteria was utilized. 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 Hemodynamically significant stenosis left ICA PSV 125-180 cm/sec and ICA/CCA PSV Ratio ? 2.0 is also consistent with 50-69% stenosis Color Doppler imaging shows patency with blood flow throughout the carotid artery. IMPRESSION: Right: Less than 50% stenosis of the carotid bifurcation. Left: 50-69% stenosis of the carotid bifurcation. Criteria for Assigning % of Stenosis / Diameter reduction (Estimation based on the indirect measurements of the internal carotid artery velocities (ICA PSV). 1. Normal (no stenosis)=ICA PSV < 180 cm/s: ratio < 2.0: ICA EDV<40 cm/s. 2. Less than 50% stenosis=ICA PSV < 180 cm/s: ratio < 2.0: ICA EDV<40 cm/s. 3. 50 to 69% stenosis=ICA PSV of 180 to 230 cm/s: ration 2.0 ? 4.0: ICA EDV 40-100 cm/s. PSV 125-180 cm/sec and ICA/CCA PSV Ratio ? 2.0 is also consistent with 50-69% stenosis 4. Greater than 70% stenosis to near occlusion= ICA PSV > 230 cm/s: ratio > 4.0: ICA EDV > 100 cm/s. 5. Near occlusion= ICA PSV velocities may be low or undetectable: variable ratio and ICA EDV. 6. Total occlusion=unable to detect flow. [facility], , 11/28/2024 1:48 PM
== END | disposition home or self-care (01) ==
LOC: RADUSWWP 12:20
PROVIDERS: ATTEND Internal Medicine Hospice and Palliative Medicine
DX: I65.23 Occlusion and stenosis of bilateral carotid arteries (principal); R55 Syncope and collapse
CPT/HCPCS: 93880

== ENCOUNTER → 2025-01-29 | Outpatient (CLI) | payer OTHER ==
--- NOTE | 2025-01-30 10:29 | CT ---
EXAMINATION TYPE: CT pelvis wo con DATE OF EXAM: 01/29/2025 11:22 AM COMPARISON: None. CLINICAL INDICATION: Male, 69 years old with history of M54.50 LOW BACK PAIN, R10.2 PELVIC AND PERINE AL GRETCHEN; low back into buttock. TECHNIQUE: CT of the pelvis without contrast. Sagittal and coronal reformats were created on a [employer] workstation. Oral contrast used: without Oral Contrast (none if empty) CT DLP: 2007.0 mGycm, Automated exposure control for dose reduction was used. FINDINGS: Mild to moderate atherosclerotic calcifications visualized lower abdominal aorta and common iliac art eries. Previous antegrade intramedullary nail with screw fixation proximal right femur. There is underlying moderate degenerative change at both hips. There is a 3.2 cm avulsion fracture fragment of the right ischial tuberosity displaced inferiorly by 1.6 cm. Unusual concave contour at the ischium, refer to coronal image 65. A pathologic fracture is i n the differential. There is adjacent sclerosis and slight cortical angulation corresponding to either a subacute versus insufficiency/stress fracture of the inferior right pubic ramus. Prostate gland enlargement 5.6 cm wide. A couple punctate phleboliths. Bladder is urine distended. Degenerative bony ankylosis across the SI joints. Diffuse osteopenia. Previous L4-L5 5 intraspinous f usion. Severe hypertrophic facet arthropathy visualized lower lumbar spine. Suspect chronic inferior plates were also noted at L4. No abnormal fluid collection in the pelvis. Prominent bilateral inguinal lymph nodes measuring up to 1.7 cm short axis on the right and 1.9 cm sh ort axis on the left. Please refer to coronal images 32 and 31. IMPRESSION: 1. Avulsion fracture right ischial tuberosity corresponding to the hamstrings origin. There is 1.6 c m of fracture displacement with the avulsion fragment measuring 3.2 cm. Given the unusual contour at the site of fracture, the possibility of a pathologic fracture is not entirely excluded. 2. Adjacent nondisplaced stress/insufficiency fracture versus subacute healing fracture at the adjace nt inferior right pubic ramus. 3. Mildly enlarged bilateral inguinal lymph nodes measuring up to 1.9 cm short axis may be reactive/p ost inflammatory. Consider ultrasound follow-up in 6-8 weeks to ensure stability/resolution. Clinical follow-up can also be performed. [facility], , 01/30/2025 10:26 AM
== END | disposition home or self-care (01) ==
LOC: RADCTMAIN 09:59
PROVIDERS: ATTEND Internal Medicine Hospice and Palliative Medicine
DX: S32.614A Nondisplaced avulsion fracture of right ischium, initial encounter for closed fracture (principal); R59.0 Localized enlarged lymph nodes; M47.816 Spondylosis without myelopathy or radiculopathy, lumbar region; M43.26 Fusion of spine, lumbar region; X58.XXXA Exposure to other specified factors, initial encounter
CPT/HCPCS: 72131; 72192